=== PATIENT | female | born 1960 | race African-American/Black ===

== ENCOUNTER 2019-01-19 10:02 | Inpatient (IN) | payer OTHER ==
[2019-01-19] VITALS (11 sets, daily range): BP systolic 96–125; BP diastolic 55–63
[~2019-01-19] VITALS: Ht 160 cm; Wt 56.7 kg
--- NOTE | 2019-01-19 09:24 | NUR ---
ED Nurse Note: patient was brought in by RA from home, complaining of SOB, respiratory disstress, chest pain, and tightness. patient is spitting out blood clots while she coughs, AAO x 4, skin is dry, intact. by arriving in ER patient's O2 sat was 65%, RN placed simple mask for 10L. patient was placed in gown and connected to the monitor, will continue to monitor.
--- NOTE | 2019-01-19 09:56 | Emergency Room Report ---
History of Present Illness General Chief Complaint: Dyspnea/Respdistress Source: Patient, EMS Present Illness HPI This is a 58-year-old female with a history of pulmonary embolism, on Coumadin, who complains of several days of worsening shortness of breath that is exacerbated by exertion. Alleviated by rest. She also complains some chest pain when she coughs. She also complains of blood tinge in her sputum when she coughs. She denies any fever. She denies any melena. She denies any abdominal pain. Allergies: Coded Allergies: No Known Allergies (Unverified , 01/19/19) Patient History Past Medical History: see triage record, HTN Past Surgical History: none Pertinent Family History: HTN Nursing Documentation-PMH Hx Hypertension: Yes Hx Asthma: Yes Hx COPD: Yes - emphysema Review of Systems All Other Systems: negative except mentioned in HPI Physical Exam Vital Signs Date Time Temp Pulse Resp B/P (MAP) Pulse Ox O2 Delivery O2 Flow Rate FiO2 01/19/19 09:03 108 18 100/45 96 Nasal Cannula 4.0 01/19/19 09:16 98.0 General Appearance: well appearing, no apparent distress ENT: hearing grossly normal, normal voice Neck: full range of motion, supple Respiratory: lungs clear, no respiratory distress, crackles, speaking full sentences Gastrointestinal: normal inspection Musculoskeletal: normal inspection Neurologic: normal inspection, alert, oriented x3 Procedures Critical Care Time Critical Care Time Due to patient's severe illness: The patient was monitored and multiple bedside evaluations. I spent approximately 45 minutes of critical care time on this patient. This excluded any procedures or with any other patient. This is exclusive in the care of this patient in order stabilizer. Medical Decision Making ER Course Patient has had multiple bedside evaluation. The patient was initially on a nonrebreather and wa slowly titrated to nasocannula. The patient has been afebrile. Sepsis workup was initiated. Blood culture lactic acid was initiated as well. I did review the patient's chest x-ray and CT scan as well. The patient has been started on IV Zosyn as well. I will also very concerned about gastrointestinal bleeding. Therefore, after reviewing the patient's blood work, rectal exam was done with a female narcotics detective. I see no evidence of melena. The patient has had no abdomen pain or hematemesis. The patient's blood pressure did drop and was improved using IV hydration and blood transfusion. At this time the patient care. The patient will to be transferred for higher level of care. Laboratory Tests Test 01/19/19 09:51 01/19/19 10:20 01/19/19 11:22 Arterial Blood pH 7.491 (7.350-7.450) Arterial Blood Partial Pressure CO2 28.3 mmHg (35.0-45.0) L Arterial Blood Partial Pressure O2 236.0 mmHg (75.0-100.0) H Arterial Blood HCO3 21.1 mmol/L (22.0-26.0) L Arterial Blood Oxygen Saturation 99.1 % (95-100) Arterial Blood Base Excess -2.1 (-2-2) L Prakash Test Positive White Blood Count 10.7 K/UL (4.8-10.8) Red Blood Count 3.00 M/UL (4.20-5.40) L Hemoglobin 6.2 G/DL (12.0-16.0) *L Hematocrit 20.3 % (37.0-47.0) L Mean Corpuscular Volume 68 FL (80-99) L Mean Corpuscular Hemoglobin 20.5 PG (27.0-31.0) L Mean Corpuscular Hemoglobin Concent 30.3 G/DL (32.0-36.0) L Red Cell Distribution Width 19.4 % (11.6-14.8) H Platelet Count 648 K/UL (150-450) H Mean Platelet Volume 4.8 FL (6.5-10.1) L Neutrophils (%) (Auto) % (45.0-75.0) Lymphocytes (%) (Auto) % (20.0-45.0) Monocytes (%) (Auto) % (1.0-10.0) Eosinophils (%) (Auto) % (0.0-3.0) Basophils (%) (Auto) % (0.0-2.0) Differential Total Cells Counted 100 Neutrophils % (Manual) 77 % (45-75) H Lymphocytes % (Manual) 15 % (20-45) L Monocytes % (Manual) 8 % (1-10) Eosinophils % (Manual) 0 % (0-3) Basophils % (Manual) 0 % (0-2) Band Neutrophils 0 % (0-8) Platelet Estimate Increased H Platelet Morphology Normal Polychromasia 1+ Hypochromasia 3+ Anisocytosis 2+ Microcytosis 2+ Prothrombin Time 90.3 SEC (9.30-11.50) H Prothrombin Time INR 9.7 (0.9-1.1) *H Sodium Level 136 MMOL/L (136-145) Potassium Level 3.7 MMOL/L (3.5-5.1) Chloride Level 102 MMOL/L (98-107) Carbon Dioxide Level 27 MMOL/L (21-32) Anion Gap 7 mmol/L (5-15) Blood Urea Nitrogen 13 mg/dL (7-18) Creatinine 0.7 MG/DL (0.55-1.30) Estimate Glomerular Filtration Rate > 60 mL/min (>60) Glucose Level 100 MG/DL (74-106) Lactic Acid Level 1.50 mmol/L (0.4-2.0) Calcium Level 9.2 MG/DL (8.5-10.1) Magnesium Level 1.9 MG/DL (1.8-2.4) Total Bilirubin 0.2 MG/DL (0.2-1.0) Aspartate Amino Transferase (AST) 20 U/L (15-37) Alanine Aminotransferase (ALT) 34 U/L (12-78) Alkaline Phosphatase 100 U/L (46-116) Total Creatine Kinase 45 U/L (26-308) Creatine Kinase MB 0.9 NG/ML (0.0-3.6) Creatine Kinase MB Relative Index 2.0 Troponin I 0.000 ng/mL (0.000-0.056) Total Protein 7.3 G/DL (6.4-8.2) Albumin 2.7 G/DL (3.4-5.0) L Globulin 4.6 g/dL Albumin/Globulin Ratio 0.6 (1.0-2.7) L Urine Color Yellow Urine Appearance Clear Urine pH 6 (4.5-8.0) Urine Specific [place] 1.015 (1.005-1.035) Urine Protein Negative (NEGATIVE) Urine Glucose (UA) Negative (NEGATIVE) Urine Ketones Negative (NEGATIVE) Urine Blood 4+ (NEGATIVE) H Urine Nitrite Negative (NEGATIVE) Urine Bilirubin Negative (NEGATIVE) Urine Urobilinogen Normal MG/DL (0.0-1.0) Urine Leukocyte Esterase 3+ (NEGATIVE) H Urine RBC 2-4 /HPF (0 - 2) H Urine WBC 20-30 /HPF (0 - 2) H Urine Squamous Epithelial Cells Few /LPF (NONE/OCC) Urine Bacteria Few /HPF (NONE) EKG Diagnostic Results EKG Time: 09:56 Rate: normal Rhythm: NSR ST Segments: no acute changes ASA given to the pt in ED: No Last Vital Signs Date Time Temp Pulse Resp B/P (MAP) Pulse Ox O2 Delivery O2 Flow Rate FiO2 01/19/19 09:16 98.0 100 28 102/60 100 Simple Mask 10.0 Disposition: [facility]FER [facility] Condition: Serious ANDREW LEONARD Jan 19, 2019 09:56
[~2019-01-19 10:02] MED LIST: ACETAMINOPHEN-1 EACH ORAL; ETHAMBUTOL HCL400 MG PO; NORVASC10 MG ORAL; VENTOLIN HFA18 GM INH
--- NOTE | 2019-01-19 10:04 | NUR ---
ED Nurse Note: RT at bedside for imaging.
[2019-01-19] MEDS ORDERED: Norco 5mg/325mg tab ORAL ONE (10:15)
[2019-01-19 10:42] LABS: HEMATOCRIT 20.3 % (37.0-47.0); MEAN CORPUSCULAR VOLUME 68 FL (80-99); PLATELET COUNT 648 K/UL (150-450); RED CELL DISTRIBUTION WIDTH 19.4 % (11.6-14.8); WHITE BLOOD COUNT 10.7 K/UL (4.8-10.8)
[2019-01-19 10:48] LABS: HEMOGLOBIN 6.2 G/DL (12.0-16.0)
[2019-01-19 10:52] LABS: ANION GAP 7 mmol/L (5-15); BLOOD UREA NITROGEN 13 mg/dL (7-18); CALCIUM 9.2 MG/DL (8.5-10.1); CARBON DIOXIDE 27 MMOL/L (21-32); CHLORIDE 102 MMOL/L (98-107); CREATININE 0.7 MG/DL (0.55-1.30); POTASSIUM 3.7 MMOL/L (3.5-5.1); SODIUM 136 MMOL/L (136-145)
[2019-01-19 10:56] LABS: INR 9.7 (0.9-1.1)
[2019-01-19 11:06] LABS: ALANINE AMINOTRANSFERASE 34 U/L (12-78); ALBUMIN 2.7 G/DL (3.4-5.0); ALBUMIN/GLOBULIN RATIO 0.6 (1.0-2.7); ALKALINE PHOSPHATASE 100 U/L (46-116); ASPARTATE AMINO TRANSFERASE 20 U/L (15-37); BILIRUBIN,TOTAL 0.2 MG/DL (0.2-1.0); CKMB 0.9 NG/ML (0.0-3.6); CREATINE KINASE 45 U/L (26-308)
[2019-01-19] MEDS ORDERED: Piperacillin/Tazobactam 3.375 GM in NS 110 ML IVPB ONE (11:15)
--- NOTE | 2019-01-19 11:26 | NUR ---
ED Nurse Note: Pt urinated, using bedpan without any difficulty. Urine collected and sent to lab.
[2019-01-19] MEDS ORDERED: Isovue-300 100ml vial INJ PRN (11:30)
[2019-01-19 11:41] LABS: APPEARANCE,URINE CLEAR; BILIRUBIN, URINE NEGATIVE (NEGATIVE); GLUCOSE, URINE (UA) NEGATIVE (NEGATIVE); KETONES,URINE NEGATIVE (NEGATIVE); LEUKOCYTE ESTERASE ,URINE 3+ (NEGATIVE); NITRITE,URINE NEGATIVE (NEGATIVE); PH,URINE 6 (4.5-8.0); PROTEIN,URINE NEGATIVE (NEGATIVE); UROBILINOGEN,URINE NORMAL MG/DL (0.0-1.0)
[2019-01-19 11:54] LABS: COLOR,URINE YELLOW
--- NOTE | 2019-01-19 12:25 | NUR ---
ED Nurse Note: blood transfusion started at 1225 at the right AC 20 ga IV. Pre transfusion VS are oral Temp 97.9, HR 94, RR 20, BP 96/55. patient educated about transfusion reactions. RN at bed side to monitor patient during this period of time.
--- NOTE | 2019-01-19 12:40 | NUR ---
ED Nurse Note: 15 min pass afterv start, VSS: oral Temp 98.5, HR 89, RR 30, BP 98/55. no S/S of transfusion reaction at this time. AAO x 4. will continue to monitor.
[2019-01-19] MEDS ORDERED: Pantoprazole 80 MG in NS 250 ML IV ONE (13:00)
[2019-01-19] MEDS ORDERED: Pantoprazole Inj IVP ONE (13:00)
[2019-01-19] MEDS ORDERED: Pantoprazole Inj ONE (13:42)
--- NOTE | 2019-01-19 14:55 | NUR ---
ED Nurse Note: 15 min pass afterv start, VSS: oral Temp 98.1, HR 101, RR 30, BP 9100/56. no S/S of transfusion reaction at this time. AAO x 4. will continue to monitor.
--- NOTE | 2019-01-19 14:55 | NUR ---
ED Nurse Note: second unit of blood transfusion started at 1440 at the right AC 20 ga IV. Pre transfusion VS are oral Temp98.0, HR 94, RR 20, BP 97/44. patient educated about transfusion reactions. RN at bed side to monitor patient during this period of time.
[2019-01-19] MEDS ORDERED: Morphine Sulfate 2mg/ml Inj(IV/IM USE ONLY) IVP ONE ×3 (15:00→20:00)
--- NOTE | 2019-01-19 16:30 | NUR ---
ED Nurse Note: 2 bags of RBC infusion finished. no transfusion reaction reported by pt or noticed by RNs. BP 98/58, HR 99, RR 30, SAT 100% on 2 L NC at this time.
[2019-01-19] MEDS ORDERED: Ipratropium 0.02% Inh Soln 2.5ml UD HHN ONE (18:00)
[2019-01-19] MEDS ORDERED: Albuterol ud Inhalation HHN ONE ×2 (18:00→22:00)
--- NOTE | 2019-01-19 18:19 | NUR ---
ED Nurse Note: HANDED THE DISC COPY OF ALL RADIOLOGY RESULT TO BIPIN
[2019-01-19] MEDS ORDERED: WARFARIN SODIUM5 MG ORAL (18:50)
[2019-01-19] MEDS ORDERED: Albuterol 90mcg Inhaler 8gm INH PRN (20:30)
--- NOTE | 2019-01-19 22:15 | History and Physical Report ---
DATE OF ADMISSION: 01/19/2019 REASON FOR ADMISSION: 1. Elevated INR. 2. Hemoptysis. 3. Shortness of breath. HISTORY OF PRESENT ILLNESS: The patient is a 58-year-old white female with a known history of pulmonary embolism, who had been on anticoagulant, Coumadin, who presented to the emergency room for further evaluation and care of worsening shortness of breath. She noted that her shortness of breath was worsened by exertion and was alleviated by resting. No current active chest pain. The patient notes that her shortness of breath with some night sweats and fevers had started last week, and that today she started noticing every time she coughed, there was blood-tinged sputum along with an occasional nosebleed. Drug screen was positive for PCP and cocaine. At that time, INR was checked. Her INR level was 9.7 with hemoglobin of 6.2. ALLERGIES: No known drug allergies. PAST MEDICAL HISTORY: 1. Substance abuse. 2. Pulmonary embolism. 3. Hypertension. PAST SURGICAL HISTORY: None. FAMILY HISTORY: Positive for hypertension. REVIEW OF SYSTEMS: NEUROLOGIC: The patient denies headache, change in vision, syncope, or presyncopal episodes. CARDIOVASCULAR: No current chest pain, palpitations, or angina. PULMONARY: Shortness of breath with productive blood-tinged sputum. GASTROINTESTINAL/GENITOURINARY: No change in urinary or bowel habits. No nausea, vomiting, or diarrhea. ENDOCRINOLOGY: The patient was having some night sweats and fevers. MUSCULOSKELETAL: The patient is feeling weak, tired, and fatigued. PHYSICAL EXAMINATION: VITAL SIGNS: Blood pressure 108/59, temperature 98.1, pulse 90, respiratory rate 18, saturation 100% oxygen saturation on 2 L nasal cannula. GENERAL: The patient is awake, in mild respiratory distress. HEENT: Extraocular muscles intact. No lymphadenopathy. Oropharyngeal mucosa is clear and dry. CARDIOVASCULAR: S1 and S2. No rubs or gallops. No S3, no S4. PULMONARY: Mild upper airway wheezing with fair air movement in both lung mazariegos. ABDOMEN: Nondistended and nontender. EXTREMITIES: No edema. LABORATORY DATA: Labs dated January 19, 2019, white cell count 10.7, hemoglobin 6.2, and platelet count 648,000. Toxicology screen, positive for PCP and cocaine. Sodium 136, potassium 3.7, creatinine 0.7. Troponin zero. Albumin 2.7. ASSESSMENT AND PLAN: 1. Coumadin toxicity with elevated INR of 9.7. I spoke to Dr. Flor and requested 2 units of FFP to assist with the reversal of elevated INR. The patient also received 2 units of packed red blood cells. Coumadin will be held. 2. Polysubstance abuse with positive PCP and cocaine. The patient will require counseling during admission. 3. Shortness of breath. CT of the chest noted. The patient was referred to [facility] and was declined by the thoracic surgeon. 4. Shortness of breath and bronchospasm. We will continue nebulizer treatments. 5. Anemia with hemoglobin of 6.2 secondary to coagulopathy. The patient to be given FFP and blood transfusion. Gastroenterology, Dr. Yoder, has been consulted. 6. Abnormal CT. 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 Jim Pinto MD DR: JE JOB#: [id number] CC:
--- NOTE | 2019-01-19 22:42 | NUR ---
ED Nurse Note: Reporte given to Adriano LEMUS in ICU, all pt report and status and vital signs as well as conditions has been reported. pt stable for transfer.
--- NOTE | 2019-01-19 22:48 | NUR ---
ED Nurse Note: PT refused CRE/ VRE swab.
--- NOTE | 2019-01-19 23:00 | NUR ---
NURSE NOTES: Patient admitted to ICU from ER. Patient is alert and oriented. ON Nasal Cannula at 2L. SpO2 85% with good wave form. Right lung sound is absent and left lung sound wheezing. Patient noted have 2 AC R and L both 20g. Patient HR 111ST. Cultures pending. NS at 75ml/hr. 2nd FFP hung.
[2019-01-19] MEDS: Morphine Sulfate 2mg/ml Inj(IV/IM USE ONLY) IVP PRN (23:35)
[2019-01-20] VITALS (24 sets, daily range): BP systolic 105–175; BP diastolic 44–92
--- NOTE | 2019-01-20 | NUR ---
NURSE NOTES: Patient noted to have a bout of SOB, Patient MDI treatment given but with no relive. Patient SpO2 decreased to the 60s and 70s. Called Dr. Pinto and notified. Added albuterol to nebulizer.
--- NOTE | 2019-01-20 00:51 | NUR ---
RESPIRATORY NOTE: PT. EXPERIENCING SOB. ALBUTEROL MDI ADMINISTERED BUT LITTLE TO NO IMPROVEMENT WAS NOTED. PT. SATURATION CONTINUES TO BE LOW. SUGGESTED PT. TO BE PLACED ON VENTURI MASK BUT PT. REFUSES VENTURI MASK. PT PLACED ON NASAL CANNULA AT 3LPM 02. WILL CONTINUE TO MONITOR.
--- NOTE | 2019-01-20 02:00 | NUR ---
RESPIRATORY NOTE: PT PLACE ON BIPAP DUE TO ACUTE SOB EPISODE. SETTINGS 15/6, RATE 16, 100% FIO2. PT. CURRENTLY ON FACIAL MASK. SPONGE TAPE IN PLACE TO PREVENT FACIAL WOUNDS. PT. UNDERSTANDS REASON FOR BEING PLACED ON BIPAP. ALARM SET, ON AND AUDIBLE. PT REMAINS TACHYPNEIC WITH A RR OF 28. WILL CONTINUE TO MONITOR.
--- NOTE | 2019-01-20 02:00 | NUR ---
NURSE NOTES: Patient had another episode of SOB. Patient switch to venturi mask. Called Dr. Dorsey and notified of patients status. Orders for BIPAP 15/6 at 100%. Patient Spo2 increased to 100%. BP remains normotensive. FFP almost done, no reaction so far, remains afebrile.
[2019-01-20] MEDS: Albuterol ud Inhalation HHN SCH ×6 (02:36→23:05)
[2019-01-20] MEDS: Morphine Sulfate 2mg/ml Inj(IV/IM USE ONLY) IVP PRN ×5 (03:10→20:17)
--- NOTE | 2019-01-20 04:00 | NUR ---
NURSE NOTES: Patient is more calm and relaxed at this time. She does continue to state chest and head pain rating of 5/10. Patient already given Morphine 0.5mg PRN twice. Patients work of breathing has been better controlled since the BIPAP and the PRN breathing treatments. Current HR is 102 ST, 126/72, 98.2F, SpO2 100%. Patient is still slightly tachypneic but less than before and better tolerated per patients own statements.
--- NOTE | 2019-01-20 05:14 | NUR ---
RESPIRATORY NOTE: PT. STABLE ON BIPAP WITH CURRENT SETTINGS. PT. REMAINS TACHYPNEIC BUT MORE RELAXED AND CONDITION HAS IMPROVED SINCE BEING PLACED ON BIPAP AND POST BREATHING TREATMENT. SPONGE TAPE SECURELY IN PLACE. NO SKIN BREAKDOWN NOTED.
--- NOTE | 2019-01-20 06:00 | NUR ---
NURSE NOTES: Patient changed and cleaned. Patient continues to be on BIPAP, Fio2 now at 80%. Patient continues to have Pinkish-red sputum. Patient has yaunker suction at bedside. NAD at this time.
[2019-01-20 06:17] LABS: HEMATOCRIT 24.9 % (37.0-47.0); HEMOGLOBIN 7.7 G/DL (12.0-16.0); MEAN CORPUSCULAR VOLUME 74 FL (80-99); PLATELET COUNT 464 K/UL (150-450); RED BLOOD COUNT 3.37 M/UL (4.20-5.40); RED CELL DISTRIBUTION WIDTH 19.3 % (11.6-14.8); WHITE BLOOD COUNT 14.1 K/UL (4.8-10.8)
[2019-01-20 06:50] LABS: ANION GAP 8 mmol/L (5-15); BLOOD UREA NITROGEN 5 mg/dL (7-18); CALCIUM 8.7 MG/DL (8.5-10.1); CARBON DIOXIDE 26 MMOL/L (21-32); CHLORIDE 103 MMOL/L (98-107); CREATININE 0.6 MG/DL (0.55-1.30); POTASSIUM 3.9 MMOL/L (3.5-5.1); SODIUM 137 MMOL/L (136-145)
--- NOTE | 2019-01-20 07:30 | NUR ---
RESPIRATORY NOTE: Received pt on Bipap 15/6- 80% FiO2, pt is tolerating well. Pt is awake, alert, but SOB, shallow, tachypneic RR 29-35bpm. Left rhonchi diminished and right diminished breath sounds heard upon auscultation. Orally suctioned small amount of thick/thin red, brown and red specks secretions per pt. Family member at bedside. Took off mask to check toleration and skin breakdown. No redness or skin breakdown noted. Foam tapes reapplied on cheeks, chin and nose bridge to prevent skin breakdown. Pt complained "can't breath" when off Bipap and on 5L NC. Breathing TX given without any adverse reactions. Alarms are on and audible, Bipap is plugged into the red outlet. Ambu bag is at bedside. Will continue to monitor pt.
--- NOTE | 2019-01-20 07:40 | NUR ---
NURSE NOTES: Report received from Edilson LEMUS. Pt alert and oriented x4, able to make needs known. Pt connected to court monitor, ST. Pt on bipap 10/05. Purewick intact and in place. RAC 20 G intact with maintenance IVF running. at bedside. Safety measures in place with bed locked and in lowest position, side rails x3 up and bed alarm on. Will continue to monitor.
--- NOTE | 2019-01-20 08:01 | Nephrology Progress Note ---
Assessment/Plan Assessment/Plan A/P 1) Coumadin toxicity- last INR 9.7 - AM INR pending - s/p FFP 2) Anemia- Hgb 7.7 post blood tx. - GI to evaluate 3) Resp FL- on BiPAP, pulm to manage 4) Polysubstance Abuse- PCP and cocaine - will need substance abuse counselling 5) UTI- Rocephin 6) ?? 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 ID to address and evaluate need for ethambutal 7) DVT prophylaxsis- elevated INR, just monitor Subjective Date patient seen: Jan 20, 2019 Time patient seen: 07:54 ROS Limited/Unobtainable: No Respiratory: Reports: shortness of breath Allergies: Coded Allergies: No Known Allergies (Unverified , 01/19/19) All Systems: reviewed and negative except above Subjective Patient with BiPAP on. Feeling better Objective Last 24 Hour Vital Signs Date Time Temp Pulse Resp B/P (MAP) Pulse Ox O2 Delivery O2 Flow Rate FiO2 01/20/19 07:19 100 33 100 Bi-pap 80 01/20/19 07:00 102 30 132/92 (105) 100 01/20/19 06:00 95 26 116/69 (85) 100 01/20/19 05:14 118 33 100 Facial 100 01/20/19 05:00 80 01/20/19 05:00 117 28 143/84 (103) 100 01/20/19 04:00 107 01/20/19 04:00 100 01/20/19 04:00 Bi-pap Bi-pap 01/20/19 04:00 97.9 101 30 126/72 (90) 100 01/20/19 03:00 115 36 106/55 (72) 83 01/20/19 02:45 105 28 100 Bi-pap 100 01/20/19 02:36 111 39 100 Facial 100 01/20/19 02:36 111 39 100 Bi-pap 100 01/20/19 02:00 108 34 100 Facial 100 01/20/19 02:00 110 36 125/72 (89) 83 01/20/19 01:52 100 01/20/19 01:00 107 36 105/44 (64) 83 01/20/19 00:52 103 29 88 Nasal Cannula 3.0 32 01/20/19 00:49 108 35 88 Nasal Cannula 3.0 32 01/20/19 00:00 103 01/20/19 00:00 2.0 01/20/19 00:00 97 31 120/53 (75) 88 01/20/19 00:00 Bi-pap 01/19/19 23:28 110 01/19/19 23:21 Nasal Cannula 2.0 01/19/19 23:18 98.6 103 29 125/61 (82) 90 01/19/19 23:03 98.1 87 19 110/61 100 Nasal Cannula 2.0 40 87 01/19/19 22:40 98.1 87 19 110/61 100 Nasal Cannula 2.0 87 01/19/19 22:10 40 01/19/19 22:05 96 20 100 Nasal Cannula 5.0 40 01/19/19 21:14 98.1 90 19 108/63 100 Nasal Cannula 2.0 90 01/19/19 19:15 98.1 90 18 108/59 100 Nasal Cannula 2.0 01/19/19 18:29 100 32 100 Nasal Cannula 4.0 40 01/19/19 17:57 95 27 100 Nasal Cannula 5.0 40 01/19/19 17:57 40 01/19/19 17:57 95 27 Nasal Cannula 5.0 40 01/19/19 17:29 98 21 107/62 98 Nasal Cannula 2.0 01/19/19 16:30 98.1 99 30 98/58 100 Nasal Cannula 2.0 01/19/19 15:44 98.1 87 26 104/60 100 Nasal Cannula 2.0 01/19/19 15:30 98.1 01/19/19 12:40 98.5 89 30 98/55 100 Room Air 2.0 01/19/19 12:20 97.9 94 25 96/55 99 Nasal Cannula 2.0 01/19/19 11:07 99.0 94 20 106/62 100 Simple Mask 10.0 01/19/19 09:16 98.0 100 28 102/60 100 Simple Mask 10.0 01/19/19 09:16 94 26 Simple Mask 10.0 01/19/19 09:03 108 18 100/45 96 Nasal Cannula 4.0 Intake and Output 01/19/19 01/20/19 19:00 07:00 Intake Total 1110 ml 925 ml Output Total 500 ml Balance 1110 ml 425 ml Intake Oral 400 ml IV Total 1110 ml 525 ml Output Urine Total 500 ml # Voids 1 1 Laboratory Tests 01/19/19 09:51: Arterial Blood pH 7.491H, Arterial Blood Partial Pressure CO2 28.3L, Arterial Blood Partial Pressure O2 236.0H, Arterial Blood HCO3 21.1L, Arterial Blood Oxygen Saturation 99.1, Arterial Blood Base Excess -2.1L, Prakash Test Positive 01/19/19 10:20: White Blood Count 10.7, Red Blood Count 3.00L, Hemoglobin 6.2*L, Hematocrit 20.3L, Mean Corpuscular Volume 68L, Mean Corpuscular Hemoglobin 20.5L, Mean Corpuscular Hemoglobin Concent 30.3L, Red Cell Distribution Width 19.4H, Platelet Count 648H, Mean Platelet Volume 4.8L, Neutrophils (%) (Auto) , Lymphocytes (%) (Auto) , Monocytes (%) (Auto) , Eosinophils (%) (Auto) , Basophils (%) (Auto) , Differential Total Cells Counted 100, Neutrophils % ( Manual) 77H, Lymphocytes % (Manual) 15L, Monocytes % (Manual) 8, Eosinophils % ( Manual) 0, Basophils % (Manual) 0, Band Neutrophils 0, Platelet Estimate IncreasedH, Platelet Morphology Normal, Polychromasia 1+, Hypochromasia 3+, Anisocytosis 2+, Microcytosis 2+, Prothrombin Time 90.3H, Prothromb Time International Ratio 9.7*H, Sodium Level 136, Potassium Level 3.7, Chloride Level 102, Carbon Dioxide Level 27, Anion Gap 7, Blood Urea Nitrogen 13, Creatinine 0.7, Estimat Glomerular Filtration Rate > 60, Glucose Level 100, Lactic Acid Level 1.50, Calcium Level 9.2, Magnesium Level 1.9, Total Bilirubin 0.2, Aspartate Amino Transf (AST/SGOT) 20, Alanine Aminotransferase (ALT/SGPT) 34, Alkaline Phosphatase 100, Total Creatine Kinase 45, Creatine Kinase MB 0.9, Creatine Kinase MB Relative Index 2.0, Troponin I 0.000, Total Protein 7.3, Albumin 2.7L, Globulin 4.6, Albumin/Globulin Ratio 0.6L 01/19/19 11:22: Urine Color Yellow, Urine Appearance Clear, Urine pH 6, Urine Specific [place] 1.015, Urine Protein Negative, Urine Glucose (UA) Negative, Urine Ketones Negative, Urine Blood 4+H, Urine Nitrite Negative, Urine Bilirubin Negative, Urine Urobilinogen Normal, Urine Leukocyte Esterase 3+H, Urine RBC 2-4H, Urine WBC 20-30H, Urine Squamous Epithelial Cells Few, Urine Bacteria Few, Urine Opiates Screen Negative, Urine Barbiturates Screen Negative, Phencyclidine (PCP ) Screen PositiveH, Urine Amphetamines Screen Negative, Urine Benzodiazepines Screen Negative, Urine Cocaine Screen PositiveH, Urine Marijuana (THC) Screen Negative 01/20/19 04:50: White Blood Count 14.1H, Red Blood Count 3.37L, Hemoglobin 7.7L, Hematocrit 24.9L, Mean Corpuscular Volume 74#L, Mean Corpuscular Hemoglobin 22.9L, Mean Corpuscular Hemoglobin Concent 31.1L, Red Cell Distribution Width 19.3H, Platelet Count 464H, Mean Platelet Volume 4.3L, Neutrophils (%) (Auto) , Lymphocytes (%) (Auto) , Monocytes (%) (Auto) , Eosinophils (%) (Auto) , Basophils (%) (Auto) , Neutrophils % (Manual) [Pending], Lymphocytes % (Manual) [Pending], Platelet Estimate [Pending], Platelet Morphology [Pending], Sodium Level 137, Potassium Level 3.9, Chloride Level 103, Carbon Dioxide Level 26, Anion Gap 8, Blood Urea Nitrogen 5L, Creatinine 0.6, Estimat Glomerular Filtration Rate > 60, Glucose Level 109H, Calcium Level 8.7 Height (Feet): 5 Height (Inches): 3.00 Weight (Pounds): 125 General Appearance: no apparent distress, alert EENT: normal ENT inspection Neck: normal alignment, supple Cardiovascular: normal rate, regular rhythm Respiratory/Chest: lungs clear, normal breath sounds Abdomen: non tender, soft Edema: no edema noted Arm (L), no edema noted Arm (R), no edema noted Leg (L), no edema noted Leg (R), no edema noted Pedal (L), no edema noted Pedal (R), no edema noted Generalized Jim Pinto MD Jan 20, 2019 08:01
[2019-01-20] MEDS ORDERED: cefTRIAXone 1gm/D5W 55ml IVPB SCH ×2 (09:30)
--- NOTE | 2019-01-20 09:56 | NUR ---
NURSE NOTES: Dr García here to see pt. STAT PT/INR ordered. Will continue to monitor.
--- NOTE | 2019-01-20 10:08 | NUR ---
NURSE NOTES: Dr Dorsey here to see pt. Dr tolentino pt can be downgraded to tele with bipap. Will continue to monitor.
--- NOTE | 2019-01-20 11:32 | Consultation ---
History of Present Illness General Date patient seen: Jan 20, 2019 Chief Complaint: Dyspnea/Respdistress Present Illness HPI 58 y/o F with hx of HTN, asthma/COPD, PE on Coumadin, substance abuse presents to ED on 01/19 with several days of worsening PARMAR, cough and chest pain when she coughs. She reports some blood tinged sputum. Patient reported some night sweats and fevers that started last week. Denied fever, melena, abd pain upon admission. UDS + PCP and cocaine. INR elevated upon admission to 9.7 and Hgb of 6.2 Allergies: Coded Allergies: No Known Allergies (Unverified , 01/19/19) Medication History Scheduled Albuterol Sulfate (Ventolin Hfa), 2 PUFFS INH EVERY 6 HOURS, (Reported) Amlodipine Besylate (Norvasc), 10 MG ORAL DAILY, (Reported) Warfarin Sod* (Warfarin Sod*), 5 MG ORAL DAILY, (Reported) Scheduled PRN Acetaminophen With Codeine #2 Tablet (Acetaminophen With Codeine #2 Tablet), 1 TAB ORAL Q6H PRN for For Pain, (Reported) Miscellaneous Medications Ethambutol Hcl (Ethambutol Hcl), 400 MG PO, (Reported) Patient History Healthcare decision maker Resuscitation status Full Code Advanced Directive on File No Patient History Narrative Pmhx: as above Shx: reviewed Fhx: non contributory Review of Systems All Other Systems: negative except mentioned in HPI Physical Exam Physical Exam Narrative GENERAL: The patient is awake, in mild respiratory distress. HEENT: Extraocular muscles intact. No lymphadenopathy. Oropharyngeal mucosa is clear and dry. CARDIOVASCULAR: S1 and S2. No rubs or gallops. No S3, no S4. PULMONARY: Mild upper airway wheezing with fair air movement in both lung mazariegos. ABDOMEN: Nondistended and nontender. EXTREMITIES: No edema. Last 24 Hour Vital Signs Date Time Temp Pulse Resp B/P (MAP) Pulse Ox O2 Delivery O2 Flow Rate FiO2 01/20/19 11:05 101 35 100 Bi-pap 70 01/20/19 10:00 107 36 123/83 (96) 100 01/20/19 09:00 106 35 147/74 (98) 98 01/20/19 08:45 104 33 100 Facial 70 01/20/19 08:00 98 01/20/19 08:00 97.6 95 28 128/66 (86) 100 2/25/19 08:00 Bi-pap Bi-pap Bi-pap 01/20/19 07:30 96 29 100 Facial 70 01/20/19 07:30 96 29 100 Bi-pap 70 01/20/19 07:19 100 33 100 Bi-pap 80 01/20/19 07:00 102 30 132/92 (105) 100 01/20/19 06:00 95 26 116/69 (85) 100 01/20/19 05:14 118 33 100 Facial 100 01/20/19 05:00 80 01/20/19 05:00 117 28 143/84 (103) 100 01/20/19 04:00 107 01/20/19 04:00 100 01/20/19 04:00 Bi-pap Bi-pap 01/20/19 04:00 97.9 101 30 126/72 (90) 100 01/20/19 03:00 115 36 106/55 (72) 83 01/20/19 02:45 105 28 100 Bi-pap 100 01/20/19 02:36 111 39 100 Facial 100 01/20/19 02:36 111 39 100 Bi-pap 100 01/20/19 02:00 108 34 100 Facial 100 01/20/19 02:00 110 36 125/72 (89) 83 01/20/19 01:52 100 01/20/19 01:00 107 36 105/44 (64) 83 01/20/19 00:52 103 29 88 Nasal Cannula 3.0 32 01/20/19 00:49 108 35 88 Nasal Cannula 3.0 32 01/20/19 00:00 103 01/20/19 00:00 2.0 01/20/19 00:00 97 31 120/53 (75) 88 01/20/19 00:00 Bi-pap 01/19/19 23:28 110 01/19/19 23:21 Nasal Cannula 2.0 01/19/19 23:18 98.6 103 29 125/61 (82) 90 01/19/19 23:03 98.1 87 19 110/61 100 Nasal Cannula 2.0 40 87 01/19/19 22:40 98.1 87 19 110/61 100 Nasal Cannula 2.0 87 01/19/19 22:10 40 01/19/19 22:05 96 20 100 Nasal Cannula 5.0 40 01/19/19 21:14 98.1 90 19 108/63 100 Nasal Cannula 2.0 90 01/19/19 19:15 98.1 90 18 108/59 100 Nasal Cannula 2.0 01/19/19 18:29 100 32 100 Nasal Cannula 4.0 40 01/19/19 17:57 95 27 100 Nasal Cannula 5.0 40 01/19/19 17:57 40 01/19/19 17:57 95 27 Nasal Cannula 5.0 40 01/19/19 17:29 98 21 107/62 98 Nasal Cannula 2.0 01/19/19 16:30 98.1 99 30 98/58 100 Nasal Cannula 2.0 01/19/19 15:44 98.1 87 26 104/60 100 Nasal Cannula 2.0 01/19/19 15:30 98.1 01/19/19 12:40 98.5 89 30 98/55 100 Room Air 2.0 01/19/19 12:20 97.9 94 25 96/55 99 Nasal Cannula 2.0 Intake and Output 01/19/19 01/20/19 19:00 07:00 Intake Total 1110 ml 925 ml Output Total 500 ml Balance 1110 ml 425 ml Intake Oral 400 ml IV Total 1110 ml 525 ml Output Urine Total 500 ml # Voids 1 1 Laboratory Tests Test 01/19/19 11:22 01/20/19 04:50 01/20/19 08:19 01/20/19 08:40 Urine Color Yellow Urine Appearance Clear Urine pH 6 (4.5-8.0) Urine Specific [place] 1.015 (1.005-1.035) Urine Protein Negative (NEGATIVE) Urine Glucose (UA) Negative (NEGATIVE) Urine Ketones Negative (NEGATIVE) Urine Blood 4+ (NEGATIVE) H Urine Nitrite Negative (NEGATIVE) Urine Bilirubin Negative (NEGATIVE) Urine Urobilinogen Normal MG/DL (0.0-1.0) Urine Leukocyte Esterase 3+ (NEGATIVE) H Urine RBC 2-4 /HPF (0 - 2) H Urine WBC 20-30 /HPF (0 - 2) H Urine Squamous Epithelial Cells Few /LPF (NONE/OCC) Urine Bacteria Few /HPF (NONE) Urine Opiates Screen Negative (NEGATIVE) Urine Barbiturates Screen Negative (NEGATIVE) Phencyclidine (PCP) Screen Positive (NEGATIVE) H Urine Amphetamines Screen Negative (NEGATIVE) Urine Benzodiazepines Screen Negative (NEGATIVE) Urine Cocaine Screen Positive (NEGATIVE) H Urine Marijuana (THC) Screen Negative (NEGATIVE) White Blood Count 14.1 K/UL (4.8-10.8) H Red Blood Count 3.37 M/UL (4.20-5.40) L Hemoglobin 7.7 G/DL (12.0-16.0) L Hematocrit 24.9 % (37.0-47.0) L Mean Corpuscular Volume 74 FL (80-99) #L Mean Corpuscular Hemoglobin 22.9 PG (27.0-31.0) L Mean Corpuscular Hemoglobin Concent 31.1 G/DL (32.0-36.0) L Red Cell Distribution Width 19.3 % (11.6-14.8) H Platelet Count 464 K/UL (150-450) H Mean Platelet Volume 4.3 FL (6.5-10.1) L Neutrophils (%) (Auto) % (45.0-75.0) Lymphocytes (%) (Auto) % (20.0-45.0) Monocytes (%) (Auto) % (1.0-10.0) Eosinophils (%) (Auto) % (0.0-3.0) Basophils (%) (Auto) % (0.0-2.0) Differential Total Cells Counted 100 Neutrophils % (Manual) 85 % (45-75) H Lymphocytes % (Manual) 12 % (20-45) L Monocytes % (Manual) 3 % (1-10) Eosinophils % (Manual) 0 % (0-3) Basophils % (Manual) 0 % (0-2) Band Neutrophils 0 % (0-8) Platelet Estimate Adequate Platelet Morphology Normal Polychromasia 1+ Hypochromasia 2+ Anisocytosis 1+ Microcytosis 2+ Schistocytes Rare Sodium Level 137 MMOL/L (136-145) Potassium Level 3.9 MMOL/L (3.5-5.1) Chloride Level 103 MMOL/L (98-107) Carbon Dioxide Level 26 MMOL/L (21-32) Anion Gap 8 mmol/L (5-15) Blood Urea Nitrogen 5 mg/dL (7-18) L Creatinine 0.6 MG/DL (0.55-1.30) Estimat Glomerular Filtration Rate > 60 mL/min (>60) Glucose Level 109 MG/DL (74-106) H Calcium Level 8.7 MG/DL (8.5-10.1) Prothrombin Time 30.0 SEC (9.30-11.50) H Prothromb Time International Ratio 3.0 (0.9-1.1) H Arterial Blood pH 7.418 (7.350-7.450) Arterial Blood Partial Pressure CO2 39.5 mmHg (35.0-45.0) Arterial Blood Partial Pressure O2 83.5 mmHg (75.0-100.0) Arterial Blood HCO3 24.9 mmol/L (22.0-26.0) Arterial Blood Oxygen Saturation 95.5 % (95-100) Arterial Blood Base Excess 0.4 (-2-2) Prakash Test Positive Microbiology Date/Time Source Procedure Growth Status 01/19/19 11:22 Urine,Clean Catch Urine Culture - Preliminary Resulted Height (Feet): 5 Height (Inches): 3.00 Weight (Pounds): 125 Medications Current Medications Medications (Trade) Dose Ordered Sig/Roxanne Route PRN Reason Start Time Stop Time Status Last Admin Dose Admin Acetaminophen (Tylenol) 650 mg Q4H PRN ORAL Mild Pain (Pain Scale 1-3) 01/19/19 20:30 02/18/19 20:29 Albuterol Sulfate (Proventil MDI) 2 puff Q4H PRN INH Shortness of Breath 01/19/19 20:30 02/18/19 20:29 01/20/19 00:49 Albuterol Sulfate (Proventil) 2.5 mg Q4HRT HHN 01/20/19 03:00 01/25/19 02:59 01/20/19 11:05 Ceftriaxone Sodium 1 gm/ Dextrose 55 ml @ 110 mls/hr Q24H IVPB 01/20/19 09:30 01/27/19 09:29 01/20/19 09:20 Dextrose (Dextrose 50%) 25 ml Q30M PRN IV Hypoglycemia 01/19/19 20:30 02/18/19 20:29 Dextrose (Dextrose 50%) 50 ml Q30M PRN IV Hypoglycemia 01/19/19 20:30 02/18/19 20:29 Diphenhydramine HCl (Benadryl) 25 mg Q6H PRN ORAL Itching/Pruritis 01/19/19 20:30 02/18/19 20:29 01/19/19 23:35 Iopamidol (Isovue-300 100ml) 100 ml NOW PRN INJ Radiology Procedure 01/19/19 11:30 01/21/19 11:16 Morphine Sulfate (Morphine Sulfate) 0.5 mg Q4H PRN IVP Moderate Pain (Pain Scale 4-6) 01/19/19 20:30 01/26/19 20:29 01/20/19 07:44 Ondansetron HCl (Zofran) 4 mg Q6H PRN IVP Nausea & Vomiting 01/19/19 20:30 02/18/19 20:29 Ondansetron HCl (Zofran) 4 mg Q6H PRN IVP Nausea & Vomiting 01/19/19 20:30 02/18/19 20:29 Pantoprazole (Protonix) 40 mg DAILY ORAL 01/19/19 21:00 02/18/19 20:59 01/20/19 09:20 Sodium Chloride 1,000 ml @ 75 mls/hr [id number] IV 01/19/19 20:30 02/18/19 20:29 01/20/19 09:20 Assessment/Plan Assessment/Plan Abx: Zosyn x1 01/19 Ceftriaxone 01/20- Assessment: Hemoptysis Cavitary PNA- r/o TB MRSA, vs aspiration pneumonia -CT chest: Irregular pleural thickening throught R hemithorax. Small amount of fluid and otherwise large amount of gas filling the R chest cavity. Severe centrilobular emphysematous changes throughout the left lung. Patchy consolidation with multiple areas of cavitation. Additional nodular densities and reticulonodular densities throught the left lung. Findings are compatible with an infectious/inflammatory process. Supratherapeutic INR Afebrile Leukocytosis -u/a wbc 20-30, nit neg, leuk +3; ucx p HTN asthma/COPD PE on Coumadin substance abuse -UDS+ cocaine, PCP Plan: -Continue empiric Ceftriaxone #1 and add Flagyl and IV Vancomycin for anaerobic and MRSA coverage, respectively -Airborne precautions -AFB sp cx x3, MTB pCR x1 -f/u cx -Monitor CBC/CMP, temperatures -f/u CT chest report -sp cx (bacterial and fungal) -ICU care -Aspiration precautions -Cocci ab, CrAg, Histoplasmas ab and ag, legionella ag urine, Asp ag, fungitell , TB spot Thank you for this consultation. Will continue to follow along with you. Discussed with Adrianna Abbott M.D. Jan 20, 2019 11:32
--- NOTE | 2019-01-20 11:34 | NUR ---
NURSE NOTES: Pt complaining of SOB while on bipap. RT called to assess. Will continue to monitor.
--- NOTE | 2019-01-20 12:00 | Consultation ---
DATE OF CONSULTATION: 01/20/2019 PULMONARY CONSULTATION CONSULTING PHYSICIAN: Yuri Dorsey M.D. HISTORY OF PRESENT ILLNESS: This is a 58-year-old female with a history of pulmonary embolism and chronic anticoagulation. She came to the hospital with shortness of breath. She was noted to have coagulopathy with high INR. It is also noted that drug screen is positive for PCP and cocaine. The patient underwent imaging studies in the ER and there was no obvious pneumothorax noted. The patient is now admitted to the ICU. PAST HISTORY: Pulmonary embolism, hypertension, and substance abuse. ALLERGIES: None. HOME MEDICATIONS: Reviewed and reconciled in the chart. PAST SURGICAL HISTORY: None reported. REVIEW OF SYSTEMS: The patient denies any headaches, hematemesis, melena, or hematochezia. PHYSICAL EXAMINATION: GENERAL: Reveals a 58-year-old female. HEENT: Unremarkable. LUNGS: Clear breath sounds bilaterally. HEART: Normal heart sounds. ABDOMEN: Soft. NEUROLOGIC: Nonfocal. LABORATORY DATA: Lab testing discussed above notable for hemoglobin now 7.7, previously was 6.2, platelet count is 464,000. CBC otherwise shows white count of 14,000. Chemistries are unremarkable. ABG, pH 7.41, pCO2 39, and pO2 83. Coags, INR now is 3. Urinalysis shows wbc. Toxicology positive for phencyclidine and cocaine. IMPRESSION: 1. Substance abuse. 2. Hypoxemia. 3. Shortness of breath. 4. Coumadin toxicity. 5. Anemia. DISCUSSION: Admitted to the ICU/[facility]. We will follow carefully. Order oxygen, pulmonary hygiene, supportive care. The patient will be continued on albuterol, Atrovent, IV Rocephin, IV fluids, pain control, and antiemetics. DVT and GI prophylaxis and IV fluids. We will follow carefully. Yuri Dorsey M.D. DR: CATARINA JOB#: [id number] CC:
--- NOTE | 2019-01-20 12:30 | General Progress Note ---
Assessment/Plan Problem List: (1) poly sub abuse (2) Respiratory distress ICD Codes: R06.03 - Acute respiratory distress SNOMED: 750089496 (3) Dyspnea ICD Codes: R06.00 - Dyspnea, unspecified SNOMED: 558431571 (4) Anemia ICD Codes: D64.9 - Anemia, unspecified SNOMED: 907378708 Assessment/Plan Anemia work up ordered not stable for GI procedures at this time fu pulm will fu Subjective ROS Limited/Unobtainable: Yes Allergies: Coded Allergies: No Known Allergies (Unverified , 01/19/19) Objective Last 24 Hour Vital Signs Date Time Temp Pulse Resp B/P (MAP) Pulse Ox O2 Delivery O2 Flow Rate FiO2 01/20/19 11:05 101 35 100 Bi-pap 70 01/20/19 11:00 101 35 132/73 (92) 99 01/20/19 10:00 107 36 123/83 (96) 100 01/20/19 09:00 106 35 147/74 (98) 98 01/20/19 08:45 104 33 100 Facial 70 01/20/19 08:00 98 01/20/19 08:00 97.6 95 28 128/66 (86) 100 01/20/19 08:00 Bi-pap Bi-pap Bi-pap 01/20/19 07:30 96 29 100 Facial 70 01/20/19 07:30 96 29 100 Bi-pap 70 01/20/19 07:19 100 33 100 Bi-pap 80 01/20/19 07:00 102 30 132/92 (105) 100 01/20/19 06:00 95 26 116/69 (85) 100 01/20/19 05:14 118 33 100 Facial 100 01/20/19 05:00 80 01/20/19 05:00 117 28 143/84 (103) 100 01/20/19 04:00 107 01/20/19 04:00 100 01/20/19 04:00 Bi-pap Bi-pap 01/20/19 04:00 97.9 101 30 126/72 (90) 100 01/20/19 03:00 115 36 106/55 (72) 83 01/20/19 02:45 105 28 100 Bi-pap 100 01/20/19 02:36 111 39 100 Facial 100 01/20/19 02:36 111 39 100 Bi-pap 100 2/25/19 02:00 108 34 100 Facial 100 01/20/19 02:00 110 36 125/72 (89) 83 01/20/19 01:52 100 01/20/19 01:00 107 36 105/44 (64) 83 01/20/19 00:52 103 29 88 Nasal Cannula 3.0 32 01/20/19 00:49 108 35 88 Nasal Cannula 3.0 32 01/20/19 00:00 103 01/20/19 00:00 2.0 01/20/19 00:00 97 31 120/53 (75) 88 01/20/19 00:00 Bi-pap 01/19/19 23:28 110 01/19/19 23:21 Nasal Cannula 2.0 01/19/19 23:18 98.6 103 29 125/61 (82) 90 01/19/19 23:03 98.1 87 19 110/61 100 Nasal Cannula 2.0 40 87 01/19/19 22:40 98.1 87 19 110/61 100 Nasal Cannula 2.0 87 01/19/19 22:10 40 01/19/19 22:05 96 20 100 Nasal Cannula 5.0 40 01/19/19 21:14 98.1 90 19 108/63 100 Nasal Cannula 2.0 90 01/19/19 19:15 98.1 90 18 108/59 100 Nasal Cannula 2.0 01/19/19 18:29 100 32 100 Nasal Cannula 4.0 40 01/19/19 17:57 95 27 100 Nasal Cannula 5.0 40 01/19/19 17:57 40 01/19/19 17:57 95 27 Nasal Cannula 5.0 40 01/19/19 17:29 98 21 107/62 98 Nasal Cannula 2.0 01/19/19 16:30 98.1 99 30 98/58 100 Nasal Cannula 2.0 01/19/19 15:44 98.1 87 26 104/60 100 Nasal Cannula 2.0 01/19/19 15:30 98.1 01/19/19 12:40 98.5 89 30 98/55 100 Room Air 2.0 Intake and Output 01/19/19 01/20/19 19:00 07:00 Intake Total 1110 ml 925 ml Output Total 500 ml Balance 1110 ml 425 ml Intake Oral 400 ml IV Total 1110 ml 525 ml Output Urine Total 500 ml # Voids 1 1 Laboratory Tests 01/20/19 04:50: White Blood Count 14.1H, Red Blood Count 3.37L, Hemoglobin 7.7L, Hematocrit 24.9L, Mean Corpuscular Volume 74#L, Mean Corpuscular Hemoglobin 22.9L, Mean Corpuscular Hemoglobin Concent 31.1L, Red Cell Distribution Width 19.3H, Platelet Count 464H, Mean Platelet Volume 4.3L, Neutrophils (%) (Auto) , Lymphocytes (%) (Auto) , Monocytes (%) (Auto) , Eosinophils (%) (Auto) , Basophils (%) (Auto) , Differential Total Cells Counted 100, Neutrophils % ( Manual) 85H, Lymphocytes % (Manual) 12L, Monocytes % (Manual) 3, Eosinophils % ( Manual) 0, Basophils % (Manual) 0, Band Neutrophils 0, Platelet Estimate Adequate, Platelet Morphology Normal, Polychromasia 1+, Hypochromasia 2+, Anisocytosis 1+, Microcytosis 2+, Schistocytes Rare, Sodium Level 137, Potassium Level 3.9, Chloride Level 103, Carbon Dioxide Level 26, Anion Gap 8, Blood Urea Nitrogen 5L, Creatinine 0.6, Estimat Glomerular Filtration Rate > 60 , Glucose Level 109H, Calcium Level 8.7 01/20/19 08:19: Prothrombin Time 30.0H, Prothromb Time International Ratio 3.0H 01/20/19 08:40: Arterial Blood pH 7.418, Arterial Blood Partial Pressure CO2 39.5, Arterial Blood Partial Pressure O2 83.5, Arterial Blood HCO3 24.9, Arterial Blood Oxygen Saturation 95.5, Arterial Blood Base Excess 0.4, Prakash Test Positive Height (Feet): 5 Height (Inches): 3.00 Weight (Pounds): 125 General Appearance: moderate distress EENT: normal ENT inspection Neck: supple Cardiovascular: tachycardia Respiratory/Chest: decreased breath sounds Abdomen: normal bowel sounds, non tender, soft Extremities: non-tender Alex Stack MD Jan 20, 2019 12:30
--- NOTE | 2019-01-20 13:09 | NUR ---
CASE MANAGEMENT:REVIEW 58YR OLD FEMALE BIBA FROM HOME CC: SOB SI: RESPIRATORY DISTRESS 98.0 108 18 98/55 96% ON 4L/NC H/H-6.2/20.3 INR+9.7 PCO2-28.3 IS: INCREASED TO 10L VIA MASK 1L NS BOLUS NORCO PO IV ZOSYN CT CHEST BLOOD CX 2 UNITS PRBC'S 1 UNIT FFP : TO ICU INTERQUAL CRITERIA MET
--- NOTE | 2019-01-20 13:30 | NUR ---
RESPIRATORY NOTE: Pt is SOB, labored breathing RR> 40 bpm, pt is really anxious and agitated. Coaching pt practiced deep breathing exercise with nice deep breath in the nose and out by the mouth to calm pt down. Pt be able to calm down a little with the exercises but still really anxious. Inform RN Jerri to give pt some medicine for anxious. Family member is at bedside. Will continue to monitor pt closely.
[2019-01-20] MEDS: LORazepam Inj 2mg/ml 1ml IV PRN ×3 (13:47→20:31)
--- NOTE | 2019-01-20 13:51 | NUR ---
NURSE NOTES: Pt anxious and SOB. Ativan ordered for anxiety. Will continue to monitor.
--- NOTE | 2019-01-20 14:21 | NUR ---
NURSE NOTES: Discussed 118-[address] García. Dr García to order troponin level. Will continue to monitor.
--- NOTE | 2019-01-20 16:52 | Cardiology Report ---
APPROVED REPORT EKG Measurement Heart [id number] VT [id number] Normal sinus rhythm Normal ECG
[2019-01-20] MEDS: metroNIDAZOLE 500mg tab ORAL SCH ×2 (17:23→22:00)
--- NOTE | 2019-01-20 17:53 | NUR ---
RESPIRATORY NOTE: Breathing TX given due to SOB, labored breathing RR> 40 BPM, HR 123bpm, saturates 88% on 100% on Bipap. Pt is anxious, distress and agitated. Family at bedside. Inform RN Jerri and asked RN to give her Ativan for anxiety. Coaching deep slow breathing exercise to calm pt down. Awaiting for 's order. Pt still feel the same after TX.
--- NOTE | 2019-01-20 18:13 | NUR ---
NURSE NOTES: Dr Doty here to see pt. ordered airborne precautions to rule out TB based on chest CT and blood tinged sputum. recommended intubation for bloody sputum. Discussed with Dr Dorsey and he said no intubation and instead use a nasal CPAP mask. Pt will transfer to negative pressure room in tele. Will continue to monitor.
--- NOTE | 2019-01-20 18:26 | NUR ---
NURSE NOTES: Spoke with RT regarding nasal cpap mask, RT said they dont have that kind of mask. Pt not coughing any more. Will continue to monitor.
--- NOTE | 2019-01-20 19:15 | NUR ---
RESPIRATORY NOTE: PT. RECEIVED STABLE ON BIPAP WITH CURRENT ORDERS. 15 / 6 RATE OF 16, FIO2 100%. FIO2 TITRATED TO 90% AND PT IS TOLERATING WELL; SPO2 98%-100%. PT. IS CURRENTLY SLEEPING. ALL VS WNL WITH THE EXCEPTING OF RR. PT CONTINUES TO BE TACHYPNEIC WITH A RR OF 27. NO WHEEZING IS PRESENT. RHONCHI DIMINISHED SOUNDS ON LEFT LUNG WHERE HEARD. SPONGE TAPE SECURELY IN PLACE. NO SKIN BREAKDOWN NOTED AT THIS TIME. WILL CONTINUE TO MONITOR.
--- NOTE | 2019-01-20 19:35 | NUR ---
HAND-OFF: Report given to Marisol LEMUS.
--- NOTE | 2019-01-20 19:36 | NUR ---
NURSE NOTES: Endorsement received from MARIAH Guthrie. Patient asleep. On BiPAP 10/05 100%. With right AC g20 and left AC g 20. Ongoing NS 75ml/hr. Head of bed elevated. Call light within reach. On airborne precautions. Bed locked and in low position. Bed alarm on.
[2019-01-20] MEDS ORDERED: Vancomycin 500mg/D5W 110ml IVPB SCH ×2 (20:00)
--- NOTE | 2019-01-20 20:00 | NUR ---
NURSE NOTES: Patient passed urine, pericare done.
--- NOTE | 2019-01-20 20:30 | NUR ---
NURSE NOTES: Patient extremely restless and agitated. Assisted to reposition for comfort, offered reassurance. Interventions ineffective. PRN Ativan given
--- NOTE | 2019-01-20 23:00 | NUR ---
NURSE NOTES: sputum sample collected and sent to the lab for acid fast smear
[2019-01-21] VITALS (20 sets, daily range): BP systolic 92–151; BP diastolic 59–84
--- NOTE | 2019-01-21 00:17 | NUR ---
NURSE NOTES: Received report from MARIAH Damon. Patient was transported to SDU room 237 with 2 RT, 3 RN and . Patient was oxygen 15L/min oxygen mask. . As soon as she got to the room, she started having SOB and sp02 is fluctuating from 70-79%. Patient is on Bipap 15/6 100%, 2 RT at bed side. V/S at 0020 is BP 149/70, T 97.7, HR 131, sp02 76%. Unable to stabilize patient oxygen level with Bipap. STAT ABG was performed by RT and shows hypoxia. Dr Dorsey made aware with order to intubate patient. ER Gamal Cazares Dr arrived at 0115 and patient was intubated at 0115. Patient was then transferred back to ICU at 0130. Report given back to MARIAH Damon. Patient's IV site remains to Right Ac 20g, Running fluid of NS at 75cc/hr.
--- NOTE | 2019-01-21 00:17 | NUR ---
TRANSFER TO FLOOR: Patient transferred to [facility], per hospital bed. Report given to MARIAH Alcazar. Belongings and medications given to the RN. at bedside.
[2019-01-21] MEDS ORDERED: Albuterol 90mcg Inhaler 8gm INH PRN ×2 (00:30→01:46)
[2019-01-21] MEDS ORDERED: Morphine Sulfate 2mg/ml Inj(IV/IM USE ONLY) IVP PRN ×2 (00:30→04:47)
--- NOTE | 2019-01-21 01:20 | NUR ---
RESPIRATORY NOTE: PT. WAS TRANSFERRED FROM ICU TO [facility]. ON NRB MASK AT 100% FIO2. SHE WAS QUICKLY PLACED ON BIPAP/ SOON PT WAS PLACED IN ROOM SHE BEGAN HAVING AN ACUTE EPISODE OF SOB THAT WAS UNABLE TO BE STABILIZED ALTHOUGH SHE WAS ON BIPAP AT HER CURRENT SETTINGS. PT HAD INCREASED HR AND RR. PT. ALSO SHOWED DESATURATION THAT DIDN'T IMPROVE AFTER BEING ON BIPAP FOR SEVERAL MINUTES. ABG WAS DRAWN STAT AND IT DISPLAYED HYPOXIA. PT. WAS SUCCESSFULLY INTUBATED BY DR. CASE WITH AN ETT SIZE 6.0. PT. WAS TRANSFERRED BACK TO ICU. AND WAS PLACED ON MECHANICAL VENTILATION WITH THE FOLLOWING SETTINGS: AC, 16, 500, 100%, +5. ALARMS WERE ADJUSTED AND ARE ON AND AUDIBLE. PT. HAS BILATERAL SOFT WRIST RESTRAINS AND IS CURRENTLY UNDER SEDATION. ABG TO FOLLOW IN ONE HOUR. WILL CONTINUE TO MONITOR.
--- NOTE | 2019-01-21 01:29 | Emergency Room Report ---
History of Present Illness General Chief Complaint: Dyspnea/Respdistress Source: Patient Present Illness Allergies: Coded Allergies: No Known Allergies (Unverified , 01/19/19) Patient History Now: No Nursing Documentation-[facility] Past Medical History: No History, Except For Hx Hypertension: Yes Hx Asthma: Yes Hx COPD: Yes Hx Cancer: No Hx Gastrointestinal Problems: No Hx Neurological Problems: No Physical Exam Vital Signs Date Time Temp Pulse Resp B/P (MAP) Pulse Ox O2 Delivery O2 Flow Rate FiO2 01/19/19 09:03 108 18 100/45 96 Nasal Cannula 4.0 01/19/19 09:16 98.0 01/19/19 17:57 40 Procedures Intubation Intubation : Consent: Emergent Time of Intubation: 01:29 Intubation Method: orotracheal Tube Size (cm): 6.0 Medications: Etomidate, Succinylcholine Breath Sounds after Intubation: equal Intubation Complications: no complications Post Intubation Xray: Yes Attempts: One Patient Tolerated: Well Medical Decision Making Diagnostic Impression: Primary Impression: Dyspnea Additional Impression: Respiratory distress Last Vital Signs Date Time Temp Pulse Resp B/P (MAP) Pulse Ox O2 Delivery O2 Flow Rate FiO2 01/21/19 00:00 97.7 120 34 115/79 (91) 93 01/21/19 00:00 Bi-pap Bi-pap Bi-pap 01/20/19 23:12 100 01/20/19 00:52 3.0 Disposition: SHORT-TERM HOSP Condition: Serious Referrals: NON PHYSICIAN (PCP) Gamal Toledo MD Jan 21, 2019 01:29
--- NOTE | 2019-01-21 01:30 | NUR ---
NURSE NOTES: Patient back to ICU. Orally intubated with ET 6.0, 24 on the lower lipline. Vent settings AC 16, Vt 500, PEEP 5, 100% FiO2. Patient drowsy. at bedside. Updated of the patient's current status. OGT inserted, placement checked per auscultation verified by another RN. Awaiting for chest xray and KUB to confirm ET and OGT placement. Applied external female catheter. G 18 heplock inserted at right wrist.
[2019-01-21] MEDS ORDERED: LORazepam Inj 2mg/ml 1ml IV PRN ×2 (01:45→04:51)
[2019-01-21] MEDS: Albuterol ud Inhalation HHN SCH ×6 (02:40→23:00)
--- NOTE | 2019-01-21 02:52 | NUR ---
NURSE NOTES: lead quality technician at bedside for Xray. Followed up respiratory therapist regarding ABG post intubation.
[2019-01-21] MEDS ORDERED: Albuterol ud Inhalation HHN SCH (03:00)
--- NOTE | 2019-01-21 03:32 | NUR ---
NURSE NOTES: Called Dr. Dorsey and relayed ABG results 1 hour post intubation and current ventilator settings. No new order given at this time
--- NOTE | 2019-01-21 04:45 | NUR ---
NURSE NOTES: Chest xray shows ET in adequate position. KUB result OGT in proper place. Sputum sample collected and sent to the lab for smear sample. Patient bucking the vent. PRN ativan given
[2019-01-21] MEDS: metroNIDAZOLE 500mg tab ORAL SCH ×3 (05:12→22:16)
--- NOTE | 2019-01-21 05:17 | NUR ---
RESPIRATORY NOTE: PT. STABLE ON CMV WITH CURRENT SETTINGS. SXN PRN WITH NO ADVERSE REACTION. WILL CONTINUE WITH CURRENT SETTINGS PER DR. SHARP ORDER POST ABG RESULTS. VENT CIRCUIT SECURE AND OUT OF THE WAY. PT CONTINUES TO BE TACHYPNEIC ON VENTILATOR BUT ALL OTHER VS ARE WNL.
[2019-01-21] MEDS ORDERED: metroNIDAZOLE 500mg tab ORAL SCH (06:00)
--- NOTE | 2019-01-21 07:00 | NUR ---
Received Patient on Vent settings of ACVC RR 16, VT 500, Fio2 100%, PEEP +5. Patient intubated with a 6.0 ETT at 22 cm at the lip, secured with anchorfast. Bilateral rhonchi heard upon auscultation. Suction thick bloody secretions as needed. Patient currently extremely restless. Alarms on and audible. Vent plugged into red outlet. Ambu Bag at beside. Will continue to monitor throughout the day.
[2019-01-21 07:10] LABS: ALANINE AMINOTRANSFERASE 26 U/L (12-78); ALBUMIN 2.2 G/DL (3.4-5.0); ALBUMIN/GLOBULIN RATIO 0.5 (1.0-2.7); ALKALINE PHOSPHATASE 92 U/L (46-116); ANION GAP 8 mmol/L (5-15); ASPARTATE AMINO TRANSFERASE 19 U/L (15-37); BILIRUBIN,TOTAL 0.3 MG/DL (0.2-1.0); BLOOD UREA NITROGEN 9 mg/dL (7-18); CALCIUM 8.8 MG/DL (8.5-10.1); CARBON DIOXIDE 26 MMOL/L (21-32); CHLORIDE 103 MMOL/L (98-107); CREATININE 0.6 MG/DL (0.55-1.30); POTASSIUM 3.8 MMOL/L (3.5-5.1); SODIUM 137 MMOL/L (136-145)
[2019-01-21 07:19] LABS: HEMATOCRIT 24.7 % (37.0-47.0); HEMOGLOBIN 7.8 G/DL (12.0-16.0); MEAN CORPUSCULAR VOLUME 74 FL (80-99); PLATELET COUNT 458 K/UL (150-450); RED BLOOD COUNT 3.35 M/UL (4.20-5.40)
[2019-01-21 07:32] LABS: % IRON SATURATION 3 % (15-50); IRON 7 ug/dL (50-175); TOTAL IRON BINDING CAPACITY 279 ug/dL (250-450)
--- NOTE | 2019-01-21 07:32 | NUR ---
HAND-OFF: Report given to MARIAH Velasquez.
[2019-01-21] MEDS ORDERED: Vancomycin 500 MG in D5W 110 ML IVPB SCH (08:00)
[2019-01-21] MEDS: Vancomycin 500 MG in D5W 110 ML IVPB SCH ×2 (08:00→20:11)
--- NOTE | 2019-01-21 08:00 | NUR ---
NURSE NOTES: Received pt from MARIAH Damon. Orally intubated with ET 6.0, 24 on the lower lipline. Vent settings AC 16, Vt 500, PEEP 5, 100% FiO2. Patient drowsy. at bedside. Updated of the patient's current status. OGT on place. External female catheter applied. G 18 heplock inserted at right wrist and left forearm luis 22 IV dry and intact. Safety measures in place. will continue to monitor.
[2019-01-21] MEDS: cefTRIAXone 1 GM in D5W 55 ML IVPB SCH (08:56)
[2019-01-21] MEDS ORDERED: cefTRIAXone 1 GM in D5W 55 ML IVPB SCH (09:30)
--- NOTE | 2019-01-21 10:00 | NUR ---
NURSE NOTES: Pt resting in bed, same vent settings. family at bedside. will continue to monitor.
--- NOTE | 2019-01-21 10:02 | Pulmonology Progress Note ---
Assessment/Plan Assessment/Plan 1. Substance abuse. 2. Hypoxemia. 3. Shortness of breath. 4. Coumadin toxicity. 5. Anemia. 6. Respiratory Failure DISCUSSION: Admitted to the ICU. Continue pulmonary hygiene, supportive care. The patient will be continued on albuterol, Atrovent, IV Rocephin, IV fluids, pain control, and antiemetics. DVT and GI prophylaxis and IV fluids. I will follow carefully. Will maintain AC mode; FiO2 100% Increased morphine and Ativan dose Yuri Dorsey M.D. Subjective Interval Events: Intubated overnight for refraactory hypoxemia Constitutional: Reports: no symptoms HEENT: Repors: no symptoms Respiratory: Reports: no symptoms Cardiovascular: Reports: no symptoms Gastrointestinal/Abdominal: Reports: no symptoms Genitourinary: Reports: no symptoms Neurologic: Reports: no symptoms Allergies: Coded Allergies: No Known Allergies (Unverified , 01/19/19) Objective Last 24 Hour Vital Signs Date Time Temp Pulse Resp B/P (MAP) Pulse Ox O2 Delivery O2 Flow Rate FiO2 01/21/19 08:48 125 45 100 01/21/19 06:47 Mechanical Ventilator 100 01/21/19 06:47 Mechanical Ventilator 01/21/19 06:46 133 44 100 01/21/19 05:17 126 26 100 01/21/19 05:00 124 18 116/64 (81) 100 01/21/19 04:50 98 27 Mechanical Ventilator 100 01/21/19 04:00 Mechanical Ventilator Mechanical Ventilator Mechanical Ventilator 01/21/19 04:00 100 01/21/19 04:00 97.4 125 17 106/67 (80) 100 01/21/19 04:00 120 01/21/19 03:00 129 17 103/84 (90) 100 01/21/19 02:40 131 16 98 Mechanical Ventilator 100 01/21/19 02:30 135 27 100 01/21/19 02:30 135 27 100 Mechanical Ventilator 100 01/21/19 02:00 136 29 96/65 (75) 93 01/21/19 01:30 132 27 151/64 (93) 88 01/21/19 01:30 100 01/21/19 01:30 130 27 100 01/21/19 00:00 97.7 120 34 115/79 (91) 93 01/21/19 00:00 Bi-pap Bi-pap Bi-pap 01/20/19 23:12 125 47 92 Bi-pap 100 01/20/19 23:00 118 34 114/64 (81) 90 01/20/19 23:00 118 39 92 Facial 100 01/20/19 23:00 118 39 100 Bi-pap 100 01/20/19 22:00 113 34 131/74 (93) 94 01/20/19 21:00 119 34 113/73 (86) 94 01/20/19 20:50 97.5 01/20/19 20:32 119 33 95 Facial 100 01/20/19 20:00 Bi-pap Bi-pap Bi-pap 01/20/19 20:00 80 01/20/19 20:00 123 01/20/19 20:00 121 31 160/91 (114) 96 01/20/19 19:57 111 27 100 Bi-pap 90 01/20/19 19:15 Bi-pap 90 01/20/19 19:15 111 27 100 Facial 90 01/20/19 19:00 121 31 117/64 (81) 96 01/20/19 18:00 117 35 131/88 (102) 95 01/20/19 17:52 124 40 91 Bi-pap 100 01/20/19 17:42 127 40 88 Bi-pap 100 01/20/19 17:30 123 42 88 Facial 100 01/20/19 17:00 119 35 114/59 (77) 97 01/20/19 16:00 97.5 126 39 146/84 (104) 91 01/20/19 16:00 Bi-pap Bi-pap Bi-pap 01/20/19 16:00 114 01/20/19 16:00 80 01/20/19 15:25 Bi-pap 01/20/19 15:25 Bi-pap 01/20/19 15:25 113 30 100 Facial 70 01/20/19 15:00 114 30 129/64 (85) 01/20/19 14:00 116 35 138/78 (98) 91 01/20/19 13:15 123 39 100 Facial 70 01/20/19 13:00 115 35 175/79 (111) 100 01/20/19 12:00 Bi-pap Bi-pap Bi-pap 01/20/19 12:00 80 01/20/19 12:00 114 01/20/19 12:00 97.8 106 37 139/72 (94) 98 01/20/19 11:15 98 33 100 Facial 70 01/20/19 11:15 98 33 100 Bi-pap 70 01/20/19 11:05 101 35 100 Bi-pap 70 01/20/19 11:00 101 35 132/73 (92) 99 Intake and Output 01/20/19 01/21/19 19:00 07:00 Intake Total 775 ml 635 ml Balance 775 ml 635 ml Intake Oral 100 ml IV Total 675 ml 635 ml # Voids 5 2 General Appearance: no acute distress HEENT: normocephalic Respiratory/Chest: chest wall non-tender, lungs clear Cardiovascular: normal peripheral pulses, normal rate Abdomen: normal bowel sounds Microbiology Date/Time Source Procedure Growth Status 01/19/19 10:30 Blood Blood Culture - Preliminary NO GROWTH AFTER 24 HOURS Resulted 01/19/19 10:20 Blood Blood Culture - Preliminary NO GROWTH AFTER 24 HOURS Resulted 01/19/19 14:00 Nasal Nares MRSA Culture - Final NO METHICILLIN RESISTANT STAPH AUREUS... Complete 01/19/19 11:22 Urine,Clean Catch Urine Culture - Preliminary Mixed Gram Positive Organism Resulted 01/19/19 14:00 Rectum VRE Culture - Final Enterococcus Faecium - Vre Complete 01/19/19 14:00 Rectum - Final NO CARBAPENEM-RESISTANT ENTEROBACTERI... Complete Laboratory Tests 01/21/19 00:43: Arterial Blood pH 7.323L, Arterial Blood Partial Pressure CO2 52.3H, Arterial Blood Partial Pressure O2 40.7*L, Arterial Blood HCO3 26.5H, Arterial Blood Oxygen Saturation 71.6*L, Arterial Blood Base Excess 0, Prakash Test Positive 01/21/19 03:06: Arterial Blood pH 7.380, Arterial Blood Partial Pressure CO2 42.6, Arterial Blood Partial Pressure O2 80.1, Arterial Blood HCO3 24.6, Arterial Blood Oxygen Saturation 95.0, Arterial Blood Base Excess -0.5, Prakash Test Positive 01/21/19 06:00: White Blood Count 20.0H, Red Blood Count 3.35L, Hemoglobin 7.8L, Hematocrit 24.7L, Mean Corpuscular Volume 74L, Mean Corpuscular Hemoglobin 23.2L, Mean Corpuscular Hemoglobin Concent 31.5L, Red Cell Distribution Width 19.0H, Platelet Count 458H, Mean Platelet Volume 4.7L, Neutrophils (%) (Auto) , Lymphocytes (%) (Auto) , Monocytes (%) (Auto) , Eosinophils (%) (Auto) , Basophils (%) (Auto) , Neutrophils % (Manual) [Pending], Lymphocytes % (Manual) [Pending], Platelet Estimate [Pending], Platelet Morphology [Pending], Sodium Level 137, Potassium Level 3.8, Chloride Level 103, Carbon Dioxide Level 26, Anion Gap 8, Blood Urea Nitrogen 9, Creatinine 0.6, Estimat Glomerular Filtration Rate > 60, Glucose Level 137H, Calcium Level 8.8, Iron Level 7L, Total Iron Binding Capacity 279, Percent Iron Saturation 3L, Unsaturated Iron Binding 272, Total Bilirubin 0.3, Aspartate Amino Transf (AST/SGOT) 19, Alanine Aminotransferase (ALT/SGPT) 26, Alkaline Phosphatase 92, Troponin I 0.000, Total Protein 6.5, Albumin 2.2L, Globulin 4.3, Albumin/Globulin Ratio 0.5L, Carcinoembryonic Antigen [Pending], Vitamin B12 Level 1254H, Folate 16.7, Coccidioides Antibody (Comp Fix) [Pending], Cryptococcus Antigen [Pending], Hepatitis A IgM Antibody [Pending], Hepatitis B Surface Antigen [Pending], Hepatitis B Core IgM Antibody [Pending], Hepatitis C Antibody [Pending], Histoplasma Mycelial Antibody [Pending], Histoplasma Antibody w Mycelial Ag [ Pending], Histoplasma Antibody with Yeast Ag [Pending], HIV (1&2) Antibody Rapid Negative, TB Test (T-Spot) [Pending], TB Test Nil Control (T-Spot) [ Pending], TB Test Panel A (T-Spot) [Pending], TB Test Panel B (T-Spot) [Pending] , TB Test Positive Control (T-Spot) [Pending] Current Medications Medications (Trade) Dose Ordered Sig/Roxanne Route PRN Reason Start Time Stop Time Status Last Admin Dose Admin Acetaminophen (Tylenol) 650 mg Q4H PRN ORAL Mild Pain (Pain Scale 1-3) 01/21/19 01:45 02/18/19 01:44 Albuterol Sulfate (Proventil MDI) 2 puff Q4H PRN INH Shortness of Breath 01/21/19 01:46 02/18/19 01:45 Albuterol Sulfate (Proventil) 2.5 mg Q4HRT HHN 01/21/19 03:00 01/25/19 02:59 01/21/19 02:40 Ceftriaxone Sodium 1 gm/ Dextrose 55 ml @ 110 mls/hr Q24H IVPB 01/21/19 09:30 01/27/19 09:29 01/21/19 08:56 Dextrose (Dextrose 50%) 25 ml Q30M PRN IV Hypoglycemia 01/21/19 02:00 02/18/19 20:29 Dextrose (Dextrose 50%) 50 ml Q30M PRN IV Hypoglycemia 01/21/19 02:00 02/18/19 20:29 Diphenhydramine HCl (Benadryl) 25 mg Q6H PRN ORAL Itching/Pruritis 01/21/19 01:48 02/18/19 01:47 Lorazepam (Ativan 2mg/ml 1ml) 0.5 mg Q4H PRN IV For Anxiety 01/21/19 04:51 01/27/19 04:50 01/21/19 05:11 Metronidazole (Flagyl) 500 mg Q8HR ORAL 01/21/19 06:00 01/27/19 17:22 01/21/19 05:12 Morphine Sulfate (Morphine Sulfate) 0.5 mg Q4H PRN IVP Moderate Pain (Pain Scale 4-6) 01/21/19 04:47 01/26/19 04:46 Ondansetron HCl (Zofran) 4 mg Q6H PRN IVP Nausea & Vomiting 01/21/19 01:49 02/18/19 01:48 Pantoprazole (Protonix) 40 mg DAILY ORAL 01/21/19 09:00 02/18/19 20:59 01/21/19 08:56 Sodium Chloride 1,000 ml @ 75 mls/hr [id number] IV 01/21/19 02:00 02/18/19 01:59 01/21/19 02:00 Vancomycin HCl (Vanco rx to dose) 1 ea DAILY PRN MISC Per rx protocol 01/21/19 09:00 02/19/19 17:14 Vancomycin HCl 500 mg/Dextrose 110 ml @ 110 mls/hr Q12H IVPB 01/21/19 08:00 01/25/19 19:59 01/21/19 08:00 Yuri Dorsey MD Jan 21, 2019 10:02
--- NOTE | 2019-01-21 10:38 | Nephrology Progress Note ---
Assessment/Plan Assessment/Plan A/P 1) Coumadin toxicity- last INR 9.7 - AM INR pending today. Last INR 3 - s/p FFP and blood transfusion 2) Anemia- Hgb 7.8 post blood tx. - appreciate GI assistance 3) Resp FL- intubated on vent 4) Polysubstance Abuse- PCP and cocaine 5) UTI- Rocephin 6) ?? 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 ID to manage Abx 7) DVT prophylaxsis- elevated INR, just monitor 8) H/O PE- coumadin on hold Subjective Date patient seen: Jan 21, 2019 Time patient seen: 10:34 ROS Limited/Unobtainable: Yes Allergies: Coded Allergies: No Known Allergies (Unverified , 01/19/19) Subjective Patient intubated on mechanical ventilation Objective Last 24 Hour Vital Signs Date Time Temp Pulse Resp B/P (MAP) Pulse Ox O2 Delivery O2 Flow Rate FiO2 01/21/19 10:32 Mechanical Ventilator 100 01/21/19 10:32 127 35 100 01/21/19 10:32 Mechanical Ventilator 100 01/21/19 08:48 125 45 100 01/21/19 06:47 Mechanical Ventilator 100 01/21/19 06:47 Mechanical Ventilator 100 01/21/19 06:46 133 44 100 01/21/19 05:17 126 26 100 01/21/19 05:00 124 18 116/64 (81) 100 01/21/19 04:50 98 27 Mechanical Ventilator 100 01/21/19 04:00 Mechanical Ventilator Mechanical Ventilator Mechanical Ventilator 01/21/19 04:00 100 01/21/19 04:00 97.4 125 17 106/67 (80) 100 01/21/19 04:00 120 01/21/19 03:00 129 17 103/84 (90) 100 01/21/19 02:40 131 16 98 Mechanical Ventilator 100 01/21/19 02:30 135 27 100 01/21/19 02:30 135 27 100 Mechanical Ventilator 100 01/21/19 02:00 136 29 96/65 (75) 93 01/21/19 01:30 132 27 151/64 (93) 88 01/21/19 01:30 100 01/21/19 01:30 130 27 100 01/21/19 00:00 97.7 120 34 115/79 (91) 93 01/21/19 00:00 Bi-pap Bi-pap Bi-pap 01/20/19 23:12 125 47 92 Bi-pap 100 01/20/19 23:00 118 34 114/64 (81) 90 01/20/19 23:00 118 39 92 Facial 100 01/20/19 23:00 118 39 100 Bi-pap 100 01/20/19 22:00 113 34 131/74 (93) 94 01/20/19 21:00 119 34 113/73 (86) 94 01/20/19 20:50 97.5 01/20/19 20:32 119 33 95 Facial 100 01/20/19 20:00 Bi-pap Bi-pap Bi-pap 01/20/19 20:00 80 01/20/19 20:00 123 01/20/19 20:00 121 31 160/91 (114) 96 01/20/19 19:57 111 27 100 Bi-pap 90 01/20/19 19:15 Bi-pap 90 01/20/19 19:15 111 27 100 Facial 90 01/20/19 19:00 121 31 117/64 (81) 96 01/20/19 18:00 117 35 131/88 (102) 95 01/20/19 17:52 124 40 91 Bi-pap 100 01/20/19 17:42 127 40 88 Bi-pap 100 01/20/19 17:30 123 42 88 Facial 100 01/20/19 17:00 119 35 114/59 (77) 97 01/20/19 16:00 97.5 126 39 146/84 (104) 91 01/20/19 16:00 Bi-pap Bi-pap Bi-pap 01/20/19 16:00 114 01/20/19 16:00 80 01/20/19 15:25 Bi-pap 01/20/19 15:25 Bi-pap 01/20/19 15:25 113 30 100 Facial 70 01/20/19 15:00 114 30 129/64 (85) 01/20/19 14:00 116 35 138/78 (98) 91 01/20/19 13:15 123 39 100 Facial 70 01/20/19 13:00 115 35 175/79 (111) 100 01/20/19 12:00 Bi-pap Bi-pap Bi-pap 01/20/19 12:00 80 01/20/19 12:00 114 01/20/19 12:00 97.8 106 37 139/72 (94) 98 01/20/19 11:15 98 33 100 Facial 70 01/20/19 11:15 98 33 100 Bi-pap 70 01/20/19 11:05 101 35 100 Bi-pap 70 01/20/19 11:00 101 35 132/73 (92) 99 Intake and Output 01/20/19 01/21/19 19:00 07:00 Intake Total 775 ml 635 ml Balance 775 ml 635 ml Intake Oral 100 ml IV Total 675 ml 635 ml # Voids 5 2 Laboratory Tests 01/21/19 00:43: Arterial Blood pH 7.323L, Arterial Blood Partial Pressure CO2 52.3H, Arterial Blood Partial Pressure O2 40.7*L, Arterial Blood HCO3 26.5H, Arterial Blood Oxygen Saturation 71.6*L, Arterial Blood Base Excess 0, Prakash Test Positive 01/21/19 03:06: Arterial Blood pH 7.380, Arterial Blood Partial Pressure CO2 42.6, Arterial Blood Partial Pressure O2 80.1, Arterial Blood HCO3 24.6, Arterial Blood Oxygen Saturation 95.0, Arterial Blood Base Excess -0.5, Prakash Test Positive 01/21/19 06:00: White Blood Count 20.0H, Red Blood Count 3.35L, Hemoglobin 7.8L, Hematocrit 24.7L, Mean Corpuscular Volume 74L, Mean Corpuscular Hemoglobin 23.2L, Mean Corpuscular Hemoglobin Concent 31.5L, Red Cell Distribution Width 19.0H, Platelet Count 458H, Mean Platelet Volume 4.7L, Neutrophils (%) (Auto) , Lymphocytes (%) (Auto) , Monocytes (%) (Auto) , Eosinophils (%) (Auto) , Basophils (%) (Auto) , Neutrophils % (Manual) [Pending], Lymphocytes % (Manual) [Pending], Platelet Estimate [Pending], Platelet Morphology [Pending], Sodium Level 137, Potassium Level 3.8, Chloride Level 103, Carbon Dioxide Level 26, Anion Gap 8, Blood Urea Nitrogen 9, Creatinine 0.6, Estimat Glomerular Filtration Rate > 60, Glucose Level 137H, Calcium Level 8.8, Iron Level 7L, Total Iron Binding Capacity 279, Percent Iron Saturation 3L, Unsaturated Iron Binding 272, Total Bilirubin 0.3, Aspartate Amino Transf (AST/SGOT) 19, Alanine Aminotransferase (ALT/SGPT) 26, Alkaline Phosphatase 92, Troponin I 0.000, Total Protein 6.5, Albumin 2.2L, Globulin 4.3, Albumin/Globulin Ratio 0.5L, Carcinoembryonic Antigen [Pending], Vitamin B12 Level 1254H, Folate 16.7, Coccidioides Antibody (Comp Fix) [Pending], Cryptococcus Antigen [Pending], Hepatitis A IgM Antibody [Pending], Hepatitis B Surface Antigen [Pending], Hepatitis B Core IgM Antibody [Pending], Hepatitis C Antibody [Pending], Histoplasma Mycelial Antibody [Pending], Histoplasma Antibody w Mycelial Ag [ Pending], Histoplasma Antibody with Yeast Ag [Pending], HIV (1&2) Antibody Rapid Negative, TB Test (T-Spot) [Pending], TB Test Nil Control (T-Spot) [ Pending], TB Test Panel A (T-Spot) [Pending], TB Test Panel B (T-Spot) [Pending] , TB Test Positive Control (T-Spot) [Pending] Height (Feet): 5 Height (Inches): 3.00 Weight (Pounds): 125 General Appearance: no apparent distress EENT: normal ENT inspection Neck: normal alignment, supple Cardiovascular: normal rate, regular rhythm Respiratory/Chest: respiratory distress, rhonchi - bilaterally Abdomen: non tender, soft Edema: no edema noted Arm (L), no edema noted Arm (R), no edema noted Leg (L), no edema noted Leg (R), no edema noted Pedal (L), no edema noted Pedal (R), no edema noted Generalized Jim Pinto MD Jan 21, 2019 10:38
--- NOTE | 2019-01-21 10:39 | NUR ---
RD ASSESSMENT & RECOMMENDATIONS SEE CARE ACTIVITY FOR COMPLETE ASSESSMENT DAILY ESTIMATED NEEDS: Needs based on Critical care, 51kg 25-30 kcals/kg [id number] total kcals 1.2-2 g protein/kg 61-102 g total protein 25-30 mL/kg 275-1530 total fluid mLs NUTRITION DIAGNOSIS: Swallowing difficulty r/t respiratory status as evidenced by s/p intubation, pt w/ OGT, pending feeds. CURRENT TF: Vital 1.2 @60ml/hr, not running at this time ENTERAL NUTRITION RECOMMENDATIONS: REC TF CHANGE->> Osmolite 1.2 @ 50ml/hr x24 hrs to provide 1200ml, 1440 kcal, 67g prot, 984ml free H2O - W/ GI access and clinical stability, rec to start Osmolite 1.2 @20ml/hr x6 hrs - Advance as tolerated to goal 10ml/hr q4-6 hrs - HOB over 30 degrees, Flush per MD ADDITIONAL RECOMMENDATIONS: 1) Recalibrate bed scale as able EMR wt: 125# vs Bedscale wt: 112# 2) OGT feed recs as above 3) Monitor BG, lytes and tolerance to TF, need for alternative 4) Feed w/ hemodynamic stability
--- NOTE | 2019-01-21 10:45 | Diagnostic Imaging Report ---
Indication: Post gastric tube placement Technique: Supine view of the upper abdomen Comparison: None Findings: Nasogastric tube in place, tip projecting at the level of the gastric antrum, proximal port just beyond the gastroesophageal junction. The visualized bowel gas is unremarkable. Extensive interstitial and airspace disease and honeycombing of the left lung base noted. Apparent right lung pneumonectomy cavity noted Impression: Satisfactory orogastric intubation This agrees with the preliminary interpretation provided overnight by [facility] teleradiology service.
--- NOTE | 2019-01-21 11:06 | Infectious Diseases Prog Note ---
Assessment/Plan Assessment/Plan Abx: Zosyn x1 01/19 Ceftriaxone 01/20- Assessment: Hemoptysis Cavitary PNA- r/o TB MRSA, vs aspiration pneumonia -CT chest: Irregular pleural thickening throught R hemithorax. Small amount of fluid and otherwise large amount of gas filling the R chest cavity. Severe centrilobular emphysematous changes throughout the left lung. Patchy consolidation with multiple areas of cavitation. Additional nodular densities and reticulonodular densities throught the left lung. Findings are compatible with an infectious/inflammatory process. -NEg: HIV screen Supratherapeutic INR Acute respiratory failure s/p intubation 01/21 Afebrile Leukocytosis, increased -u/a wbc 20-30, nit neg, leuk +3; ucx 40-50K mixed gram positive growth HTN asthma/COPD PE on Coumadin substance abuse -UDS+ cocaine, PCP Plan: -Continue empiric Ceftriaxone, Flagyl and IV Vancomycin #2 for anaerobic and MRSA coverage, respectively -01/19 SP ZOsyn x1 -Airborne precautions -f/u AFB sp cx x3, MTB pCR x1 -f/u cx -Monitor CBC/CMP, temperatures -f/u CT chest report -f/u sp cx (bacterial and fungal) -ICU/ETT care -Aspiration precautions -f/u Cocci ab, CrAg, Histoplasmas ab and ag, legionella ag urine, Asp ag, fungitell, TB spot Thank you for this consultation. Will continue to follow along with you. Discussed with RN. Subjective Allergies: Coded Allergies: No Known Allergies (Unverified , 01/19/19) Subjective afebrile intubated last night wbc increased Objective Vital Signs Last 24 Hour Vital Signs Date Time Temp Pulse Resp B/P (MAP) Pulse Ox O2 Delivery O2 Flow Rate FiO2 01/21/19 10:32 Mechanical Ventilator 100 01/21/19 10:32 127 35 100 01/21/19 10:32 Mechanical Ventilator 100 01/21/19 10:00 124 18 113/65 (81) 100 01/21/19 09:00 121 18 110/64 (79) 100 01/21/19 08:48 125 45 100 01/21/19 08:00 97.4 125 17 106/67 (80) 100 01/21/19 08:00 121 01/21/19 08:00 Mechanical Ventilator Mechanical Ventilator Mechanical Ventilator 01/21/19 08:00 100 01/21/19 06:47 Mechanical Ventilator 100 01/21/19 06:47 Mechanical Ventilator 100 01/21/19 06:46 133 44 100 01/21/19 05:17 126 26 100 01/21/19 05:00 124 18 116/64 (81) 100 01/21/19 04:50 98 27 Mechanical Ventilator 100 01/21/19 04:00 Mechanical Ventilator Mechanical Ventilator Mechanical Ventilator 01/21/19 04:00 100 01/21/19 04:00 97.4 125 17 106/67 (80) 100 01/21/19 04:00 120 01/21/19 03:00 129 17 103/84 (90) 100 01/21/19 02:40 131 16 98 Mechanical Ventilator 100 01/21/19 02:30 135 27 100 01/21/19 02:30 135 27 100 Mechanical Ventilator 100 01/21/19 02:00 136 29 96/65 (75) 93 01/21/19 01:30 132 27 151/64 (93) 88 01/21/19 01:30 100 01/21/19 01:30 130 27 100 01/21/19 00:00 97.7 120 34 115/79 (91) 93 01/21/19 00:00 Bi-pap Bi-pap Bi-pap 01/20/19 23:12 125 47 92 Bi-pap 100 01/20/19 23:00 118 34 114/64 (81) 90 01/20/19 23:00 118 39 92 Facial 100 01/20/19 23:00 118 39 100 Bi-pap 100 01/20/19 22:00 113 34 131/74 (93) 94 01/20/19 21:00 119 34 113/73 (86) 94 01/20/19 20:50 97.5 01/20/19 20:32 119 33 95 Facial 100 01/20/19 20:00 Bi-pap Bi-pap Bi-pap 01/20/19 20:00 80 01/20/19 20:00 123 01/20/19 20:00 121 31 160/91 (114) 96 01/20/19 19:57 111 27 100 Bi-pap 90 01/20/19 19:15 Bi-pap 90 01/20/19 19:15 111 27 100 Facial 90 01/20/19 19:00 121 31 117/64 (81) 96 01/20/19 18:00 117 35 131/88 (102) 95 01/20/19 17:52 124 40 91 Bi-pap 100 01/20/19 17:42 127 40 88 Bi-pap 100 01/20/19 17:30 123 42 88 Facial 100 01/20/19 17:00 119 35 114/59 (77) 97 01/20/19 16:00 97.5 126 39 146/84 (104) 91 01/20/19 16:00 Bi-pap Bi-pap Bi-pap 01/20/19 16:00 114 01/20/19 16:00 80 01/20/19 15:25 Bi-pap 01/20/19 15:25 Bi-pap 01/20/19 15:25 113 30 100 Facial 70 01/20/19 15:00 114 30 129/64 (85) 01/20/19 14:00 116 35 138/78 (98) 91 01/20/19 13:15 123 39 100 Facial 70 01/20/19 13:00 115 35 175/79 (111) 100 01/20/19 12:00 Bi-pap Bi-pap Bi-pap 01/20/19 12:00 80 01/20/19 12:00 114 01/20/19 12:00 97.8 106 37 139/72 (94) 98 01/20/19 11:15 98 33 100 Facial 70 01/20/19 11:15 98 33 100 Bi-pap 70 01/20/19 11:05 101 35 100 Bi-pap 70 Height (Feet): 5 Height (Inches): 3.00 Weight (Pounds): 125 Objective GENERAL: The patient is awake, in mild respiratory distress. HEENT: Extraocular muscles intact. No lymphadenopathy. intubated ETT CARDIOVASCULAR: S1 and S2. No rubs or gallops. No S3, no S4. PULMONARY: Mild upper airway wheezing with fair air movement in both lung mazariegos. ABDOMEN: Nondistended and nontender. EXTREMITIES: No edema. Microbiology Date/Time Source Procedure Growth Status 01/19/19 10:30 Blood Blood Culture - Preliminary NO GROWTH AFTER 24 HOURS Resulted 01/19/19 10:20 Blood Blood Culture - Preliminary NO GROWTH AFTER 24 HOURS Resulted 01/19/19 14:00 Nasal Nares MRSA Culture - Final NO METHICILLIN RESISTANT STAPH AUREUS... Complete 01/19/19 11:22 Urine,Clean Catch Urine Culture - Preliminary Mixed Gram Positive Organism Resulted 01/19/19 14:00 Rectum VRE Culture - Final Enterococcus Faecium - Vre Complete 01/19/19 14:00 Rectum - Final NO CARBAPENEM-RESISTANT ENTEROBACTERI... Complete Laboratory Tests Test 01/21/19 00:43 01/21/19 03:06 01/21/19 06:00 Arterial Blood pH 7.323 (7.350-7.450) 7.380 (7.350-7.450) Arterial Blood Partial Pressure CO2 52.3 mmHg (35.0-45.0) H 42.6 mmHg (35.0-45.0) Arterial Blood Partial Pressure O2 40.7 mmHg (75.0-100.0) 80.1 mmHg (75.0-100.0) Arterial Blood HCO3 26.5 mmol/L (22.0-26.0) H 24.6 mmol/L (22.0-26.0) Arterial Blood Oxygen Saturation 71.6 % (95-100) *L 95.0 % (95-100) Arterial Blood Base Excess 0 (-2-2) -0.5 (-2-2) Prakash Test Positive Positive White Blood Count 20.0 K/UL (4.8-10.8) H Red Blood Count 3.35 M/UL (4.20-5.40) L Hemoglobin 7.8 G/DL (12.0-16.0) L Hematocrit 24.7 % (37.0-47.0) L Mean Corpuscular Volume 74 FL (80-99) L Mean Corpuscular Hemoglobin 23.2 PG (27.0-31.0) L Mean Corpuscular Hemoglobin Concent 31.5 G/DL (32.0-36.0) L Red Cell Distribution Width 19.0 % (11.6-14.8) H Platelet Count 458 K/UL (150-450) H Mean Platelet Volume 4.7 FL (6.5-10.1) L Neutrophils (%) (Auto) % (45.0-75.0) Lymphocytes (%) (Auto) % (20.0-45.0) Monocytes (%) (Auto) % (1.0-10.0) Eosinophils (%) (Auto) % (0.0-3.0) Basophils (%) (Auto) % (0.0-2.0) Neutrophils % (Manual) Pending Lymphocytes % (Manual) Pending Platelet Estimate Pending Platelet Morphology Pending Sodium Level 137 MMOL/L (136-145) Potassium Level 3.8 MMOL/L (3.5-5.1) Chloride Level 103 MMOL/L (98-107) Carbon Dioxide Level 26 MMOL/L (21-32) Anion Gap 8 mmol/L (5-15) Blood Urea Nitrogen 9 mg/dL (7-18) Creatinine 0.6 MG/DL (0.55-1.30) Estimat Glomerular Filtration Rate > 60 mL/min (>60) Glucose Level 137 MG/DL (74-106) H Calcium Level 8.8 MG/DL (8.5-10.1) Iron Level 7 ug/dL (50-175) L Total Iron Binding Capacity 279 ug/dL (250-450) Percent Iron Saturation 3 % (15-50) L Unsaturated Iron Binding 272 ug/dL (112-346) Total Bilirubin 0.3 MG/DL (0.2-1.0) Aspartate Amino Transf (AST/SGOT) 19 U/L (15-37) Alanine Aminotransferase (ALT/SGPT) 26 U/L (12-78) Alkaline Phosphatase 92 U/L (46-116) Troponin I 0.000 ng/mL (0.000-0.056) Total Protein 6.5 G/DL (6.4-8.2) Albumin 2.2 G/DL (3.4-5.0) L Globulin 4.3 g/dL Albumin/Globulin Ratio 0.5 (1.0-2.7) L Carcinoembryonic Antigen Pending Vitamin B12 Level 1254 PG/ML (193-986) H Folate 16.7 NG/ML (8.6-58.9) Coccidioides Antibody (Comp Fix) Pending Cryptococcus Antigen Pending Hepatitis A IgM Antibody Pending Hepatitis B Surface Antigen Pending Hepatitis B Core IgM Antibody Pending Hepatitis C Antibody Pending Histoplasma Mycelial Antibody Pending Histoplasma Antibody w Mycelial Ag Pending Histoplasma Antibody with Yeast Ag Pending HIV (1&2) Antibody Rapid Negative (NEGATIVE) TB Test (T-Spot) Pending TB Test Nil Control (T-Spot) Pending TB Test Panel A (T-Spot) Pending TB Test Panel B (T-Spot) Pending TB Test Positive Control (T-Spot) Pending Current Medications Medications (Trade) Dose Ordered Sig/Roxanne Route PRN Reason Start Time Stop Time Status Last Admin Dose Admin Acetaminophen (Tylenol) 650 mg Q4H PRN ORAL Mild Pain (Pain Scale 1-3) 01/21/19 01:45 02/18/19 01:44 Albuterol Sulfate (Proventil MDI) 2 puff Q4H PRN INH Shortness of Breath 01/21/19 01:46 02/18/19 01:45 Albuterol Sulfate (Proventil) 2.5 mg Q4HRT HHN 01/21/19 03:00 01/25/19 02:59 01/21/19 02:40 Ceftriaxone Sodium 1 gm/ Dextrose 55 ml @ 110 mls/hr Q24H IVPB 01/21/19 09:30 01/27/19 09:29 01/21/19 08:56 Dextrose (Dextrose 50%) 25 ml Q30M PRN IV Hypoglycemia 01/21/19 02:00 02/18/19 20:29 Dextrose (Dextrose 50%) 50 ml Q30M PRN IV Hypoglycemia 01/21/19 02:00 02/18/19 20:29 Diphenhydramine HCl (Benadryl) 25 mg Q6H PRN ORAL Itching/Pruritis 01/21/19 01:48 02/18/19 01:47 Lorazepam (Ativan 2mg/ml 1ml) 1 mg Q4H PRN IV For Anxiety 01/21/19 12:51 01/27/19 04:50 UNV Metronidazole (Flagyl) 500 mg Q8HR ORAL 01/21/19 06:00 01/27/19 17:22 01/21/19 05:12 Morphine Sulfate (Morphine Sulfate) 2 mg Q4H PRN IVP Moderate Pain (Pain Scale 4-6) 01/21/19 12:47 01/26/19 04:46 UNV Ondansetron HCl (Zofran) 4 mg Q6H PRN IVP Nausea & Vomiting 01/21/19 01:49 02/18/19 01:48 Pantoprazole (Protonix) 40 mg DAILY ORAL 01/21/19 09:00 02/18/19 20:59 01/21/19 08:56 Sodium Chloride 1,000 ml @ 75 mls/hr [id number] IV 01/21/19 02:00 02/18/19 01:59 01/21/19 02:00 Vancomycin HCl (Vanco rx to dose) 1 ea DAILY PRN MISC Per rx protocol 01/21/19 09:00 02/19/19 17:14 Vancomycin HCl 500 mg/Dextrose 110 ml @ 110 mls/hr Q12H IVPB 01/21/19 08:00 01/25/19 19:59 01/21/19 08:00 Adrianna Doty M.D. Jan 21, 2019 11:06
--- NOTE | 2019-01-21 12:00 | NUR ---
NURSE NOTES: Pt resting in bed, not agitated. BP 90/66. HR 121. will continue to monitor.
[2019-01-21 12:01] LABS: INR 3.6 (0.9-1.1)
--- NOTE | 2019-01-21 14:00 | NUR ---
NURSE NOTES: changed, repositioned patient, oral care provided.
--- NOTE | 2019-01-21 14:04 | NUR ---
CASE MANAGEMENT:REVIEW 01/21/19 SI: RESPIRATORY FAILURE. COUMADIN TOXICITY 97.4 125 417 106/67 100% ON VENTILATOR SUPPORT WBC+20.0 H/H-7.8 24.7 IS:IV ROCEPHIN Q24 IV VANCOMYCIN Q12 FLAGYL Q8HRS ALBUTEROL INH Q4HRS IVF@75/HR : ICU STATUS
--- NOTE | 2019-01-21 16:00 | NUR ---
NURSE NOTES: Cleaned and repositioned patient. Ativan given PRN due to anxiety.
--- NOTE | 2019-01-21 16:09 | General Progress Note ---
Assessment/Plan Assessment/Plan Assessment - Microcytic anemia - Iron deficiency - Resp failure - Hemoptysis - anticoagulated Recommendations - Begin TF - IV Iron - R/o TB - No plans fo GI w/u at this time Subjective Allergies: Coded Allergies: No Known Allergies (Unverified , 01/19/19) Subjective Intubated on isolation for r/o TB d/w RN re TF orders Objective Last 24 Hour Vital Signs Date Time Temp Pulse Resp B/P (MAP) Pulse Ox O2 Delivery O2 Flow Rate FiO2 01/21/19 15:00 Mechanical Ventilator 100 01/21/19 15:00 Mechanical Ventilator 100 01/21/19 15:00 135 42 100 01/21/19 14:00 119 18 98/65 (76) 100 01/21/19 13:00 121 18 104/70 (81) 100 01/21/19 12:46 125 34 100 01/21/19 12:00 97.4 125 17 106/67 (80) 100 01/21/19 12:00 119 01/21/19 12:00 Mechanical Ventilator Mechanical Ventilator Mechanical Ventilator 01/21/19 12:00 100 01/21/19 10:32 Mechanical Ventilator 100 01/21/19 10:32 127 35 100 01/21/19 10:32 Mechanical Ventilator 100 01/21/19 10:00 124 18 113/65 (81) 100 01/21/19 09:00 121 18 110/64 (79) 100 01/21/19 08:48 125 45 100 01/21/19 08:00 97.4 125 17 106/67 (80) 100 01/21/19 08:00 121 01/21/19 08:00 Mechanical Ventilator Mechanical Ventilator Mechanical Ventilator 01/21/19 08:00 100 01/21/19 06:47 Mechanical Ventilator 100 01/21/19 06:47 Mechanical Ventilator 100 01/21/19 06:46 133 44 100 01/21/19 05:17 126 26 100 01/21/19 05:00 124 18 116/64 (81) 100 01/21/19 04:50 98 27 Mechanical Ventilator 100 01/21/19 04:00 Mechanical Ventilator Mechanical Ventilator Mechanical Ventilator 01/21/19 04:00 100 01/21/19 04:00 97.4 125 17 106/67 (80) 100 01/21/19 04:00 120 01/21/19 03:00 129 17 103/84 (90) 100 01/21/19 02:40 131 16 98 Mechanical Ventilator 100 01/21/19 02:30 135 27 100 01/21/19 02:30 135 27 100 Mechanical Ventilator 100 01/21/19 02:00 136 29 96/65 (75) 93 01/21/19 01:30 132 27 151/64 (93) 88 01/21/19 01:30 100 01/21/19 01:30 130 27 100 01/21/19 00:00 97.7 120 34 115/79 (91) 93 01/21/19 00:00 Bi-pap Bi-pap Bi-pap 01/20/19 23:12 125 47 92 Bi-pap 100 01/20/19 23:00 118 34 114/64 (81) 90 01/20/19 23:00 118 39 92 Facial 100 01/20/19 23:00 118 39 100 Bi-pap 100 01/20/19 22:00 113 34 131/74 (93) 94 01/20/19 21:00 119 34 113/73 (86) 94 01/20/19 20:50 97.5 01/20/19 20:32 119 33 95 Facial 100 01/20/19 20:00 Bi-pap Bi-pap Bi-pap 01/20/19 20:00 80 01/20/19 20:00 123 01/20/19 20:00 121 31 160/91 (114) 96 01/20/19 19:57 111 27 100 Bi-pap 90 01/20/19 19:15 Bi-pap 90 01/20/19 19:15 111 27 100 Facial 90 01/20/19 19:00 121 31 117/64 (81) 96 01/20/19 18:00 117 35 131/88 (102) 95 01/20/19 17:52 124 40 91 Bi-pap 100 01/20/19 17:42 127 40 88 Bi-pap 100 01/20/19 17:30 123 42 88 Facial 100 01/20/19 17:00 119 35 114/59 (77) 97 Intake and Output 01/20/19 01/21/19 19:00 07:00 Intake Total 775 ml 635 ml Balance 775 ml 635 ml Intake Oral 100 ml IV Total 675 ml 635 ml # Voids 5 2 Laboratory Tests 01/21/19 00:43: Arterial Blood pH 7.323L, Arterial Blood Partial Pressure CO2 52.3H, Arterial Blood Partial Pressure O2 40.7*L, Arterial Blood HCO3 26.5H, Arterial Blood Oxygen Saturation 71.6*L, Arterial Blood Base Excess 0, Prakash Test Positive 01/21/19 03:06: Arterial Blood pH 7.380, Arterial Blood Partial Pressure CO2 42.6, Arterial Blood Partial Pressure O2 80.1, Arterial Blood HCO3 24.6, Arterial Blood Oxygen Saturation 95.0, Arterial Blood Base Excess -0.5, Prakash Test Positive 01/21/19 06:00: White Blood Count 20.0H, Red Blood Count 3.35L, Hemoglobin 7.8L, Hematocrit 24.7L, Mean Corpuscular Volume 74L, Mean Corpuscular Hemoglobin 23.2L, Mean Corpuscular Hemoglobin Concent 31.5L, Red Cell Distribution Width 19.0H, Platelet Count 458H, Mean Platelet Volume 4.7L, Neutrophils (%) (Auto) , Lymphocytes (%) (Auto) , Monocytes (%) (Auto) , Eosinophils (%) (Auto) , Basophils (%) (Auto) , Differential Total Cells Counted 100, Neutrophils % ( Manual) 83H, Lymphocytes % (Manual) 10L, Monocytes % (Manual) 7, Eosinophils % ( Manual) 0, Basophils % (Manual) 0, Band Neutrophils 0, Platelet Estimate Adequate, Platelet Morphology Normal, Polychromasia 2+, Hypochromasia 2+, Microcytosis 2+, Sodium Level 137, Potassium Level 3.8, Chloride Level 103, Carbon Dioxide Level 26, Anion Gap 8, Blood Urea Nitrogen 9, Creatinine 0.6, Estimat Glomerular Filtration Rate > 60, Glucose Level 137H, Calcium Level 8.8, Iron Level 7L, Total Iron Binding Capacity 279, Percent Iron Saturation 3L, Unsaturated Iron Binding 272, Total Bilirubin 0.3, Aspartate Amino Transf (AST/ SGOT) 19, Alanine Aminotransferase (ALT/SGPT) 26, Alkaline Phosphatase 92, Troponin I 0.000, Total Protein 6.5, Albumin 2.2L, Globulin 4.3, Albumin/ Globulin Ratio 0.5L, Carcinoembryonic Antigen [Pending], Vitamin B12 Level 1254H , Folate 16.7, Coccidioides Antibody (Comp Fix) [Pending], Cryptococcus Antigen [Pending], Hepatitis A IgM Antibody [Pending], Hepatitis B Surface Antigen [ Pending], Hepatitis B Core IgM Antibody [Pending], Hepatitis C Antibody [Pending ], Histoplasma Mycelial Antibody [Pending], Histoplasma Antibody w Mycelial Ag [ Pending], Histoplasma Antibody with Yeast Ag [Pending], HIV (1&2) Antibody Rapid Negative, TB Test (T-Spot) [Pending], TB Test Nil Control (T-Spot) [ Pending], TB Test Panel A (T-Spot) [Pending], TB Test Panel B (T-Spot) [Pending] , TB Test Positive Control (T-Spot) [Pending] 01/21/19 11:00: Prothrombin Time 35.0H, Prothromb Time International Ratio 3.6H 01/21/19 12:05: Aspergillus galactomannan Antigen [Pending], Beta-(1,3)-D-Glucan [Pending] Height (Feet): 5 Height (Inches): 3.00 Weight (Pounds): 125 Objective WDWN AA woman NCAT (+) intubated CTA RR abd soft ND NT no edema Tereso Yoder MD Jan 21, 2019 16:08
[2019-01-21] MEDS: LORazepam Inj 2mg/ml 1ml IV PRN ×2 (18:19→21:27)
--- NOTE | 2019-01-21 19:02 | NUR ---
HAND-OFF: Report given to MARIAH Mims. pt resting in bed, HR still around 115
--- NOTE | 2019-01-21 19:15 | NUR ---
NURSE NOTES: Received report from MARIAH Choudhury. Pt's resting in bed, with eyes closed, accompanied by her daughters, Orally intubated with ETT 6.0, 24 on the lower lipline. Vent settings AC 16, Vt 500, PEEP 5, 100% FiO2. Patient drowsy. OGT in place, running Vital AF at 30ml/hr currently, goal 60 ml/hr. External female catheter applied. Right AC 20G and Left FA 22G, running NS 75nl/hr. Noted bilateral soft wrist restraints, no adverse affects. HOB kept elevated. Bed in low and locked position. Safety measures in place. will continue to monitor.
[2019-01-21] MEDS: Iron Sucrose 100 MG in NS 55 ML IV SCH (21:26)
[2019-01-21] MEDS: Morphine Sulfate 2mg/ml Inj(IV/IM USE ONLY) IVP PRN (21:29)
--- NOTE | 2019-01-21 21:30 | NUR ---
NURSE NOTES: Pt's awake, urinated and anxious, breath over the vent, PRN Ativan given. Will continue to monitor.
--- NOTE | 2019-01-21 22:00 | NUR ---
NURSE NOTES: Pt stays calm, resting in bed, in no acute distress. VS stable. Will continue to monitor.
[2019-01-22] VITALS (22 sets, daily range): BP systolic 88–133; BP diastolic 53–84
--- NOTE | 2019-01-22 | NUR ---
NURSE NOTES: Pt's resting in bed with eye closed, asleep, in no acute distress. VS stable. Will continue to monitor.
--- NOTE | 2019-01-22 01:15 | Progress Note ---
DATE: 01/21/2019 CARDIOLOGY PROGRESS NOTE SUBJECTIVE: The patient remains in the intensive care unit. She remains orally intubated. Mechanically ventilated. Monitored rhythm, sinus, sinus tachycardia. OBJECTIVE: VITAL SIGNS: Blood pressure 116/64, pulse 124, and 18 to 44 is the respiratory rate. LUNGS: Coarse breath sounds. Rhonchi. HEART: Regular rhythm. Rapid rate. ABDOMEN: Soft. EXTREMITIES: No edema. LABORATORY DATA: Chemistry panel within normal limits. Iron saturation only 3%. Troponin negative. White count is 20 and hemoglobin 7.8. Tox screen is positive for cocaine and phencyclidine . ABG, pH 7.32, pCO2 52, and pO2 40. Repeated, pH 7.38, pCO2 42, and pO2 80. IMPRESSION: 1. Substance abuse. 2. History of pulmonary embolus. 3. Warfarin coagulopathy. 4. Chronic obstructive pulmonary disease. 5. Hypertension. 6. Secondary sinus tachycardia. 7. Increased risk for endocarditis. PLAN: 1. Ventilator support. 2. Antimicrobials. 3. Iron replacement. 4. Stool occult blood test. 5. Avoid beta-agonist. 6. Remains high risk. Demetris Chavez M.D. DR: LAVERN JOB#: [id number] CC:
--- NOTE | 2019-01-22 02:00 | NUR ---
NURSE NOTES: Pt's resting bed in no acute distress. VS stable. Will continue to monitor.
[2019-01-22] MEDS: Albuterol ud Inhalation HHN SCH ×6 (03:00→23:00)
--- NOTE | 2019-01-22 04:00 | NUR ---
NURSE NOTES: Pt's resting in bed, in no acute distress. VS stable. Will continue to monitor.
--- NOTE | 2019-01-22 06:00 | NUR ---
NURSE NOTES: Pt's resting in bed, anxious, and restless, PRN Ativan and Morphine given as ordered. VS table. Will continue to monitor.
[2019-01-22] MEDS: metroNIDAZOLE 500mg tab ORAL SCH (06:04)
[2019-01-22] MEDS: Morphine Sulfate 2mg/ml Inj(IV/IM USE ONLY) IVP PRN ×2 (06:06→10:43)
[2019-01-22] MEDS: LORazepam Inj 2mg/ml 1ml IV PRN ×2 (06:21→10:42)
--- NOTE | 2019-01-22 07:30 | NUR ---
HAND-OFF: Report given to MARIAH Nagel.
[2019-01-22 07:50] LABS: HEMATOCRIT 23.9 % (37.0-47.0); HEMOGLOBIN 7.3 G/DL (12.0-16.0); MEAN CORPUSCULAR VOLUME 75 FL (80-99); PLATELET COUNT 450 K/UL (150-450); RED BLOOD COUNT 3.21 M/UL (4.20-5.40); RED CELL DISTRIBUTION WIDTH 19.5 % (11.6-14.8)
[2019-01-22 07:53] LABS: WHITE BLOOD COUNT 24.7 K/UL (4.8-10.8)
[2019-01-22 08:09] LABS: INR 3.1 (0.9-1.1)
--- NOTE | 2019-01-22 08:09 | NUR ---
NURSE NOTES: Report received from MARIAH Mims. Pt awake and restless,orally intubated ETT 6.0, 24 on left lipline. Vent settings AC 16, Vt 500, PEEP 5, 100% FiO2. Low grade fever and noted with accessory breathing. Cooling measure applied.HOB elevated at 35 degree to prevent aspiration.GT feeding Vital AF at 60cc, no residual and placement intact.Puerwick catheter in place and /20 LFA/22 running NS at 75cc with no apparent infiltration. Mouth care done.Bilateral soft wrist restraints release for repositioning and no skin impairment noted.Kept clean dry and comfortable. Will continue to monitor. Addendum: 01/22/19 at 1840 by Shona Barahona RN On airborne precaution.Good hand washing done before and after entering the room.Kept clean and dry.Call light within easy reach.Will continue to monitor
[2019-01-22 08:12] LABS: ANION GAP 7 mmol/L (5-15); BLOOD UREA NITROGEN 11 mg/dL (7-18); CALCIUM 9.1 MG/DL (8.5-10.1); CARBON DIOXIDE 27 MMOL/L (21-32); CHLORIDE 105 MMOL/L (98-107); CREATININE 0.6 MG/DL (0.55-1.30); POTASSIUM 4.1 MMOL/L (3.5-5.1); SODIUM 139 MMOL/L (136-145)
[2019-01-22] MEDS: cefTRIAXone 1 GM in D5W 55 ML IVPB SCH (08:56)
--- NOTE | 2019-01-22 09:30 | NUR ---
RADIOLOGY DEPT CHEST X-RAY DONE.-P.DYE
--- NOTE | 2019-01-22 09:39 | Pulmonology Progress Note ---
Assessment/Plan Assessment/Plan 1. Substance abuse. 2. Hypoxemia. 3. Shortness of breath. 4. Coumadin toxicity. 5. Anemia. 6. Respiratory Failure DISCUSSION: Admitted to the ICU. Continue pulmonary hygiene, supportive care. The patient will be continued on albuterol, Atrovent, IV Rocephin, IV fluids, pain control, and antiemetics. DVT and GI prophylaxis and IV fluids. I will follow carefully. Will maintain AC mode; FiO2 100% Increased morphine and Ativan dose; seems to be adequate Has worsening leucocytosis; ID to address Yuri Dorsey M.D. Subjective Interval Events: Remains on vent; PaO2 72 on 100% FiO2 Constitutional: Reports: no symptoms HEENT: Repors: no symptoms Respiratory: Reports: no symptoms Cardiovascular: Reports: no symptoms Gastrointestinal/Abdominal: Reports: no symptoms Genitourinary: Reports: no symptoms Neurologic: Reports: no symptoms Allergies: Coded Allergies: No Known Allergies (Unverified , 01/19/19) Objective Last 24 Hour Vital Signs Date Time Temp Pulse Resp B/P (MAP) Pulse Ox O2 Delivery O2 Flow Rate FiO2 01/22/19 08:51 121 Mechanical Ventilator 01/22/19 08:51 Mechanical Ventilator 01/22/19 08:00 99.0 118 17 128/73 (91) 97 01/22/19 07:00 120 22 100/60 (73) 100 01/22/19 06:40 120 28 100 01/22/19 05:30 125 29 100 01/22/19 04:00 98.2 122 27 94/76 (82) 100 01/22/19 04:00 123 01/22/19 04:00 Mechanical Ventilator Mechanical Ventilator Mechanical Ventilator 01/22/19 04:00 100 01/22/19 03:30 129 28 100 01/22/19 03:30 Mechanical Ventilator 01/22/19 03:30 129 Mechanical Ventilator 01/22/19 03:00 122 22 110/61 (77) 100 01/22/19 02:00 121 27 106/79 (88) 100 01/22/19 01:00 122 27 90/64 (73) 100 01/22/19 00:54 124 27 100 01/22/19 00:00 98.0 122 23 101/62 (75) 100 01/22/19 00:00 100 01/22/19 00:00 122 01/22/19 00:00 Mechanical Ventilator Mechanical Ventilator Mechanical Ventilator 01/21/19 23:30 129 29 100 01/21/19 23:29 Mechanical Ventilator 01/21/19 23:29 129 Mechanical Ventilator 01/21/19 23:00 122 25 92/66 (75) 100 01/21/19 22:04 128 28 100 01/21/19 22:00 136 27 92/59 (70) 98 01/21/19 21:30 132 42 100 01/21/19 21:00 126 34 95/71 (79) 100 01/21/19 20:00 124 01/21/19 20:00 97.8 127 30 97/64 (75) 100 01/21/19 20:00 100 01/21/19 20:00 Mechanical Ventilator Mechanical Ventilator Mechanical Ventilator 01/21/19 20:00 127 Mechanical Ventilator 01/21/19 20:00 Mechanical Ventilator 01/21/19 19:30 127 40 100 01/21/19 19:00 125 29 98/72 (81) 100 01/21/19 18:00 118 18 139/81 (100) 100 01/21/19 17:26 126 41 100 01/21/19 17:00 120 18 122/69 (86) 100 01/21/19 16:00 98.0 125 18 110/67 (81) 100 01/21/19 16:00 Mechanical Ventilator Mechanical Ventilator Mechanical Ventilator 01/21/19 16:00 118 01/21/19 16:00 100 01/21/19 15:00 Mechanical Ventilator 100 01/21/19 15:00 Mechanical Ventilator 100 01/21/19 15:00 135 42 100 01/21/19 14:00 119 18 98/65 (76) 100 01/21/19 13:00 121 18 104/70 (81) 100 01/21/19 12:46 125 34 100 01/21/19 12:00 97.4 125 17 106/67 (80) 100 01/21/19 12:00 119 01/21/19 12:00 Mechanical Ventilator Mechanical Ventilator Mechanical Ventilator 01/21/19 12:00 100 01/21/19 10:32 Mechanical Ventilator 100 01/21/19 10:32 127 35 100 01/21/19 10:32 Mechanical Ventilator 100 01/21/19 10:00 124 18 113/65 (81) 100 Intake and Output 01/21/19 01/22/19 19:00 07:00 Intake Total 1110 ml 1495 ml Output Total 700 ml 350 ml Balance 410 ml 1145 ml Free Water 120 ml IV Total 915 ml 845 ml Tube Feeding 195 ml 530 ml Output Urine Total 700 ml 350 ml General Appearance: no acute distress HEENT: normocephalic Respiratory/Chest: chest wall non-tender, lungs clear Cardiovascular: normal peripheral pulses, normal rate Abdomen: normal bowel sounds, soft, non tender Extremities: no cyanosis Microbiology Date/Time Source Procedure Growth Status 01/19/19 10:30 Blood Blood Culture - Preliminary NO GROWTH AFTER 48 HOURS Resulted 01/19/19 10:20 Blood Blood Culture - Preliminary NO GROWTH AFTER 48 HOURS Resulted 01/19/19 14:00 Nasal Nares MRSA Culture - Final NO METHICILLIN RESISTANT STAPH AUREUS... Complete 01/19/19 11:22 Urine,Clean Catch Urine Culture - Final Mixed Gram Positive Organism Complete 01/19/19 14:00 Rectum VRE Culture - Final Enterococcus Faecium - Vre Complete 01/19/19 14:00 Rectum - Final NO CARBAPENEM-RESISTANT ENTEROBACTERI... Complete Laboratory Tests 01/21/19 11:00: Prothrombin Time 35.0H, Prothromb Time International Ratio 3.6H 01/21/19 12:05: Aspergillus galactomannan Antigen [Pending], Beta-(1,3)-D-Glucan [Pending] 01/22/19 04:00: Arterial Blood pH 7.320L, Arterial Blood Partial Pressure CO2 50.0H, Arterial Blood Partial Pressure O2 74.8L, Arterial Blood HCO3 25.7, Arterial Blood Oxygen Saturation 92.7L, Arterial Blood Base Excess -0.4, Prakash Test Positive 01/22/19 07:15: Prothrombin Time 30.9H, Prothromb Time International Ratio 3.1H, White Blood Count 24.7*H, Red Blood Count 3.21L, Hemoglobin 7.3L, Hematocrit 23.9L, Mean Corpuscular Volume 75L, Mean Corpuscular Hemoglobin 22.8L, Mean Corpuscular Hemoglobin Concent 30.6L, Red Cell Distribution Width 19.5H, Platelet Count 450 , Mean Platelet Volume 4.5L, Neutrophils (%) (Auto) , Lymphocytes (%) (Auto) , Monocytes (%) (Auto) , Eosinophils (%) (Auto) , Basophils (%) (Auto) , Neutrophils % (Manual) [Pending], Lymphocytes % (Manual) [Pending], Platelet Estimate [Pending], Platelet Morphology [Pending], Sodium Level 139, Potassium Level 4.1, Chloride Level 105, Carbon Dioxide Level 27, Anion Gap 7, Blood Urea Nitrogen 11, Creatinine 0.6, Estimat Glomerular Filtration Rate > 60, Glucose Level 197H, Calcium Level 9.1, Vancomycin Level Trough 2.2L Current Medications Medications (Trade) Dose Ordered Sig/Roxanne Route PRN Reason Start Time Stop Time Status Last Admin Dose Admin Acetaminophen (Tylenol) 650 mg Q4H PRN ORAL Mild Pain (Pain Scale 1-3) 01/21/19 01:45 02/18/19 01:44 Albuterol Sulfate (Proventil MDI) 2 puff Q4H PRN INH Shortness of Breath 01/21/19 01:46 02/18/19 01:45 Albuterol Sulfate (Proventil) 2.5 mg Q4HRT HHN 01/21/19 03:00 01/25/19 02:59 01/21/19 02:40 Ceftriaxone Sodium 1 gm/ Dextrose 55 ml @ 110 mls/hr Q24H IVPB 01/21/19 09:30 01/27/19 09:29 01/22/19 08:56 Dextrose (Dextrose 50%) 25 ml Q30M PRN IV Hypoglycemia 01/21/19 02:00 02/18/19 20:29 Dextrose (Dextrose 50%) 50 ml Q30M PRN IV Hypoglycemia 01/21/19 02:00 02/18/19 20:29 Diphenhydramine HCl (Benadryl) 25 mg Q6H PRN ORAL Itching/Pruritis 01/21/19 01:48 02/18/19 01:47 Iron Sucrose 100 mg/Sodium Chloride 60 ml @ 240 mls/hr BEDTIME IV 01/21/19 21:00 01/25/19 21:14 01/21/19 21:26 Lorazepam (Ativan 2mg/ml 1ml) 1 mg Q4H PRN IV For Anxiety 01/21/19 12:51 01/27/19 04:50 01/22/19 06:21 Metronidazole (Flagyl) 500 mg Q8HR ORAL 01/21/19 06:00 01/27/19 17:22 01/22/19 06:04 Morphine Sulfate (Morphine Sulfate) 2 mg Q4H PRN IVP Moderate Pain (Pain Scale 4-6) 01/21/19 12:47 01/26/19 04:46 01/22/19 06:06 Ondansetron HCl (Zofran) 4 mg Q6H PRN IVP Nausea & Vomiting 01/21/19 01:49 02/18/19 01:48 Pantoprazole (Protonix) 40 mg DAILY ORAL 01/21/19 09:00 02/18/19 20:59 01/22/19 08:55 Sodium Chloride 1,000 ml @ 75 mls/hr [id number] IV 01/21/19 02:00 02/18/19 01:59 01/21/19 22:16 Vancomycin HCl (Vanco rx to dose) 1 ea DAILY PRN MISC Per rx protocol 01/21/19 09:00 02/19/19 17:14 Vancomycin HCl 750 mg/Sodium Chloride 275 ml @ 183.333 mls/hr Q8HR@0200,1000,1800 IVPB 01/22/19 10:00 01/27/19 09:59 Yuri Dorsey MD Jan 22, 2019 09:39
--- NOTE | 2019-01-22 10:02 | NUR ---
NURSE NOTES: Pt seen by Dr Dorsey,will follow up with new orders.Turned and repositioned.Kept clean and dry.HOB elevated to prevent aspiration.Will continue to monitor
[2019-01-22] MEDS: Vancomycin 750mg/NS 275ml IVPB SCH ×4 (10:42→18:03)
--- NOTE | 2019-01-22 10:51 | Infectious Diseases Prog Note ---
Assessment/Plan Assessment/Plan Abx: Zosyn x1 01/19 Ceftriaxone 01/20- Assessment: Hemoptysis Cavitary PNA- r/o TB MRSA, vs aspiration pneumonia -CT chest: Irregular pleural thickening throught R hemithorax. Small amount of fluid and otherwise large amount of gas filling the R chest cavity. Severe centrilobular emphysematous changes throughout the left lung. Patchy consolidation with multiple areas of cavitation. Additional nodular densities and reticulonodular densities throught the left lung. Findings are compatible with an infectious/inflammatory process. -NEg: HIV screen, acute hep panel -fungal sp cx, bacterial sp cx p -AFB sp cx x3, MTB PCR p Supratherapeutic INR; improving Acute respiratory failure s/p intubation 01/21 Afebrile Leukocytosis, increasing -u/a wbc 20-30, nit neg, leuk +3; ucx 40-50K mixed gram positive growth HTN asthma/COPD PE on Coumadin substance abuse -UDS+ cocaine, PCP VRE colonized Plan: -Switch empiric Ceftriaxone, Flagyl #3 to Zosyn given increased WBC -Continue empiric IV Vancomycin #3 -01/19 SP ZOsyn x1 -Airborne precautions -f/u AFB sp cx x3, MTB pCR x1 -f/u cx -Monitor CBC/CMP, temperatures -f/u CT chest report -f/u sp cx (bacterial and fungal) -ICU/ETT care -Aspiration precautions -f/u Cocci ab, CrAg, Histoplasmas ab and ag, legionella ag urine, Asp ag, fungitell, TB spot Thank you for this consultation. Will continue to follow along with you. Discussed with RN. Subjective Allergies: Coded Allergies: No Known Allergies (Unverified , 01/19/19) Subjective afebrile intubated wbc increasing Objective Vital Signs Last 24 Hour Vital Signs Date Time Temp Pulse Resp B/P (MAP) Pulse Ox O2 Delivery O2 Flow Rate FiO2 01/22/19 09:00 120 22 123/78 (93) 100 01/22/19 08:51 121 Mechanical Ventilator 01/22/19 08:51 Mechanical Ventilator 01/22/19 08:00 99.0 118 17 128/73 (91) 97 01/22/19 08:00 100 01/22/19 08:00 Mechanical Ventilator Mechanical Ventilator Mechanical Ventilator 01/22/19 07:00 120 22 100/60 (73) 100 01/22/19 06:40 120 28 100 01/22/19 05:30 125 29 100 01/22/19 04:00 98.2 122 27 94/76 (82) 100 01/22/19 04:00 123 01/22/19 04:00 Mechanical Ventilator Mechanical Ventilator Mechanical Ventilator 01/22/19 04:00 100 01/22/19 03:30 129 28 100 01/22/19 03:30 Mechanical Ventilator 01/22/19 03:30 129 Mechanical Ventilator 01/22/19 03:00 122 22 110/61 (77) 100 01/22/19 02:00 121 27 106/79 (88) 100 01/22/19 01:00 122 27 90/64 (73) 100 01/22/19 00:54 124 27 100 01/22/19 00:00 98.0 122 23 101/62 (75) 100 01/22/19 00:00 100 01/22/19 00:00 122 01/22/19 00:00 Mechanical Ventilator Mechanical Ventilator Mechanical Ventilator 01/21/19 23:30 129 29 100 01/21/19 23:29 Mechanical Ventilator 01/21/19 23:29 129 Mechanical Ventilator 01/21/19 23:00 122 25 92/66 (75) 100 01/21/19 22:04 128 28 100 01/21/19 22:00 136 27 92/59 (70) 98 01/21/19 21:30 132 42 100 01/21/19 21:00 126 34 95/71 (79) 100 01/21/19 20:00 124 01/21/19 20:00 97.8 127 30 97/64 (75) 100 01/21/19 20:00 100 01/21/19 20:00 Mechanical Ventilator Mechanical Ventilator Mechanical Ventilator 01/21/19 20:00 127 Mechanical Ventilator 01/21/19 20:00 Mechanical Ventilator 01/21/19 19:30 127 40 100 01/21/19 19:00 125 29 98/72 (81) 100 01/21/19 18:00 118 18 139/81 (100) 100 01/21/19 17:26 126 41 100 01/21/19 17:00 120 18 122/69 (86) 100 01/21/19 16:00 98.0 125 18 110/67 (81) 100 01/21/19 16:00 Mechanical Ventilator Mechanical Ventilator Mechanical Ventilator 01/21/19 16:00 118 01/21/19 16:00 100 01/21/19 15:00 Mechanical Ventilator 100 01/21/19 15:00 Mechanical Ventilator 100 01/21/19 15:00 135 42 100 01/21/19 14:00 119 18 98/65 (76) 100 01/21/19 13:00 121 18 104/70 (81) 100 01/21/19 12:46 125 34 100 01/21/19 12:00 97.4 125 17 106/67 (80) 100 01/21/19 12:00 119 01/21/19 12:00 Mechanical Ventilator Mechanical Ventilator Mechanical Ventilator 01/21/19 12:00 100 Height (Feet): 5 Height (Inches): 3.00 Weight (Pounds): 125 Objective GENERAL: The patient is awake, in mild respiratory distress. HEENT: Extraocular muscles intact. No lymphadenopathy. intubated ETT CARDIOVASCULAR: S1 and S2. No rubs or gallops. No S3, no S4. PULMONARY: Mild upper airway wheezing with fair air movement in both lung mazariegos. ABDOMEN: Nondistended and nontender. EXTREMITIES: No edema. Microbiology Date/Time Source Procedure Growth Status 01/19/19 14:00 Nasal Nares MRSA Culture - Final NO METHICILLIN RESISTANT STAPH AUREUS... Complete 01/19/19 11:22 Urine,Clean Catch Urine Culture - Final Mixed Gram Positive Organism Complete 01/19/19 14:00 Rectum VRE Culture - Final Enterococcus Faecium - Vre Complete 01/19/19 14:00 Rectum - Final NO CARBAPENEM-RESISTANT ENTEROBACTERI... Complete Laboratory Tests Test 01/21/19 11:00 01/21/19 12:05 01/22/19 04:00 01/22/19 07:15 Prothrombin Time 35.0 SEC (9.30-11.50) H 30.9 SEC (9.30-11.50) H Prothromb Time International Ratio 3.6 (0.9-1.1) H 3.1 (0.9-1.1) H Aspergillus galactomannan Antigen Pending Beta-(1,3)-D-Glucan Pending Arterial Blood pH 7.320 (7.350-7.450) Arterial Blood Partial Pressure CO2 50.0 mmHg (35.0-45.0) H Arterial Blood Partial Pressure O2 74.8 mmHg (75.0-100.0) L Arterial Blood HCO3 25.7 mmol/L (22.0-26.0) Arterial Blood Oxygen Saturation 92.7 % (95-100) L Arterial Blood Base Excess -0.4 (-2-2) Prakash Test Positive White Blood Count 24.7 K/UL (4.8-10.8) *H Red Blood Count 3.21 M/UL (4.20-5.40) L Hemoglobin 7.3 G/DL (12.0-16.0) L Hematocrit 23.9 % (37.0-47.0) L Mean Corpuscular Volume 75 FL (80-99) L Mean Corpuscular Hemoglobin 22.8 PG (27.0-31.0) L Mean Corpuscular Hemoglobin Concent 30.6 G/DL (32.0-36.0) L Red Cell Distribution Width 19.5 % (11.6-14.8) H Platelet Count 450 K/UL (150-450) Mean Platelet Volume 4.5 FL (6.5-10.1) L Neutrophils (%) (Auto) % (45.0-75.0) Lymphocytes (%) (Auto) % (20.0-45.0) Monocytes (%) (Auto) % (1.0-10.0) Eosinophils (%) (Auto) % (0.0-3.0) Basophils (%) (Auto) % (0.0-2.0) Differential Total Cells Counted 100 Neutrophils % (Manual) 93 % (45-75) H Lymphocytes % (Manual) 3 % (20-45) L Monocytes % (Manual) 4 % (1-10) Eosinophils % (Manual) 0 % (0-3) Basophils % (Manual) 0 % (0-2) Band Neutrophils 0 % (0-8) Platelet Estimate Adequate Platelet Morphology Normal Polychromasia 1+ Hypochromasia 3+ Anisocytosis 2+ Microcytosis 3+ Sodium Level 139 MMOL/L (136-145) Potassium Level 4.1 MMOL/L (3.5-5.1) Chloride Level 105 MMOL/L (98-107) Carbon Dioxide Level 27 MMOL/L (21-32) Anion Gap 7 mmol/L (5-15) Blood Urea Nitrogen 11 mg/dL (7-18) Creatinine 0.6 MG/DL (0.55-1.30) Estimat Glomerular Filtration Rate > 60 mL/min (>60) Glucose Level 197 MG/DL (74-106) H Calcium Level 9.1 MG/DL (8.5-10.1) Vancomycin Level Trough 2.2 ug/mL (5.0-12.0) L Current Medications Medications (Trade) Dose Ordered Sig/Roxanne Route PRN Reason Start Time Stop Time Status Last Admin Dose Admin Acetaminophen (Tylenol) 650 mg Q4H PRN ORAL Mild Pain (Pain Scale 1-3) 01/21/19 01:45 02/18/19 01:44 Albuterol Sulfate (Proventil MDI) 2 puff Q4H PRN INH Shortness of Breath 01/21/19 01:46 02/18/19 01:45 Albuterol Sulfate (Proventil) 2.5 mg Q4HRT HHN 01/21/19 03:00 01/25/19 02:59 01/21/19 02:40 Ceftriaxone Sodium 1 gm/ Dextrose 55 ml @ 110 mls/hr Q24H IVPB 01/21/19 09:30 01/27/19 09:29 01/22/19 08:56 Dextrose (Dextrose 50%) 25 ml Q30M PRN IV Hypoglycemia 01/21/19 02:00 02/18/19 20:29 Dextrose (Dextrose 50%) 50 ml Q30M PRN IV Hypoglycemia 01/21/19 02:00 02/18/19 20:29 Diphenhydramine HCl (Benadryl) 25 mg Q6H PRN ORAL Itching/Pruritis 01/21/19 01:48 02/18/19 01:47 Iron Sucrose 100 mg/Sodium Chloride 60 ml @ 240 mls/hr BEDTIME IV 01/21/19 21:00 01/25/19 21:14 01/21/19 21:26 Lorazepam (Ativan 2mg/ml 1ml) 1 mg Q4H PRN IV For Anxiety 01/21/19 12:51 01/27/19 04:50 01/22/19 06:21 Metronidazole (Flagyl) 500 mg Q8HR ORAL 01/21/19 06:00 01/27/19 17:22 01/22/19 06:04 Morphine Sulfate (Morphine Sulfate) 2 mg Q4H PRN IVP Moderate Pain (Pain Scale 4-6) 01/21/19 12:47 01/26/19 04:46 01/22/19 06:06 Ondansetron HCl (Zofran) 4 mg Q6H PRN IVP Nausea & Vomiting 01/21/19 01:49 02/18/19 01:48 Pantoprazole (Protonix) 40 mg DAILY ORAL 01/21/19 09:00 02/18/19 20:59 01/22/19 08:55 Sodium Chloride 1,000 ml @ 75 mls/hr [id number] IV 01/21/19 02:00 02/18/19 01:59 01/21/19 22:16 Vancomycin HCl (Vanco rx to dose) 1 ea DAILY PRN MISC Per rx protocol 01/21/19 09:00 02/19/19 17:14 Vancomycin HCl 750 mg/Sodium Chloride 275 ml @ 183.333 mls/hr Q8HR@0200,1000,1800 IVPB 01/22/19 10:00 01/27/19 09:59 Adrianna Doty M.D. Jan 22, 2019 10:51
--- NOTE | 2019-01-22 11:03 | Diagnostic Imaging Report ---
Indication: Intubation Comparison: 01/19/2019 A single view chest radiograph was obtained. Findings: Endotracheal tube is about 1.5 cm above the maulik. There is extensive fibrosis of the left lung with patchy areas of hyperlucency in the upper lobes suggestive of emphysema. Large bullous hyperlucency in the right upper lobe noted. Much of the right lung is not aerated in the mid to lower lung field. This is apparently chronic. NG tube is in good position. IMPRESSION: Endotracheal tube and nasogastric tubes in good position. Extensive lung disease as discussed above
--- NOTE | 2019-01-22 11:09 | Diagnostic Imaging Report ---
Indication: Repositioning of endotracheal tube. Comparison: 02:46 A single view chest radiograph was obtained. Findings: Study done 08:24 Endotracheal tube is been pulled up and is about 3 cm above the maulik. The nasogastric tube has been pulled up many centimeters and the tip now resides above the EG junction. IMPRESSION: Endotracheal tube 3 cm above the maulik in good position. Nasogastric tube now in the midesophagus. This should either be removed or advanced much further into the stomach.
--- NOTE | 2019-01-22 11:23 | NUR ---
RESPIRATORY NOTE: Patient received mechanically ventilated on [id number] with current ordered vent settings. Patient is orally intubated with a size 6.0 ETT tube with 22cm at the lip line that is secure with an anchor fast. There are bilateral decreased breath sounds noted upon auscultation and small amount to thick clear, pink, and yellow secretions were suctioned via inline suction system without incident. Vent alarms are functional and audible. There is an ambu bag available at the bedside and the vent is connected to a red outlet. Will continue to monitor.
--- NOTE | 2019-01-22 11:24 | NUR ---
*-* INSURANCE *-* ALL CLINICALS, REVIEWS AND INTERQUAL HAVE BEEN FAXED TO: [employer] NCM: TAT... (SUBJECT TO CHANGE) P- [phone] F- [phone]..........REVIEW/CLINICAL
--- NOTE | 2019-01-22 12:06 | NUR ---
NURSE NOTES: Mouth care done, family visiting and update done.Pt turned and repositioned.Kept clean and dry
[2019-01-22] MEDS: Piperacillin/Tazobactam 3.375 GM in D5W 110 ML IVPB SCH ×2 (13:09→22:38)
--- NOTE | 2019-01-22 14:05 | NUR ---
NURSE NOTES: Pt turned and repositioned.No BM collected at this time,Hgb 7.3 and OB stool still uncollected.Dr Stack made aware, will continue to monitor
--- NOTE | 2019-01-22 14:53 | NUR ---
Social Service Note SW met with patient's sister Henrique Randall at patient's bedside to obtain history, (c). Prior to admission patient lives in an apartment with her dgt Adri Gutiérrez. Patient was seen in April in ER and transferred to [facility]. Sister states patient's most recent hospitalization was about a week ago at [facility]. Sister states patient has never been intubated, but utilizes O2 at home but doesn't know how many liters. Sister states patient's has a electric wheelchair, 3:1 commode and her dgt is her [facility] care provider. Sister states currently patient doesn't have home health services. Sister indicated working with insurance for possible hospice services. SW address code status. SW address the goal of hospice is to provide support and care through the end of process. Sister states only GOD can remove life and she would want to continue with aggressive care and full code status. Patient doesn't have an advance directive and states patient's dgt have indicated that she will be the primary contact. DELGADO unable to reach Adri [phone] at this time. Will continue to monitor.
--- NOTE | 2019-01-22 16:04 | NUR ---
NURSE NOTES: ADLs done,HOB elevated to prevent aspiration.Remains on airborne precaution.Good hand washing done before and after entering the room.Kept clean and dry.Call light within easy reach.Will continue to monitor
--- NOTE | 2019-01-22 16:23 | NUR ---
CASE MANAGEMENT:REVIEW 01/22/19 SI: RESPIRATORY FAILURE. 99.2 114 17 108/66 98% ON VENTILATOR SUPPORT WBC+24.7 H/H-7.3/23.9 IS:IV ZOSYN Q8HRS IV VANCOMYCIN Q12 IV VENOFER QHS ALBUTEROL INH Q4HRS IVF@75/HR : ICU STATUS
--- NOTE | 2019-01-22 18:02 | NUR ---
NURSE NOTES: ADLs done,HOB elevated to prevent aspiration, continue on airborne precaution.Good hand washing done before and after entering the room.Kept clean and dry.Call light within easy reach.Will continue to monitor
--- NOTE | 2019-01-22 19:27 | NUR ---
HAND-OFF: Report given to MARIAH Banegas.
--- NOTE | 2019-01-22 19:30 | NUR ---
NURSE NOTES: Recvd.on a vent.Awake,alert able to follows simple command,orally intubated.See settings.Lungs scatt.Rh.P.Ox-98-100%.Suctioned mod.amt.bloody sec.NS Lavaged.HOB>30'.Occ. Restless/agitated on bila.soft wrist restraints prev.self-injury.OGT Feeding in progress.IV therapy inf.See I/O.[email or web address].observed.
[2019-01-22] MEDS: Iron Sucrose 100 MG in NS 55 ML IV SCH (20:45)
--- NOTE | 2019-01-22 21:48 | NUR ---
NURSE NOTES: HS Care rendered.Pos. chg.Kept comfortable.Due meds admin.Family at BS.
--- NOTE | 2019-01-22 22:26 | General Progress Note ---
Assessment/Plan Assessment/Plan Assessment - Microcytic anemia - Iron deficiency - Resp failure - Hemoptysis - anticoagulated Recommendations - Continue TF - IV Iron - R/o TB - No plans fo GI w/u at this time Subjective Allergies: Coded Allergies: No Known Allergies (Unverified , 01/19/19) Subjective Intubated on isolation for r/o TB no new events Objective Last 24 Hour Vital Signs Date Time Temp Pulse Resp B/P (MAP) Pulse Ox O2 Delivery O2 Flow Rate FiO2 01/22/19 21:00 88 23 123/81 (95) 98 01/22/19 20:00 98.8 111 26 133/76 (95) 100 01/22/19 20:00 Mechanical Ventilator Mechanical Ventilator Mechanical Ventilator 01/22/19 20:00 100 01/22/19 20:00 111 01/22/19 19:57 Mechanical Ventilator 01/22/19 19:56 120 Mechanical Ventilator 01/22/19 19:30 120 21 100 01/22/19 19:00 108 18 106/74 (85) 98 01/22/19 18:00 120 20 113/84 (94) 100 01/22/19 17:00 110 20 108/78 (88) 100 01/22/19 16:42 110 20 100 01/22/19 16:00 99.2 107 17 114/76 (89) 98 01/22/19 16:00 108 01/22/19 16:00 Mechanical Ventilator Mechanical Ventilator Mechanical Ventilator 01/22/19 16:00 100 01/22/19 15:00 108 20 108/66 (80) 100 01/22/19 14:55 114 22 100 Mechanical Ventilator 01/22/19 14:45 108 22 100 Mechanical Ventilator 100 01/22/19 14:32 108 22 100 01/22/19 14:00 110 20 111/76 (88) 100 01/22/19 13:00 113 18 107/71 (83) 100 01/22/19 12:30 112 20 100 01/22/19 12:00 114 01/22/19 12:00 Mechanical Ventilator Mechanical Ventilator Mechanical Ventilator 01/22/19 12:00 109 22 88/61 (70) 100 01/22/19 12:00 100 01/22/19 11:30 112 20 100 Mechanical Ventilator 01/22/19 11:20 112 21 99 Mechanical Ventilator 100 01/22/19 11:19 112 21 100 01/22/19 11:13 98.8 01/22/19 11:00 117 22 102/69 (80) 100 01/22/19 10:00 118 22 123/67 (85) 100 01/22/19 09:50 118 27 100 01/22/19 09:00 120 22 123/78 (93) 100 01/22/19 08:51 121 Mechanical Ventilator 01/22/19 08:51 Mechanical Ventilator 01/22/19 08:00 99.0 118 17 128/73 (91) 97 01/22/19 08:00 100 01/22/19 08:00 Mechanical Ventilator Mechanical Ventilator Mechanical Ventilator 01/22/19 08:00 118 01/22/19 07:00 120 22 100/60 (73) 100 01/22/19 06:40 120 28 100 01/22/19 05:30 125 29 100 01/22/19 04:00 98.2 122 27 94/76 (82) 100 01/22/19 04:00 123 01/22/19 04:00 Mechanical Ventilator Mechanical Ventilator Mechanical Ventilator 01/22/19 04:00 100 01/22/19 03:30 129 28 100 01/22/19 03:30 Mechanical Ventilator 01/22/19 03:30 129 Mechanical Ventilator 01/22/19 03:00 122 22 110/61 (77) 100 01/22/19 02:00 121 27 106/79 (88) 100 01/22/19 01:00 122 27 90/64 (73) 100 01/22/19 00:54 124 27 100 01/22/19 00:00 98.0 122 23 101/62 (75) 100 01/22/19 00:00 100 01/22/19 00:00 122 01/22/19 00:00 Mechanical Ventilator Mechanical Ventilator Mechanical Ventilator 01/21/19 23:30 129 29 100 01/21/19 23:29 Mechanical Ventilator 01/21/19 23:29 129 Mechanical Ventilator 01/21/19 23:00 122 25 92/66 (75) 100 Intake and Output 01/21/19 01/22/19 18:59 06:59 Intake Total 1080 ml 1400 ml Output Total 500 ml 400 ml Balance 580 ml 1000 ml Free Water 120 ml IV Total 915 ml 770 ml Tube Feeding 165 ml 510 ml Output Urine Total 500 ml 400 ml Laboratory Tests 01/22/19 04:00: Arterial Blood pH 7.320L, Arterial Blood Partial Pressure CO2 50.0H, Arterial Blood Partial Pressure O2 74.8L, Arterial Blood HCO3 25.7, Arterial Blood Oxygen Saturation 92.7L, Arterial Blood Base Excess -0.4, Prakash Test Positive 01/22/19 07:15: White Blood Count 24.7*H, Red Blood Count 3.21L, Hemoglobin 7.3L, Hematocrit 23.9L, Mean Corpuscular Volume 75L, Mean Corpuscular Hemoglobin 22.8L, Mean Corpuscular Hemoglobin Concent 30.6L, Red Cell Distribution Width 19.5H, Platelet Count 450, Mean Platelet Volume 4.5L, Neutrophils (%) (Auto) , Lymphocytes (%) (Auto) , Monocytes (%) (Auto) , Eosinophils (%) (Auto) , Basophils (%) (Auto) , Differential Total Cells Counted 100, Neutrophils % ( Manual) 93H, Lymphocytes % (Manual) 3L, Monocytes % (Manual) 4, Eosinophils % ( Manual) 0, Basophils % (Manual) 0, Band Neutrophils 0, Platelet Estimate Adequate, Platelet Morphology Normal, Polychromasia 1+, Hypochromasia 3+, Anisocytosis 2+, Microcytosis 3+, Prothrombin Time 30.9H, Prothromb Time International Ratio 3.1H, Sodium Level 139, Potassium Level 4.1, Chloride Level 105, Carbon Dioxide Level 27, Anion Gap 7, Blood Urea Nitrogen 11, Creatinine 0.6, Estimat Glomerular Filtration Rate > 60, Glucose Level 197H, Calcium Level 9.1, Vancomycin Level Trough 2.2L Height (Feet): 5 Height (Inches): 3.00 Weight (Pounds): 125 Objective WDWN AA woman NCAT (+) intubated CTA RR abd soft ND NT no edema Tereso Yoder MD Jan 22, 2019 22:26
[2019-01-23] VITALS (24 sets, daily range): BP systolic 99–148; BP diastolic 23–118
--- NOTE | 2019-01-23 00:10 | NUR ---
NURSE NOTES: Restless off/on.Pos. chg Made comfortable.Suctioned mod.amt of bloody sec.NS Lavaged.P.Ox-96-98%.Jamar.OGT Feeding.Cont.plan of care.
--- NOTE | 2019-01-23 02:00 | NUR ---
NURSE NOTES: Awake off /on trashing in bed.repositioned,kept comfortable.suctioned.Cont.ca.monitoring.
[2019-01-23] MEDS: Vancomycin 750mg/NS 275ml IVPB SCH ×2 (03:00)
[2019-01-23] MEDS: Albuterol ud Inhalation HHN SCH ×6 (03:22→23:00)
--- NOTE | 2019-01-23 04:20 | NUR ---
HAND-OFF: Report given to MARIAH BAEZA.
[2019-01-23] MEDS: Piperacillin/Tazobactam 3.375 GM in D5W 110 ML IVPB SCH ×3 (05:33→22:16)
[2019-01-23 06:00] LABS: HEMATOCRIT 22.4 % (37.0-47.0); MEAN CORPUSCULAR VOLUME 76 FL (80-99); PLATELET COUNT 437 K/UL (150-450); RED BLOOD COUNT 2.96 M/UL (4.20-5.40)
[2019-01-23 06:17] LABS: HEMOGLOBIN 6.9 G/DL (12.0-16.0); WHITE BLOOD COUNT 26.1 K/UL (4.8-10.8)
[2019-01-23 06:19] LABS: ANION GAP 6 mmol/L (5-15); BLOOD UREA NITROGEN 13 mg/dL (7-18); CARBON DIOXIDE 28 MMOL/L (21-32); CHLORIDE 111 MMOL/L (98-107); CREATININE 0.5 MG/DL (0.55-1.30); POTASSIUM 4.2 MMOL/L (3.5-5.1); SODIUM 145 MMOL/L (136-145)
--- NOTE | 2019-01-23 07:00 | NUR ---
NURSE NOTES: Pt cleaned and repositioned. Continues to be restless. VSS. Shows no signs of acute distress. AFB #3 sent.
--- NOTE | 2019-01-23 07:20 | NUR ---
NURSE NOTES: Received patient from MARIAH Kenyon. Patient VS stable at this time. patient restless at this time with bilateral soft wrist restraint. Patient on ETT size 6 with 24cm at the lip-line. Patient on ventilator setting of AC 16, TV 500, FiO2 100%, and PEEP 5. Patient saturation 100% at this time. patient showing 114 heart rate on the monitor at this time. Patient showing sinus tachycardia on the monitor at this time. Patient eyes closed at this time. Patient has an OGT that is patent and running Vital AF 1.2 at 60mL/hr at this time. Patient has an order for occult blood stool collection. Will follow up. Patient has a purewick that is patent and in place at this time. Patient has a right AC 20G PIV, a left wrist 22G PIV and a right wrist 22G PIV that are all patent and asymptomatic at this time. Patient has a Hgb of 6.[address] Dorsey ordered 2 units PRBC to be given each over 4 hours. Patient needs a new type and cross at this time. Will follow up with lab. Patient has a vanco trough this morning. Will follow up. Patient is positive for TB at this time. Patient is in TB precaution room. Will ensure that all precautions are observed at this time. patient bed in low position with bed alarm on and call light in reach at this time.
--- NOTE | 2019-01-23 07:45 | NUR ---
RESPIRATORY NOTE: Received pt on current ordered vent settings. Pt ETT is patent and secured. Sx'd pt prn. Vent alarms are on and audible. Vent is plugged into red outlet. Will monitor pt progress.
--- NOTE | 2019-01-23 09:47 | Pulmonology Progress Note ---
Assessment/Plan Assessment/Plan 1. Substance abuse. 2. Hypoxemia. 3. Shortness of breath. 4. Coumadin toxicity. 5. Anemia. 6. Respiratory Failure DISCUSSION: Admitted to the ICU. Continue pulmonary hygiene, supportive care. The patient will be continued on albuterol, Atrovent, IV Rocephin, IV fluids, pain control, and antiemetics. DVT and GI prophylaxis and IV fluids. I will follow carefully. Will maintain AC mode; FiO2 100% Increased morphine and Ativan dose; seems to be adequate Has worsening leucocytosis; ID to address CXR shows possible R PTX vs atelectasis Will consult surgery Will reposition ETT Check repeat CXR Yuri Dorsey M.D. Subjective Interval Events: ETT withdrawn per RN Constitutional: Reports: no symptoms HEENT: Repors: no symptoms Respiratory: Reports: no symptoms Cardiovascular: Reports: no symptoms Gastrointestinal/Abdominal: Reports: no symptoms Genitourinary: Reports: no symptoms Neurologic: Reports: no symptoms Allergies: Coded Allergies: No Known Allergies (Unverified , 01/19/19) Objective Last 24 Hour Vital Signs Date Time Temp Pulse Resp B/P (MAP) Pulse Ox O2 Delivery O2 Flow Rate FiO2 01/23/19 08:00 Mechanical Ventilator Mechanical Ventilator Mechanical Ventilator 01/23/19 08:00 100 01/23/19 07:45 124 25 100 01/23/19 07:45 Mechanical Ventilator 01/23/19 07:45 Mechanical Ventilator 01/23/19 07:00 107 26 115/76 (89) 97 01/23/19 06:00 98.3 106 22 120/84 (96) 95 01/23/19 05:24 109 21 100 01/23/19 05:00 110 23 146/118 (127) 99 01/23/19 04:00 100 01/23/19 04:00 101 01/23/19 04:00 101 22 100/73 (82) 98 01/23/19 04:00 Mechanical Ventilator Mechanical Ventilator Mechanical Ventilator 01/23/19 03:25 117 28 100 01/23/19 03:24 108 20 96 Mechanical Ventilator 100 2/28/19 03:12 70 25 98 Mechanical Ventilator 100 01/23/19 03:00 105 13 110/43 (65) 97 01/23/19 02:00 108 19 140/23 (62) 96 01/23/19 01:30 108 21 100 01/23/19 01:00 107 24 101/79 (86) 98 01/23/19 00:00 110 01/23/19 00:00 Mechanical Ventilator Mechanical Ventilator Mechanical Ventilator 01/23/19 00:00 99.1 110 17 137/58 (84) 96 01/23/19 00:00 100 01/22/19 23:38 Mechanical Ventilator 01/22/19 23:37 121 Mechanical Ventilator 01/22/19 23:30 121 20 100 01/22/19 23:00 116 17 98/53 (68) 96 01/22/19 22:00 113 18 116/74 (88) 95 01/22/19 21:30 124 21 100 01/22/19 21:00 88 23 123/81 (95) 98 01/22/19 20:00 98.8 111 26 133/76 (95) 100 01/22/19 20:00 Mechanical Ventilator Mechanical Ventilator Mechanical Ventilator 01/22/19 20:00 100 01/22/19 20:00 111 01/22/19 19:57 Mechanical Ventilator 01/22/19 19:56 120 Mechanical Ventilator 01/22/19 19:30 120 21 100 01/22/19 19:00 108 18 106/74 (85) 98 01/22/19 18:00 120 20 113/84 (94) 100 01/22/19 17:00 110 20 108/78 (88) 100 01/22/19 16:42 110 20 100 01/22/19 16:00 99.2 107 17 114/76 (89) 98 01/22/19 16:00 108 01/22/19 16:00 Mechanical Ventilator Mechanical Ventilator Mechanical Ventilator 01/22/19 16:00 100 01/22/19 15:00 108 20 108/66 (80) 100 01/22/19 14:55 114 22 100 Mechanical Ventilator 01/22/19 14:45 108 22 100 Mechanical Ventilator 100 01/22/19 14:32 108 22 100 01/22/19 14:00 110 20 111/76 (88) 100 01/22/19 13:00 113 18 107/71 (83) 100 01/22/19 12:30 112 20 100 01/22/19 12:00 114 01/22/19 12:00 Mechanical Ventilator Mechanical Ventilator Mechanical Ventilator 01/22/19 12:00 109 22 88/61 (70) 100 01/22/19 12:00 100 01/22/19 11:30 112 20 100 Mechanical Ventilator 01/22/19 11:20 112 21 99 Mechanical Ventilator 100 01/22/19 11:19 112 21 100 01/22/19 11:13 98.8 01/22/19 11:00 117 22 102/69 (80) 100 01/22/19 10:00 118 22 123/67 (85) 100 01/22/19 09:50 118 27 100 Intake and Output 01/22/19 01/23/19 19:00 07:00 Intake Total 2104.581 ml 2225.834 ml Output Total 400 ml 600 ml Balance 1704.581 ml 1625.834 ml Free Water 60 ml 100 ml IV Total 1324.581 ml 1405.834 ml Tube Feeding 720 ml 720 ml Output Urine Total 400 ml 600 ml General Appearance: no acute distress Respiratory/Chest: chest wall non-tender, lungs clear Cardiovascular: normal peripheral pulses, normal rate Abdomen: normal bowel sounds Microbiology Date/Time Source Procedure Growth Status 01/21/19 06:00 Sputum AFB Specimen Processing Tissue - Final Resulted 01/21/19 06:00 Sputum Acid Fast Bacilli Smear - Final Resulted 01/21/19 06:00 Sputum Acid Fast Bacilli Culture Pending Resulted 01/20/19 23:00 Sputum AFB Specimen Processing Tissue - Final Resulted 01/20/19 23:00 Sputum Acid Fast Bacilli Smear - Final Resulted 01/20/19 23:00 Sputum Acid Fast Bacilli Culture Pending Resulted Laboratory Tests 01/23/19 04:20: White Blood Count 26.1*H, Red Blood Count 2.96L, Hemoglobin 6.9*L, Hematocrit 22.4L, Mean Corpuscular Volume 76L, Mean Corpuscular Hemoglobin 23.3L, Mean Corpuscular Hemoglobin Concent 30.7L, Red Cell Distribution Width 20.0H, Platelet Count 437, Mean Platelet Volume 5.0L, Neutrophils (%) (Auto) , Lymphocytes (%) (Auto) , Monocytes (%) (Auto) , Eosinophils (%) (Auto) , Basophils (%) (Auto) , Neutrophils % (Manual) [Pending], Lymphocytes % (Manual) [Pending], Platelet Estimate [Pending], Platelet Morphology [Pending], Sodium Level 145, Potassium Level 4.2, Chloride Level 111H, Carbon Dioxide Level 28, Anion Gap 6, Blood Urea Nitrogen 13, Creatinine 0.5L, Estimat Glomerular Filtration Rate > 60, Glucose Level 130H, Calcium Level 9.0 01/23/19 07:45: Arterial Blood pH 7.416, Arterial Blood Partial Pressure CO2 40.1, Arterial Blood Partial Pressure O2 67.3L, Arterial Blood HCO3 25.2, Arterial Blood Oxygen Saturation 92.8L, Arterial Blood Base Excess 0.6, Prakash Test Positive 01/23/19 09:15: Vancomycin Level Trough [Pending] Current Medications Medications (Trade) Dose Ordered Sig/Roxanne Route PRN Reason Start Time Stop Time Status Last Admin Dose Admin Acetaminophen (Tylenol) 650 mg Q4H PRN ORAL Mild Pain (Pain Scale 1-3) 01/21/19 01:45 02/18/19 01:44 Albuterol Sulfate (Proventil MDI) 2 puff Q4H PRN INH Shortness of Breath 01/21/19 01:46 02/18/19 01:45 Albuterol Sulfate (Proventil) 2.5 mg Q4HRT HHN 01/21/19 03:00 01/25/19 02:59 01/23/19 03:22 Dextrose (Dextrose 50%) 25 ml Q30M PRN IV Hypoglycemia 01/21/19 02:00 02/18/19 20:29 Dextrose (Dextrose 50%) 50 ml Q30M PRN IV Hypoglycemia 01/21/19 02:00 02/18/19 20:29 Diphenhydramine HCl (Benadryl) 25 mg Q6H PRN ORAL Itching/Pruritis 01/21/19 01:48 02/18/19 01:47 Iron Sucrose 100 mg/Sodium Chloride 60 ml @ 240 mls/hr BEDTIME IV 01/21/19 21:00 01/25/19 21:14 01/22/19 20:45 Lorazepam (Ativan 2mg/ml 1ml) 1 mg Q4H PRN IV For Anxiety 01/21/19 12:51 01/27/19 04:50 01/22/19 10:42 Morphine Sulfate (Morphine Sulfate) 2 mg Q4H PRN IVP Moderate Pain (Pain Scale 4-6) 01/21/19 12:47 01/26/19 04:46 01/22/19 10:43 Ondansetron HCl (Zofran) 4 mg Q6H PRN IVP Nausea & Vomiting 01/21/19 01:49 02/18/19 01:48 Pantoprazole (Protonix) 40 mg DAILY ORAL 01/21/19 09:00 02/18/19 20:59 01/22/19 08:55 Piperacillin Sod/ Tazobactam Sod 3.375 gm/Dextrose 110 ml @ 27.5 mls/hr EVERY 8 HOURS IVPB 01/22/19 12:00 01/27/19 11:59 01/23/19 05:33 Sodium Chloride 1,000 ml @ 75 mls/hr [id number] IV 01/21/19 02:00 02/18/19 01:59 01/23/19 08:09 Vancomycin HCl (Vanco rx to dose) 1 ea DAILY PRN MISC Per rx protocol 01/21/19 09:00 02/19/19 17:14 Vancomycin HCl 750 mg/Sodium Chloride 275 ml @ 183.333 mls/hr Q8HR@0200,1000,1800 IVPB 01/22/19 10:00 01/27/19 09:59 01/23/19 03:00 Yuri Dorsey MD Jan 23, 2019 09:47
--- NOTE | 2019-01-23 10:03 | NUR ---
NURSE NOTES: Verified with pharmacy that the vanco should be held until the trough is resulted.
[2019-01-23] MEDS: Pantoprazole Inj IVP SCH (10:37)
--- NOTE | 2019-01-23 10:51 | NUR ---
RADIOLOGY DEPT CHEST X-RAY DONE.-P.DYE
--- NOTE | 2019-01-23 10:56 | Diagnostic Imaging Report ---
Indication: Dyspnea Technique: One view of the chest Comparison: 01/22/2019 Findings: Again demonstrated is malposition of the nasogastric tube, tip projected at the level of the distal esophagus. Stable satisfactory position of endotracheal tube. Stable right lung hydropneumothorax, consistent with known history of prior pneumonectomy. Extensive left lung interstitial and airspace disease persists, unchanged. Impression: Persistent malposition of nasogastric tube. Repositioning recommended. This critical value finding was phoned to nurse Grewal in the ICU at the time of interpretation Other stable findings as described
[2019-01-23] MEDS ORDERED: Vancomycin 1gm/D5W 275ml IVPB SCH ×2 (11:00)
--- NOTE | 2019-01-23 11:17 | NUR ---
NURSE NOTES: Notified Dr Dorsey regarding chest x-ray finding and asked that Dr Nance look over chest x-ray for this patient when he comes in today. Nasogastric tube advanced 15cm at this time. tube feeding stopped. stat abdominal x-ray ordered to verify placement of tube.
--- NOTE | 2019-01-23 12:40 | NUR ---
NURSE NOTES: PRBC blood transfusion started. Temp 97.2, BP 127/81, and Hr 117.
--- NOTE | 2019-01-23 12:55 | NUR ---
NURSE NOTES: Patient blood transfusion has reached 15 min without acute transfusion reaction. Patient temp 97.4, BP 126/85, and HR 117.
--- NOTE | 2019-01-23 13:35 | NUR ---
RADIOLOGY DEPT RE-POSITION NGT PLMT WITH ABDOMEN X-RAY DONE.-P.DYE
--- NOTE | 2019-01-23 13:57 | Infectious Diseases Prog Note ---
Assessment/Plan Assessment/Plan Assessment: Hemoptysis Cavitary PNA- Probable TB vs NTM (there is an apparent prior hx of TB; details are not clear to me) r/o MRSA, vs aspiration pneumonia -CT chest: Irregular pleural thickening through R hemithorax. Small amount of fluid and otherwise large amount of gas filling the R chest cavity. Severe centrilobular emphysematous changes throughout the left lung. Patchy consolidation with multiple areas of cavitation. Additional nodular densities and reticulonodular densities throught the left lung. Findings are compatible with an infectious/inflammatory process. -NEg: HIV screen, acute hep panel, CrAg -fungal sp cx, bacterial sp cx p -AFB sp smear +3, +1; 3rd one pending, MTB PCR p Supratherapeutic INR; improving Acute respiratory failure s/p intubation 01/21 Afebrile Leukocytosis, increasing -u/a wbc 20-30, nit neg, leuk +3; ucx 40-50K mixed gram positive growth _Bcx NTD HTN asthma/COPD PE on Coumadin substance abuse -UDS+ cocaine, PCP VRE colonized Plan: -Start empiric TB tx with [facility] -monitor LFTs -Continue empiric Zosyn #2 (abx d #4) given increased WBC -Switch empiric IV Vancomycin #4 to Linezolid for MRSA coverage and for additional TB coverage -01/22 SP Ceftriaxone, Flagyl #3 -01/19 SP ZOsyn x1 -Airborne precautions -f/u AFB sp cx x3, MTB pCR x1 -f/u cx -Monitor CBC/CMP, temperatures -f/u CT chest report -f/u sp cx (bacterial and fungal) -ICU/ETT care -Aspiration precautions -f/u Cocci ab,Histoplasmas ab and ag, legionella ag urine, Asp ag, fungitell, TB spot -Cdiff if diarrhea Thank you for this consultation. Will continue to follow along with you. Discussed with RN. Subjective Allergies: Coded Allergies: No Known Allergies (Unverified , 01/19/19) Subjective afebrile intubated wbc increasing afb smear + x2 Objective Vital Signs Last 24 Hour Vital Signs Date Time Temp Pulse Resp B/P (MAP) Pulse Ox O2 Delivery O2 Flow Rate FiO2 01/23/19 11:22 Mechanical Ventilator 01/23/19 11:22 122 29 100 01/23/19 11:22 Mechanical Ventilator 01/23/19 09:01 121 26 100 01/23/19 08:00 Mechanical Ventilator Mechanical Ventilator Mechanical Ventilator 01/23/19 08:00 100 01/23/19 07:45 124 25 100 01/23/19 07:45 Mechanical Ventilator 01/23/19 07:45 Mechanical Ventilator 01/23/19 07:00 107 26 115/76 (89) 97 01/23/19 06:00 98.3 106 22 120/84 (96) 95 01/23/19 05:24 109 21 100 01/23/19 05:00 110 23 146/118 (127) 99 01/23/19 04:00 100 01/23/19 04:00 101 01/23/19 04:00 101 22 100/73 (82) 98 01/23/19 04:00 Mechanical Ventilator Mechanical Ventilator Mechanical Ventilator 01/23/19 03:25 117 28 100 01/23/19 03:24 108 20 96 Mechanical Ventilator 100 01/23/19 03:12 70 25 98 Mechanical Ventilator 100 01/23/19 03:00 105 13 110/43 (65) 97 01/23/19 02:00 108 19 140/23 (62) 96 01/23/19 01:30 108 21 100 01/23/19 01:00 107 24 101/79 (86) 98 01/23/19 00:00 110 01/23/19 00:00 Mechanical Ventilator Mechanical Ventilator Mechanical Ventilator 01/23/19 00:00 99.1 110 17 137/58 (84) 96 01/23/19 00:00 100 01/22/19 23:38 Mechanical Ventilator 01/22/19 23:37 121 Mechanical Ventilator 01/22/19 23:30 121 20 100 01/22/19 23:00 116 17 98/53 (68) 96 01/22/19 22:00 113 18 116/74 (88) 95 01/22/19 21:30 124 21 100 01/22/19 21:00 88 23 123/81 (95) 98 01/22/19 20:00 98.8 111 26 133/76 (95) 100 01/22/19 20:00 Mechanical Ventilator Mechanical Ventilator Mechanical Ventilator 01/22/19 20:00 100 01/22/19 20:00 111 01/22/19 19:57 Mechanical Ventilator 01/22/19 19:56 120 Mechanical Ventilator 01/22/19 19:30 120 21 100 01/22/19 19:00 108 18 106/74 (85) 98 01/22/19 18:00 120 20 113/84 (94) 100 01/22/19 17:00 110 20 108/78 (88) 100 01/22/19 16:42 110 20 100 01/22/19 16:00 99.2 107 17 114/76 (89) 98 01/22/19 16:00 108 01/22/19 16:00 Mechanical Ventilator Mechanical Ventilator Mechanical Ventilator 01/22/19 16:00 100 01/22/19 15:00 108 20 108/66 (80) 100 01/22/19 14:55 114 22 100 Mechanical Ventilator 01/22/19 14:45 108 22 100 Mechanical Ventilator 100 01/22/19 14:32 108 22 100 01/22/19 14:00 110 20 111/76 (88) 100 Height (Feet): 5 Height (Inches): 3.00 Weight (Pounds): 125 Objective GENERAL: The patient is awake, in mild respiratory distress. HEENT: Extraocular muscles intact. No lymphadenopathy. intubated ETT CARDIOVASCULAR: S1 and S2. No rubs or gallops. No S3, no S4. PULMONARY: Mild upper airway wheezing with fair air movement in both lung mazariegos. ABDOMEN: Nondistended and nontender. EXTREMITIES: No edema. Microbiology Date/Time Source Procedure Growth Status 01/21/19 06:00 Sputum AFB Specimen Processing Tissue - Final Resulted 01/21/19 06:00 Sputum Acid Fast Bacilli Smear - Final Resulted 01/21/19 06:00 Sputum Acid Fast Bacilli Culture Pending Resulted 01/20/19 23:00 Sputum AFB Specimen Processing Tissue - Final Resulted 01/20/19 23:00 Sputum Acid Fast Bacilli Smear - Final Resulted 01/20/19 23:00 Sputum Acid Fast Bacilli Culture Pending Resulted Laboratory Tests Test 01/23/19 04:20 01/23/19 07:45 01/23/19 09:15 White Blood Count 26.1 K/UL (4.8-10.8) *H Red Blood Count 2.96 M/UL (4.20-5.40) L Hemoglobin 6.9 G/DL (12.0-16.0) *L Hematocrit 22.4 % (37.0-47.0) L Mean Corpuscular Volume 76 FL (80-99) L Mean Corpuscular Hemoglobin 23.3 PG (27.0-31.0) L Mean Corpuscular Hemoglobin Concent 30.7 G/DL (32.0-36.0) L Red Cell Distribution Width 20.0 % (11.6-14.8) H Platelet Count 437 K/UL (150-450) Mean Platelet Volume 5.0 FL (6.5-10.1) L Neutrophils (%) (Auto) % (45.0-75.0) Lymphocytes (%) (Auto) % (20.0-45.0) Monocytes (%) (Auto) % (1.0-10.0) Eosinophils (%) (Auto) % (0.0-3.0) Basophils (%) (Auto) % (0.0-2.0) Differential Total Cells Counted 100 Neutrophils % (Manual) 93 % (45-75) H Lymphocytes % (Manual) 2 % (20-45) L Monocytes % (Manual) 5 % (1-10) Eosinophils % (Manual) 0 % (0-3) Basophils % (Manual) 0 % (0-2) Band Neutrophils 0 % (0-8) Platelet Estimate Adequate Platelet Morphology Normal Polychromasia 2+ Hypochromasia 2+ Anisocytosis 3+ Microcytosis 2+ Schistocytes 1+ Sodium Level 145 MMOL/L (136-145) Potassium Level 4.2 MMOL/L (3.5-5.1) Chloride Level 111 MMOL/L (98-107) H Carbon Dioxide Level 28 MMOL/L (21-32) Anion Gap 6 mmol/L (5-15) Blood Urea Nitrogen 13 mg/dL (7-18) Creatinine 0.5 MG/DL (0.55-1.30) L Estimat Glomerular Filtration Rate > 60 mL/min (>60) Glucose Level 130 MG/DL (74-106) H Calcium Level 9.0 MG/DL (8.5-10.1) Arterial Blood pH 7.416 (7.350-7.450) Arterial Blood Partial Pressure CO2 40.1 mmHg (35.0-45.0) Arterial Blood Partial Pressure O2 67.3 mmHg (75.0-100.0) L Arterial Blood HCO3 25.2 mmol/L (22.0-26.0) Arterial Blood Oxygen Saturation 92.8 % (95-100) L Arterial Blood Base Excess 0.6 (-2-2) Prakash Test Positive Vancomycin Level Trough 5.1 ug/mL (5.0-12.0) Current Medications Medications (Trade) Dose Ordered Sig/Roxanne Route PRN Reason Start Time Stop Time Status Last Admin Dose Admin Acetaminophen (Tylenol) 650 mg Q4H PRN ORAL Mild Pain (Pain Scale 1-3) 01/21/19 01:45 02/18/19 01:44 Albuterol Sulfate (Proventil MDI) 2 puff Q4H PRN INH Shortness of Breath 01/21/19 01:46 02/18/19 01:45 Albuterol Sulfate (Proventil) 2.5 mg Q4HRT HHN 01/21/19 03:00 01/25/19 02:59 01/23/19 03:22 Dextrose (Dextrose 50%) 25 ml Q30M PRN IV Hypoglycemia 01/21/19 02:00 02/18/19 20:29 Dextrose (Dextrose 50%) 50 ml Q30M PRN IV Hypoglycemia 01/21/19 02:00 02/18/19 20:29 Diphenhydramine HCl (Benadryl) 25 mg Q6H PRN ORAL Itching/Pruritis 01/21/19 01:48 02/18/19 01:47 Iron Sucrose 100 mg/Sodium Chloride 60 ml @ 240 mls/hr BEDTIME IV 01/21/19 21:00 01/25/19 21:14 01/22/19 20:45 Lorazepam (Ativan 2mg/ml 1ml) 1 mg Q4H PRN IV For Anxiety 01/21/19 12:51 01/27/19 04:50 01/22/19 10:42 Morphine Sulfate (Morphine Sulfate) 2 mg Q4H PRN IVP Moderate Pain (Pain Scale 4-6) 01/21/19 12:47 01/26/19 04:46 01/22/19 10:43 Ondansetron HCl (Zofran) 4 mg Q6H PRN IVP Nausea & Vomiting 01/21/19 01:49 02/18/19 01:48 Pantoprazole (Protonix) 40 mg DAILY IVP 01/23/19 10:00 02/22/19 09:59 01/23/19 10:37 Piperacillin Sod/ Tazobactam Sod 3.375 gm/Dextrose 110 ml @ 27.5 mls/hr EVERY 8 HOURS IVPB 01/22/19 12:00 01/27/19 11:59 01/23/19 05:33 Sodium Chloride 1,000 ml @ 75 mls/hr [id number] IV 01/21/19 02:00 02/18/19 01:59 01/23/19 08:09 Vancomycin HCl (Vanco rx to dose) 1 ea DAILY PRN MISC Per rx protocol 01/21/19 09:00 02/19/19 17:14 Vancomycin HCl 1 gm/Dextrose 275 ml @ 183.708 mls/hr Q8H IVPB 01/23/19 11:00 01/28/19 10:59 01/23/19 10:37 Adrianna Doty M.D. Jan 23, 2019 13:57
--- NOTE | 2019-01-23 14:00 | NUR ---
NURSE NOTES: Patient VS stable at this time. Patient is receiving PRBC at this time. Patient showing no sign of acute distress at this time.
--- NOTE | 2019-01-23 15:35 | NUR ---
NURSE NOTES: Unable to give PO medications at this time as I am still waiting for OG tube placement verification. Tube was advanced 15cm based upon the chest x-ray from this morning.
--- NOTE | 2019-01-23 15:55 | NUR ---
CASE MANAGEMENT:REVIEW 01/22/19 SI: RESPIRATORY FAILURE. R/O Tb 99.2 114 17 108/66 98% ON VENTILATOR SUPPORT WBC+24.7 H/H-7.3/23.9 IS:ZYVOX NG Q12 RIFAMPIN NG QD MYAMBUTOL NG QD INH NG QD PZA NG QD PYRIDOXINE NG QD IV PROTONIX QD IV ZOSYN Q8HR : ICU STATUS PLAN: AIRBORNE ISOLATION START TB MEDS DAY #1
--- NOTE | 2019-01-23 16:05 | Diagnostic Imaging Report ---
Indication: Nasogastric tube malposition Technique: Supine view of the upper abdomen Comparison: Chest radiograph of earlier the same day Findings: Advancement of previously malpositioned gastric tube, tip now projected at the level gastric fundus, proximal port beyond the gastroesophageal junction. There is a positive bowel gas. Pulmonary parenchymal changes described on prior chest radiograph are again demonstrated Impression: Improved and now satisfactory position of nasogastric tube
[2019-01-23] MEDS: Isoniazid 300mg tab ORAL SCH (16:57)
[2019-01-23] MEDS: Pyridoxine 50mg tab ORAL SCH (16:57)
--- NOTE | 2019-01-23 17:00 | NUR ---
NURSE NOTES: Patient VS stable at this time. All of patient's PIVs are leaking at this time. Inserting a new IV at this time to continue blood transfusion.
--- NOTE | 2019-01-23 17:43 | Consultation ---
History of Present Illness General Date patient seen: Jan 23, 2019 Chief Complaint: Dyspnea/Respdistress Reason for Consultation: ptx Present Illness HPI 58 year old female currently in ICU in critical condition presented with SOB and respiratory insufficiency. Has been cared for by medical teams and critical care team. Plain films demonstrate abnormality in right lung field with hydropneumothorax. surgery called to evaluate. patient seen, chart reviewed, patient examined. Allergies: Coded Allergies: No Known Allergies (Unverified , 01/19/19) Medication History Scheduled Albuterol Sulfate (Ventolin Hfa), 2 PUFFS INH EVERY 6 HOURS, (Reported) Amlodipine Besylate (Norvasc), 10 MG ORAL DAILY, (Reported) Warfarin Sod* (Warfarin Sod*), 5 MG ORAL DAILY, (Reported) Scheduled PRN Acetaminophen With Codeine #2 Tablet (Acetaminophen With Codeine #2 Tablet), 1 TAB ORAL Q6H PRN for For Pain, (Reported) Miscellaneous Medications Ethambutol Hcl (Ethambutol Hcl), 400 MG PO, (Reported) Patient History Limited by: medical condition History Provided By: Medical Record, PMD Healthcare decision maker Resuscitation status Full Code Advanced Directive on File No Past Medical/Surgical History Past Medical/Surgical History: (1) Coumadin toxicity (2) Shortness of breath (3) Dyspnea (4) Respiratory distress (5) Anemia (6) poly sub abuse (7) Tachyarrhythmia Review of Systems ROS Narrative cannot obtain given medical condition Physical Exam General Appearance: mild distress Lines, tubes and drains: other HEENT: mucous membranes moist Neck: other Respiratory/Chest: on vent, other Cardiovascular/Chest: tachycardia Abdomen: soft, no organomegaly, no mass Extremities: normal inspection Skin Exam: warm/dry Last 24 Hour Vital Signs Date Time Temp Pulse Resp B/P (MAP) Pulse Ox O2 Delivery O2 Flow Rate FiO2 01/23/19 16:39 118 24 100 01/23/19 15:00 97 26 126/90 (102) 96 01/23/19 14:42 Mechanical Ventilator 01/23/19 14:42 123 26 100 01/23/19 14:42 Mechanical Ventilator 01/23/19 14:00 96 26 126/85 (99) 97 01/23/19 13:00 109 25 119/82 (94) 95 01/23/19 12:40 124 25 100 01/23/19 12:00 109 01/23/19 12:00 97.3 109 18 99/68 (78) 97 01/23/19 12:00 100 01/23/19 12:00 Mechanical Ventilator Mechanical Ventilator Mechanical Ventilator 01/23/19 11:22 Mechanical Ventilator 01/23/19 11:22 122 29 100 01/23/19 11:22 Mechanical Ventilator 01/23/19 11:00 113 21 110/89 (96) 99 01/23/19 10:00 115 23 107/77 (87) 99 01/23/19 09:01 121 26 100 01/23/19 09:00 117 21 116/78 (91) 100 01/23/19 08:00 Mechanical Ventilator Mechanical Ventilator Mechanical Ventilator 01/23/19 08:00 100 01/23/19 08:00 102 01/23/19 08:00 102 27 118/77 (91) 98 01/23/19 07:45 124 25 100 01/23/19 07:45 Mechanical Ventilator 01/23/19 07:45 Mechanical Ventilator 01/23/19 07:00 107 26 115/76 (89) 97 01/23/19 06:00 98.3 106 22 120/84 (96) 95 01/23/19 05:24 109 21 100 01/23/19 05:00 110 23 146/118 (127) 99 01/23/19 04:00 100 01/23/19 04:00 101 01/23/19 04:00 101 22 100/73 (82) 98 01/23/19 04:00 Mechanical Ventilator Mechanical Ventilator Mechanical Ventilator 01/23/19 03:25 117 28 100 01/23/19 03:24 108 20 96 Mechanical Ventilator 100 01/23/19 03:12 70 25 98 Mechanical Ventilator 100 01/23/19 03:00 105 13 110/43 (65) 97 01/23/19 02:00 108 19 140/23 (62) 96 01/23/19 01:30 108 21 100 01/23/19 01:00 107 24 101/79 (86) 98 01/23/19 00:00 110 01/23/19 00:00 Mechanical Ventilator Mechanical Ventilator Mechanical Ventilator 01/23/19 00:00 99.1 110 17 137/58 (84) 96 01/23/19 00:00 100 01/22/19 23:38 Mechanical Ventilator 01/22/19 23:37 121 Mechanical Ventilator 01/22/19 23:30 121 20 100 01/22/19 23:00 116 17 98/53 (68) 96 01/22/19 22:00 113 18 116/74 (88) 95 01/22/19 21:30 124 21 100 01/22/19 21:00 88 23 123/81 (95) 98 01/22/19 20:00 98.8 111 26 133/76 (95) 100 01/22/19 20:00 Mechanical Ventilator Mechanical Ventilator Mechanical Ventilator 01/22/19 20:00 100 01/22/19 20:00 111 01/22/19 19:57 Mechanical Ventilator 01/22/19 19:56 120 Mechanical Ventilator 01/22/19 19:30 120 21 100 01/22/19 19:00 108 18 106/74 (85) 98 01/22/19 18:00 120 20 113/84 (94) 100 Intake and Output 01/22/19 01/23/19 19:00 07:00 Intake Total 2104.581 ml 2225.834 ml Output Total 400 ml 600 ml Balance 1704.581 ml 1625.834 ml Free Water 60 ml 100 ml IV Total 1324.581 ml 1405.834 ml Tube Feeding 720 ml 720 ml Output Urine Total 400 ml 600 ml Laboratory Tests Test 01/23/19 04:20 01/23/19 07:45 01/23/19 09:15 White Blood Count 26.1 K/UL (4.8-10.8) *H Red Blood Count 2.96 M/UL (4.20-5.40) L Hemoglobin 6.9 G/DL (12.0-16.0) *L Hematocrit 22.4 % (37.0-47.0) L Mean Corpuscular Volume 76 FL (80-99) L Mean Corpuscular Hemoglobin 23.3 PG (27.0-31.0) L Mean Corpuscular Hemoglobin Concent 30.7 G/DL (32.0-36.0) L Red Cell Distribution Width 20.0 % (11.6-14.8) H Platelet Count 437 K/UL (150-450) Mean Platelet Volume 5.0 FL (6.5-10.1) L Neutrophils (%) (Auto) % (45.0-75.0) Lymphocytes (%) (Auto) % (20.0-45.0) Monocytes (%) (Auto) % (1.0-10.0) Eosinophils (%) (Auto) % (0.0-3.0) Basophils (%) (Auto) % (0.0-2.0) Differential Total Cells Counted 100 Neutrophils % (Manual) 93 % (45-75) H Lymphocytes % (Manual) 2 % (20-45) L Monocytes % (Manual) 5 % (1-10) Eosinophils % (Manual) 0 % (0-3) Basophils % (Manual) 0 % (0-2) Band Neutrophils 0 % (0-8) Platelet Estimate Adequate Platelet Morphology Normal Polychromasia 2+ Hypochromasia 2+ Anisocytosis 3+ Microcytosis 2+ Schistocytes 1+ Sodium Level 145 MMOL/L (136-145) Potassium Level 4.2 MMOL/L (3.5-5.1) Chloride Level 111 MMOL/L (98-107) H Carbon Dioxide Level 28 MMOL/L (21-32) Anion Gap 6 mmol/L (5-15) Blood Urea Nitrogen 13 mg/dL (7-18) Creatinine 0.5 MG/DL (0.55-1.30) L Estimat Glomerular Filtration Rate > 60 mL/min (>60) Glucose Level 130 MG/DL (74-106) H Calcium Level 9.0 MG/DL (8.5-10.1) Arterial Blood pH 7.416 (7.350-7.450) Arterial Blood Partial Pressure CO2 40.1 mmHg (35.0-45.0) Arterial Blood Partial Pressure O2 67.3 mmHg (75.0-100.0) L Arterial Blood HCO3 25.2 mmol/L (22.0-26.0) Arterial Blood Oxygen Saturation 92.8 % (95-100) L Arterial Blood Base Excess 0.6 (-2-2) Prakash Test Positive Vancomycin Level Trough 5.1 ug/mL (5.0-12.0) Height (Feet): 5 Height (Inches): 3.00 Weight (Pounds): 125 Medications Current Medications Medications (Trade) Dose Ordered Sig/Roxanne Route PRN Reason Start Time Stop Time Status Last Admin Dose Admin Acetaminophen (Tylenol) 650 mg Q4H PRN ORAL Mild Pain (Pain Scale 1-3) 01/21/19 01:45 02/18/19 01:44 Albuterol Sulfate (Proventil MDI) 2 puff Q4H PRN INH Shortness of Breath 01/21/19 01:46 02/18/19 01:45 Albuterol Sulfate (Proventil) 2.5 mg Q4HRT HHN 01/21/19 03:00 01/25/19 02:59 01/23/19 03:22 Dextrose (Dextrose 50%) 25 ml Q30M PRN IV Hypoglycemia 01/21/19 02:00 02/18/19 20:29 Dextrose (Dextrose 50%) 50 ml Q30M PRN IV Hypoglycemia 01/21/19 02:00 02/18/19 20:29 Diphenhydramine HCl (Benadryl) 25 mg Q6H PRN ORAL Itching/Pruritis 01/21/19 01:48 02/18/19 01:47 Ethambutol HCl (Myambutol) 1,000 mg DAILY ORAL 01/23/19 15:00 02/22/19 14:59 01/23/19 16:56 Iron Sucrose 100 mg/Sodium Chloride 60 ml @ 240 mls/hr BEDTIME IV 01/21/19 21:00 01/25/19 21:14 01/22/19 20:45 Isoniazid (Inh) 300 mg DAILY ORAL 01/23/19 15:00 02/22/19 14:59 01/23/19 16:57 Linezolid (Zyvox) 600 mg EVERY 12 HOURS ORAL 01/23/19 21:00 01/28/19 20:59 Lorazepam (Ativan 2mg/ml 1ml) 1 mg Q4H PRN IV For Anxiety 01/21/19 12:51 01/27/19 04:50 01/22/19 10:42 Morphine Sulfate (Morphine Sulfate) 2 mg Q4H PRN IVP Moderate Pain (Pain Scale 4-6) 01/21/19 12:47 01/26/19 04:46 01/22/19 10:43 Ondansetron HCl (Zofran) 4 mg Q6H PRN IVP Nausea & Vomiting 01/21/19 01:49 02/18/19 01:48 Pantoprazole (Protonix) 40 mg DAILY IVP 01/23/19 10:00 02/22/19 09:59 01/23/19 10:37 Piperacillin Sod/ Tazobactam Sod 3.375 gm/Dextrose 110 ml @ 27.5 mls/hr EVERY 8 HOURS IVPB 01/22/19 12:00 01/27/19 11:59 01/23/19 14:28 Pyrazinamide (Pza) 1,500 mg DAILY ORAL 01/23/19 15:00 02/22/19 14:59 01/23/19 16:57 Pyridoxine HCl (Vitamin B6) 50 mg DAILY ORAL 01/23/19 15:00 02/22/19 14:59 01/23/19 16:57 Rifampin (Rifadin) 600 mg DAILY ORAL 01/23/19 15:00 02/22/19 14:59 01/23/19 16:57 Sodium Chloride 1,000 ml @ 75 mls/hr [id number] IV 01/21/19 02:00 02/18/19 01:59 01/23/19 08:09 Assessment/Plan Problem List: (1) Hydropneumothorax Assessment & Plan: Right lung hydropneumothorax. Seen on plain films. stable Findings related to patients hx of pneumectomy. have noted on prior films and stable. currently unlikely to be etiology but if septic can become area of concern will hold on tube placement for now will follow with recs thank you AM XR ICD Codes: J94.8 - Other specified pleural conditions SNOMED: 35490017 (2) Respiratory distress ICD Codes: R06.03 - Acute respiratory distress SNOMED: 139878320 Alvaro Nance Jan 23, 2019 17:43
[2019-01-23] MEDS: LORazepam Inj 2mg/ml 1ml IV PRN ×2 (17:53→22:16)
--- NOTE | 2019-01-23 19:45 | NUR ---
HAND-OFF: Report given to MARIAH Damon. Patient VS stable at this time with no sign of acute distress at this time. Patient second PRBC still running at this time. Endorsed to follow up.
--- NOTE | 2019-01-23 19:46 | NUR ---
NURSE NOTES: Endorsement received from MARIAH Mena. Patient orally intubated with ET 6.0, 24 lower lipline. AC 16, Vt 500, PEEP 5 100% FiO2. Noted with bloody secretions. OGT patent and intact. Placement rechecked per auscultation. No residual. Ongoing Vital AF 60ml/hr. Bilateral soft wrist restraints. Skin warm and dry, intact. With right forearm g20 and left wrist g 20. Ongoing 2nd unit of 2 units PRBC. Name and unit number rechecked against patient's medical ID band. Head of bed elevated. Bed alarm on. Bed locked and in low position.
--- NOTE | 2019-01-23 19:56 | General Progress Note ---
Assessment/Plan Assessment/Plan Assessment - Microcytic anemia - Iron deficiency - Resp failure - Hemoptysis - anticoagulated Recommendations - Continue TF - IV Iron - Rx TB - No plans fo GI w/u at this time Subjective Allergies: Coded Allergies: No Known Allergies (Unverified , 01/19/19) Subjective Intubated AFB (+) sputum reported no new events Objective Last 24 Hour Vital Signs Date Time Temp Pulse Resp B/P (MAP) Pulse Ox O2 Delivery O2 Flow Rate FiO2 01/23/19 19:00 101 21 147/96 (113) 96 01/23/19 18:00 97 25 139/68 (91) 98 01/23/19 17:00 105 26 148/90 (109) 98 01/23/19 16:39 118 24 100 01/23/19 16:00 110 01/23/19 16:00 Mechanical Ventilator Mechanical Ventilator Mechanical Ventilator 01/23/19 16:00 100 01/23/19 16:00 97.4 98 24 138/108 (118) 96 01/23/19 15:00 97 26 126/90 (102) 96 01/23/19 14:42 Mechanical Ventilator 01/23/19 14:42 123 26 100 01/23/19 14:42 Mechanical Ventilator 01/23/19 14:00 96 26 126/85 (99) 97 01/23/19 13:00 109 25 119/82 (94) 95 01/23/19 12:40 124 25 100 01/23/19 12:00 109 01/23/19 12:00 97.3 109 18 99/68 (78) 97 01/23/19 12:00 100 01/23/19 12:00 Mechanical Ventilator Mechanical Ventilator Mechanical Ventilator 01/23/19 11:22 Mechanical Ventilator 01/23/19 11:22 122 29 100 01/23/19 11:22 Mechanical Ventilator 01/23/19 11:00 113 21 110/89 (96) 99 01/23/19 10:00 115 23 107/77 (87) 99 01/23/19 09:01 121 26 100 01/23/19 09:00 117 21 116/78 (91) 100 01/23/19 08:00 Mechanical Ventilator Mechanical Ventilator Mechanical Ventilator 01/23/19 08:00 100 01/23/19 08:00 102 01/23/19 08:00 102 27 118/77 (91) 98 01/23/19 07:45 124 25 100 01/23/19 07:45 Mechanical Ventilator 01/23/19 07:45 Mechanical Ventilator 01/23/19 07:00 107 26 115/76 (89) 97 01/23/19 06:00 98.3 106 22 120/84 (96) 95 01/23/19 05:24 109 21 100 01/23/19 05:00 110 23 146/118 (127) 99 01/23/19 04:00 100 01/23/19 04:00 101 01/23/19 04:00 101 22 100/73 (82) 98 01/23/19 04:00 Mechanical Ventilator Mechanical Ventilator Mechanical Ventilator 01/23/19 03:25 117 28 100 01/23/19 03:24 108 20 96 Mechanical Ventilator 100 01/23/19 03:12 70 25 98 Mechanical Ventilator 100 01/23/19 03:00 105 13 110/43 (65) 97 01/23/19 02:00 108 19 140/23 (62) 96 01/23/19 01:30 108 21 100 01/23/19 01:00 107 24 101/79 (86) 98 01/23/19 00:00 110 01/23/19 00:00 Mechanical Ventilator Mechanical Ventilator Mechanical Ventilator 01/23/19 00:00 99.1 110 17 137/58 (84) 96 01/23/19 00:00 100 01/22/19 23:38 Mechanical Ventilator 01/22/19 23:37 121 Mechanical Ventilator 01/22/19 23:30 121 20 100 01/22/19 23:00 116 17 98/53 (68) 96 01/22/19 22:00 113 18 116/74 (88) 95 01/22/19 21:30 124 21 100 01/22/19 21:00 88 23 123/81 (95) 98 01/22/19 20:00 98.8 111 26 133/76 (95) 100 01/22/19 20:00 Mechanical Ventilator Mechanical Ventilator Mechanical Ventilator 01/22/19 20:00 100 01/22/19 20:00 111 01/22/19 19:57 Mechanical Ventilator 01/22/19 19:56 120 Mechanical Ventilator Intake and Output 01/22/19 01/23/19 19:00 07:00 Intake Total 2104.581 ml 2225.834 ml Output Total 400 ml 600 ml Balance 1704.581 ml 1625.834 ml Free Water 60 ml 100 ml IV Total 1324.581 ml 1405.834 ml Tube Feeding 720 ml 720 ml Output Urine Total 400 ml 600 ml Laboratory Tests 01/23/19 04:20: White Blood Count 26.1*H, Red Blood Count 2.96L, Hemoglobin 6.9*L, Hematocrit 22.4L, Mean Corpuscular Volume 76L, Mean Corpuscular Hemoglobin 23.3L, Mean Corpuscular Hemoglobin Concent 30.7L, Red Cell Distribution Width 20.0H, Platelet Count 437, Mean Platelet Volume 5.0L, Neutrophils (%) (Auto) , Lymphocytes (%) (Auto) , Monocytes (%) (Auto) , Eosinophils (%) (Auto) , Basophils (%) (Auto) , Differential Total Cells Counted 100, Neutrophils % ( Manual) 93H, Lymphocytes % (Manual) 2L, Monocytes % (Manual) 5, Eosinophils % ( Manual) 0, Basophils % (Manual) 0, Band Neutrophils 0, Platelet Estimate Adequate, Platelet Morphology Normal, Polychromasia 2+, Hypochromasia 2+, Anisocytosis 3+, Microcytosis 2+, Schistocytes 1+, Sodium Level 145, Potassium Level 4.2, Chloride Level 111H, Carbon Dioxide Level 28, Anion Gap 6, Blood Urea Nitrogen 13, Creatinine 0.5L, Estimat Glomerular Filtration Rate > 60, Glucose Level 130H, Calcium Level 9.0 01/23/19 07:45: Arterial Blood pH 7.416, Arterial Blood Partial Pressure CO2 40.1, Arterial Blood Partial Pressure O2 67.3L, Arterial Blood HCO3 25.2, Arterial Blood Oxygen Saturation 92.8L, Arterial Blood Base Excess 0.6, Prakash Test Positive 01/23/19 09:15: Vancomycin Level Trough 5.1 Height (Feet): 5 Height (Inches): 3.00 Weight (Pounds): 125 Objective WDWN AA woman NCAT (+) intubated CTA RR abd soft ND NT no edema Tereso Yoder MD Jan 23, 2019 19:56
--- NOTE | 2019-01-23 20:30 | NUR ---
NURSE NOTES: PRBC infused. No transfusion reaction noted. Will continue to monitor.
[2019-01-23] MEDS: Iron Sucrose 100 MG in NS 55 ML IV SCH (21:10)
--- NOTE | 2019-01-23 22:00 | NUR ---
NURSE NOTES: Patient restless and agitated. Reorientation done. PRN ativan given
[2019-01-24] VITALS (35 sets, daily range): BP systolic 0–155; BP diastolic 0–94
--- NOTE | 2019-01-24 | NUR ---
NURSE NOTES: Patient asleep at this time. Still sinus tachycardic on the monitor.
--- NOTE | 2019-01-24 02:00 | NUR ---
NURSE NOTES: Repositioned. Secretions suctioned.
[2019-01-24] MEDS: Albuterol ud Inhalation HHN SCH ×5 (03:34→19:31)
--- NOTE | 2019-01-24 04:30 | NUR ---
NURSE NOTES: Sputum collected and sent to lab for MTB PCR detection
--- NOTE | 2019-01-24 05:00 | NUR ---
NURSE NOTES: Bed bath, change of linens done
[2019-01-24] MEDS: Piperacillin/Tazobactam 3.375 GM in D5W 110 ML IVPB SCH (05:50)
[2019-01-24 06:30] LABS: HEMATOCRIT 33.2 % (37.0-47.0); HEMOGLOBIN 10.7 G/DL (12.0-16.0); MEAN CORPUSCULAR VOLUME 79 FL (80-99); PLATELET COUNT 440 K/UL (150-450); RED BLOOD COUNT 4.19 M/UL (4.20-5.40); RED CELL DISTRIBUTION WIDTH 18.5 % (11.6-14.8)
[2019-01-24 06:39] LABS: INR 1.5 (0.9-1.1)
--- NOTE | 2019-01-24 07:21 | NUR ---
HAND-OFF: Called Dr. Doty and left a message for WBC of 29.0. Awaiting for return call. Report given to MARIAH Mena.
--- NOTE | 2019-01-24 07:21 | NUR ---
NURSE NOTES: Received patient from MARIAH Damon. Patient VS unstable at this time. Patient oxygen saturation is fluctuating between 64-79% saturation at this time. Patient HR 120 at this time and BP 117/78 at this time. Patient suctioned at this time. oxygen monitor moved from ear to finger to forehead. Saturation remains the same. Will notify Dr Dorsey at this time. Patient is calm at this time. Patient showing sinus tachycardia on the monitor. Patient using accessory muscles for breathing. Patient intubated with ETT size 6 with 22cm at the lip-line at this time. chest x-ray has not yet been performed today. Patient on ventilator setting of AC 6, TV 500, FiO2 100%, and PEEP 5. Patient has an OGT that is patent and verified placement by abdomen x-ray. Patient running vital AF 1.2 at 60mL/hr at this time. Patient has bilateral soft wrist restraints to prevent her from removing her ETT at this time. Patient has a right forearm 20G and a left hang 20G PIV that are both patent and asymptomatic at this time. Patient is running NS at 75mL/hr at this time. Patient labs have improved since yesterday. Patient's Hgb is 10.7 this morning compared to 6.9 yesterday. Patient bed in low position with bed alarm on and call light in reach at this time.
[2019-01-24 07:23] LABS: ALANINE AMINOTRANSFERASE 29 U/L (12-78); ALBUMIN/GLOBULIN RATIO 0.6 (1.0-2.7); ALKALINE PHOSPHATASE 162 U/L (46-116); ANION GAP 13 mmol/L (5-15); ASPARTATE AMINO TRANSFERASE 35 U/L (15-37); BILIRUBIN,TOTAL 0.6 MG/DL (0.2-1.0); BLOOD UREA NITROGEN 13 mg/dL (7-18); CALCIUM 8.1 MG/DL (8.5-10.1); CARBON DIOXIDE 23 MMOL/L (21-32); CHLORIDE 113 MMOL/L (98-107); CREATININE 0.4 MG/DL (0.55-1.30); SODIUM 149 MMOL/L (136-145)
--- NOTE | 2019-01-24 07:48 | NUR ---
RESPIRATORY NOTE: received pt on vent, intubated with 6.0 ett placed 22cm at the lip. pt breathing irregularly with RR of 30-33. Low saturation reading of 69-74. will monitor pt closely and follow orders.
--- NOTE | 2019-01-24 08:00 | NUR ---
NURSE NOTES: Notified Dr Dorsey regarding the patients oxygen saturation of 75% at this time. Patient is already on 100% FiO2 at this time. Stat ABG and stat chest x-ray have been ordered. Will notify Dr Dorsey regarding the result.
--- NOTE | 2019-01-24 08:30 | NUR ---
NURSE NOTES: Dr Dorsey came in to see the patient. ABG result not ready yet and chest x-ray not taken yet. Called x-ray to follow up at this time.
--- NOTE | 2019-01-24 09:30 | NUR ---
NURSE NOTES: Spoke with pharmacy regarding Ethambutol. This medication is due now but the medication is not in the pyxis at this time. The pharmacy reported that they would send the medication up.
[2019-01-24] MEDS: Pyridoxine 50mg tab ORAL SCH (09:39)
[2019-01-24] MEDS: Isoniazid 300mg tab ORAL SCH (09:39)
[2019-01-24] MEDS: Pantoprazole Inj IVP SCH (09:40)
--- NOTE | 2019-01-24 10:05 | NUR ---
CASE MANAGEMENT:REVIEW 01/24/19 SI: RESPIRATORY FAILURE. R/O Tb S/P 2 UNITS PRBC'S YESTERDAY 97.6 124 30 121/78 SAT~70% ON VENTILATOR SUPPORT W/100% FIO2 WBC+29.0 H/H-10.7/33.2 IS:ZYVOX NG Q12 RIFAMPIN NG QD MYAMBUTOL NG QD INH NG QD PZA NG QD PYRIDOXINE NG QD IV PROTONIX QD IV ZOSYN Q8HR IV VENOFER QHS IVF@75/HR : ICU STATUS DCP: PATIENT IS FROM HOME PLAN: AIRBORNE ISOLATION START TB MEDS DAY #2 THIS CASE WAS REPORTED TO HEALTH DEPARTMENT
--- NOTE | 2019-01-24 10:07 | NUR ---
RD ASSESSMENT & RECOMMENDATIONS SEE CARE ACTIVITY FOR COMPLETE ASSESSMENT DAILY ESTIMATED NEEDS: Needs based on Critical care, 51kg 25-30 kcals/kg [id number] total kcals 1.2-2 g protein/kg 61-102 g total protein 25-30 mL/kg 275-1530 total fluid mLs NUTRITION DIAGNOSIS: Swallowing difficulty r/t respiratory status as evidenced by s/p intubation, now on OGT feeds. CURRENT TF: Vital 1.2 @60ml/hr ENTERAL NUTRITION RECOMMENDATIONS: Vital AF 1.2 @ 50ml/hr x24 hrs to provide 1200ml, 1440 kcal, 90g prot, 973ml free H2O - Maintain current TF Vital 1.2- rec to LOWER goal rate to 50ml/hr x24 hrs - HOB over 30 degrees, Flush per MD ADDITIONAL RECOMMENDATIONS: 1) Recalibrate bed scale as able EMR wt: 125# vs Bedscale wt: 112# 2) OGT feed recs as above 3) Monitor BG, lytes and tolerance to TF, need for alternative -> Rec added ISS for BG control -> Increase water flushes d/t elev Na (149) 4) Feed w/ hemodynamic stability
--- NOTE | 2019-01-24 10:13 | NUR ---
INSURANCE FAXED TO MANNY SCHWARTZ T: [phone] F: [phone] TRACK# [id number]
--- NOTE | 2019-01-24 10:41 | Pulmonology Progress Note ---
Assessment/Plan Assessment/Plan 1. Substance abuse. 2. Hypoxemia. severe refractory 3. Shortness of breath. 4. Coumadin toxicity. 5. Anemia. 6. Respiratory Failure DISCUSSION: Admitted to the ICU. Continue pulmonary hygiene, supportive care. The patient will be continued on albuterol, Atrovent, IV Rocephin, IV fluids, pain control, and antiemetics. DVT and GI prophylaxis and IV fluids. I will follow carefully. Will maintain AC mode; FiO2 100% Increased morphine and Ativan dose; seems to be adequate Has worsening leucocytosis; ID to address CXR shows possible R PTX vs atelectasis; discussed with surgery Findings are consistent with previous pneumonectomy repositioned ETT and NGT poor prognosis Yuri Dorsey M.D. Subjective Interval Events: doing very poorly. ABG noted. Constitutional: Reports: no symptoms HEENT: Repors: no symptoms Respiratory: Reports: no symptoms Cardiovascular: Reports: no symptoms Gastrointestinal/Abdominal: Reports: no symptoms Genitourinary: Reports: no symptoms Neurologic: Reports: no symptoms Allergies: Coded Allergies: No Known Allergies (Unverified , 01/19/19) Objective Last 24 Hour Vital Signs Date Time Temp Pulse Resp B/P (MAP) Pulse Ox O2 Delivery O2 Flow Rate FiO2 01/24/19 09:40 70 01/24/19 09:40 124 30 100 01/24/19 07:45 118 30 100 01/24/19 07:44 Mechanical Ventilator 100 01/24/19 07:44 Mechanical Ventilator 100 01/24/19 06:00 116 19 121/78 (92) 81 01/24/19 05:26 115 29 100 01/24/19 05:00 112 25 121/77 (92) 85 01/24/19 04:00 100 01/24/19 04:00 Mechanical Ventilator Mechanical Ventilator Mechanical Ventilator 01/24/19 04:00 97.6 92 23 155/94 (114) 95 01/24/19 04:00 117 01/24/19 03:47 87 30 90 Mechanical Ventilator 100 01/24/19 03:32 72 31 99 Mechanical Ventilator 100 01/24/19 03:29 117 29 100 01/24/19 03:00 111 28 154/92 (112) 92 01/24/19 02:00 114 30 137/87 (104) 96 01/24/19 01:30 114 29 100 01/24/19 01:00 118 14 149/83 (105) 95 01/24/19 00:00 97.5 118 14 123/79 (94) 95 01/24/19 00:00 102 01/24/19 00:00 Mechanical Ventilator Mechanical Ventilator Mechanical Ventilator 01/24/19 00:00 100 01/23/19 23:03 Mechanical Ventilator 01/23/19 23:00 117 31 97 Mechanical Ventilator 01/23/19 23:00 112 22 131/77 (95) 90 01/23/19 22:54 112 29 100 01/23/19 22:00 113 27 139/84 (102) 97 01/23/19 21:28 118 28 100 01/23/19 21:00 87 29 108/82 (91) 90 01/23/19 20:00 97.6 96 26 107/79 (88) 98 01/23/19 20:00 Mechanical Ventilator Mechanical Ventilator Mechanical Ventilator 01/23/19 20:00 100 01/23/19 20:00 110 01/23/19 19:57 Mechanical Ventilator 01/23/19 19:55 113 26 99 Mechanical Ventilator 01/23/19 19:50 113 26 100 01/23/19 19:00 101 21 147/96 (113) 96 01/23/19 18:00 97 25 139/68 (91) 98 01/23/19 17:00 105 26 148/90 (109) 98 01/23/19 16:39 118 24 100 01/23/19 16:00 110 01/23/19 16:00 Mechanical Ventilator Mechanical Ventilator Mechanical Ventilator 01/23/19 16:00 100 01/23/19 16:00 97.4 98 24 138/108 (118) 96 01/23/19 15:00 97 26 126/90 (102) 96 01/23/19 14:42 Mechanical Ventilator 01/23/19 14:42 123 26 100 01/23/19 14:42 Mechanical Ventilator 01/23/19 14:00 96 26 126/85 (99) 97 01/23/19 13:00 109 25 119/82 (94) 95 01/23/19 12:40 124 25 100 2/28/19 12:00 109 01/23/19 12:00 97.3 109 18 99/68 (78) 97 01/23/19 12:00 100 01/23/19 12:00 Mechanical Ventilator Mechanical Ventilator Mechanical Ventilator 01/23/19 11:22 Mechanical Ventilator 01/23/19 11:22 122 29 100 01/23/19 11:22 Mechanical Ventilator 01/23/19 11:00 113 21 110/89 (96) 99 Intake and Output 01/23/19 01/24/19 19:00 07:00 Intake Total 1305.0 ml 1640.0 ml Output Total 150 ml Balance 1155.0 ml 1640.0 ml IV Total 945.0 ml 920.0 ml Tube Feeding 360 ml 660 ml Other 60 ml Output Urine Total 150 ml # Voids 5 2 General Appearance: no acute distress HEENT: normocephalic Respiratory/Chest: decreased breath sounds Cardiovascular: normal peripheral pulses Abdomen: normal bowel sounds, soft, non tender Microbiology Date/Time Source Procedure Growth Status 01/22/19 06:30 Sputum AFB Specimen Processing Tissue - Final Resulted 01/22/19 06:30 Sputum Acid Fast Bacilli Smear - Final Resulted 01/22/19 06:30 Sputum Acid Fast Bacilli Culture Pending Resulted 01/22/19 00:30 Sputum AFB Specimen Processing Tissue - Final Resulted 01/22/19 00:30 Sputum Acid Fast Bacilli Smear - Final Resulted 01/22/19 00:30 Sputum Acid Fast Bacilli Culture Pending Resulted Laboratory Tests 01/24/19 04:20: White Blood Count 29.0*H, Red Blood Count 4.19L, Hemoglobin 10.7#L, Hematocrit 33.2#L, Mean Corpuscular Volume 79L, Mean Corpuscular Hemoglobin 25.7L, Mean Corpuscular Hemoglobin Concent 32.3, Red Cell Distribution Width 18.5H, Platelet Count 440, Mean Platelet Volume 5.0L, Neutrophils (%) (Auto) , Lymphocytes (%) (Auto) , Monocytes (%) (Auto) , Eosinophils (%) (Auto) , Basophils (%) (Auto) , Neutrophils % (Manual) [Pending], Lymphocytes % (Manual) [Pending], Platelet Estimate [Pending], Platelet Morphology [Pending], Prothrombin Time 15.3H, Prothromb Time International Ratio 1.5H, Sodium Level 149H, Potassium Level 4.0, Chloride Level 113H, Carbon Dioxide Level 23, Anion Gap 13, Blood Urea Nitrogen 13, Creatinine 0.4L, Estimat Glomerular Filtration Rate > 60, Glucose Level 143H, Calcium Level 8.1L, Total Bilirubin 0.6, Aspartate Amino Transf (AST/SGOT) 35, Alanine Aminotransferase (ALT/SGPT) 29, Alkaline Phosphatase 162H, Total Protein 5.3L, Albumin 2.0L, Globulin 3.3, Albumin/Globulin Ratio 0.6L 01/24/19 06:00: M. tuberculosis Complex DNA (PCR) [Pending] 01/24/19 08:30: Arterial Blood pH 7.223*L, Arterial Blood Partial Pressure CO2 71.3*H, Arterial Blood Partial Pressure O2 46.4*L, Arterial Blood HCO3 28.7H, Arterial Blood Oxygen Saturation 75.0*L, Arterial Blood Base Excess -0.3, Prakash Test Positive Current Medications Medications (Trade) Dose Ordered Sig/Roxanne Route PRN Reason Start Time Stop Time Status Last Admin Dose Admin Acetaminophen (Tylenol) 650 mg Q4H PRN ORAL Mild Pain (Pain Scale 1-3) 01/21/19 01:45 02/18/19 01:44 Albuterol Sulfate (Proventil MDI) 2 puff Q4H PRN INH Shortness of Breath 01/21/19 01:46 02/18/19 01:45 Albuterol Sulfate (Proventil) 2.5 mg Q4HRT HHN 01/21/19 03:00 01/25/19 02:59 01/24/19 03:34 Dextrose (Dextrose 50%) 25 ml Q30M PRN IV Hypoglycemia 01/21/19 02:00 02/18/19 20:29 Dextrose (Dextrose 50%) 50 ml Q30M PRN IV Hypoglycemia 01/21/19 02:00 02/18/19 20:29 Diphenhydramine HCl (Benadryl) 25 mg Q6H PRN ORAL Itching/Pruritis 01/21/19 01:48 02/18/19 01:47 Ethambutol HCl (Myambutol) 1,000 mg DAILY ORAL 01/23/19 15:00 02/22/19 14:59 01/23/19 16:56 Iron Sucrose 100 mg/Sodium Chloride 60 ml @ 240 mls/hr BEDTIME IV 01/21/19 21:00 01/25/19 21:14 01/23/19 21:10 Isoniazid (Inh) 300 mg DAILY ORAL 01/23/19 15:00 02/22/19 14:59 01/24/19 09:39 Linezolid (Zyvox) 600 mg EVERY 12 HOURS ORAL 01/23/19 21:00 01/28/19 20:59 01/24/19 09:39 Lorazepam (Ativan 2mg/ml 1ml) 1 mg Q4H PRN IV For Anxiety 01/21/19 12:51 01/27/19 04:50 01/23/19 22:16 Morphine Sulfate (Morphine Sulfate) 2 mg Q4H PRN IVP Moderate Pain (Pain Scale 4-6) 01/21/19 12:47 01/26/19 04:46 01/22/19 10:43 Ondansetron HCl (Zofran) 4 mg Q6H PRN IVP Nausea & Vomiting 01/21/19 01:49 02/18/19 01:48 Pantoprazole (Protonix) 40 mg DAILY IVP 01/23/19 10:00 02/22/19 09:59 01/24/19 09:40 Piperacillin Sod/ Tazobactam Sod 3.375 gm/Dextrose 110 ml @ 27.5 mls/hr EVERY 8 HOURS IVPB 01/22/19 12:00 01/27/19 11:59 01/24/19 05:50 Pyrazinamide (Pza) 1,500 mg DAILY ORAL 01/23/19 15:00 02/22/19 14:59 01/24/19 09:39 Pyridoxine HCl (Vitamin B6) 50 mg DAILY ORAL 01/23/19 15:00 02/22/19 14:59 01/24/19 09:39 Rifampin (Rifadin) 600 mg DAILY ORAL 01/23/19 15:00 02/22/19 14:59 01/24/19 09:39 Sodium Chloride 1,000 ml @ 75 mls/hr [id number] IV 01/21/19 02:00 02/18/19 01:59 01/23/19 21:09 Yuri Dorsey MD Jan 24, 2019 10:41
--- NOTE | 2019-01-24 11:12 | NUR ---
NURSE NOTES: Spoke with Dr Nance regarding this patient. Patient's oxygen saturation has dropped to the 60's at this time. Order given for the PEEP to be increased to 10.
--- NOTE | 2019-01-24 11:14 | NUR ---
RESPIRATORY NOTE: Peep increased to [address] Lee Ann VICENTE
--- NOTE | 2019-01-24 11:16 | NUR ---
NURSE NOTES: x-ray has been taken. Still awaiting result.
--- NOTE | 2019-01-24 11:31 | Surgery Progress Note ---
Surgery Progress Note Subjective Symptoms: worse Additional Comments worsening. desaturating. worsening vent requirement. CXR noted. worsening leukocytosis Objective Last 24 Hour Vital Signs Date Time Temp Pulse Resp B/P (MAP) Pulse Ox O2 Delivery O2 Flow Rate FiO2 01/24/19 11:08 Mechanical Ventilator 100 01/24/19 11:08 Mechanical Ventilator 100 01/24/19 11:01 121 30 100 01/24/19 09:40 70 01/24/19 09:40 124 30 100 01/24/19 07:45 118 30 100 01/24/19 07:44 Mechanical Ventilator 100 01/24/19 07:44 Mechanical Ventilator 100 01/24/19 06:00 116 19 121/78 (92) 81 01/24/19 05:26 115 29 100 01/24/19 05:00 112 25 121/77 (92) 85 01/24/19 04:00 100 01/24/19 04:00 Mechanical Ventilator Mechanical Ventilator Mechanical Ventilator 01/24/19 04:00 97.6 92 23 155/94 (114) 95 01/24/19 04:00 117 01/24/19 03:47 87 30 90 Mechanical Ventilator 100 01/24/19 03:32 72 31 99 Mechanical Ventilator 100 01/24/19 03:29 117 29 100 01/24/19 03:00 111 28 154/92 (112) 92 01/24/19 02:00 114 30 137/87 (104) 96 01/24/19 01:30 114 29 100 01/24/19 01:00 118 14 149/83 (105) 95 01/24/19 00:00 97.5 118 14 123/79 (94) 95 01/24/19 00:00 102 01/24/19 00:00 Mechanical Ventilator Mechanical Ventilator Mechanical Ventilator 01/24/19 00:00 100 01/23/19 23:03 Mechanical Ventilator 01/23/19 23:00 117 31 97 Mechanical Ventilator 01/23/19 23:00 112 22 131/77 (95) 90 01/23/19 22:54 112 29 100 01/23/19 22:00 113 27 139/84 (102) 97 01/23/19 21:28 118 28 100 01/23/19 21:00 87 29 108/82 (91) 90 01/23/19 20:00 97.6 96 26 107/79 (88) 98 01/23/19 20:00 Mechanical Ventilator Mechanical Ventilator Mechanical Ventilator 01/23/19 20:00 100 01/23/19 20:00 110 01/23/19 19:57 Mechanical Ventilator 01/23/19 19:55 113 26 99 Mechanical Ventilator 01/23/19 19:50 113 26 100 01/23/19 19:00 101 21 147/96 (113) 96 01/23/19 18:00 97 25 139/68 (91) 98 01/23/19 17:00 105 26 148/90 (109) 98 01/23/19 16:39 118 24 100 01/23/19 16:00 110 01/23/19 16:00 Mechanical Ventilator Mechanical Ventilator Mechanical Ventilator 01/23/19 16:00 100 01/23/19 16:00 97.4 98 24 138/108 (118) 96 01/23/19 15:00 97 26 126/90 (102) 96 01/23/19 14:42 Mechanical Ventilator 01/23/19 14:42 123 26 100 01/23/19 14:42 Mechanical Ventilator 01/23/19 14:00 96 26 126/85 (99) 97 01/23/19 13:00 109 25 119/82 (94) 95 01/23/19 12:40 124 25 100 01/23/19 12:00 109 01/23/19 12:00 97.3 109 18 99/68 (78) 97 01/23/19 12:00 100 01/23/19 12:00 Mechanical Ventilator Mechanical Ventilator Mechanical Ventilator I&O Intake and Output 01/23/19 01/24/19 19:00 07:00 Intake Total 1305.0 ml 1640.0 ml Output Total 150 ml Balance 1155.0 ml 1640.0 ml IV Total 945.0 ml 920.0 ml Tube Feeding 360 ml 660 ml Other 60 ml Output Urine Total 150 ml # Voids 5 2 Drains: other Cardiovascular: other - tachy Respiratory: decreased breath sounds, other Abdomen: soft, non-distended, decreased bowel sounds Extremities: other Laboratory Tests Test 01/24/19 04:20 01/24/19 06:00 01/24/19 08:30 01/24/19 10:10 White Blood Count 29.0 K/UL (4.8-10.8) *H Red Blood Count 4.19 M/UL (4.20-5.40) L Hemoglobin 10.7 G/DL (12.0-16.0) #L Hematocrit 33.2 % (37.0-47.0) #L Mean Corpuscular Volume 79 FL (80-99) L Mean Corpuscular Hemoglobin 25.7 PG (27.0-31.0) L Mean Corpuscular Hemoglobin Concent 32.3 G/DL (32.0-36.0) Red Cell Distribution Width 18.5 % (11.6-14.8) H Platelet Count 440 K/UL (150-450) Mean Platelet Volume 5.0 FL (6.5-10.1) L Neutrophils (%) (Auto) % (45.0-75.0) Lymphocytes (%) (Auto) % (20.0-45.0) Monocytes (%) (Auto) % (1.0-10.0) Eosinophils (%) (Auto) % (0.0-3.0) Basophils (%) (Auto) % (0.0-2.0) Differential Total Cells Counted 100 Neutrophils % (Manual) 90 % (45-75) H Lymphocytes % (Manual) 5 % (20-45) L Monocytes % (Manual) 5 % (1-10) Eosinophils % (Manual) 0 % (0-3) Basophils % (Manual) 0 % (0-2) Band Neutrophils 0 % (0-8) Platelet Estimate Adequate Platelet Morphology Normal Polychromasia 1+ Hypochromasia 1+ Anisocytosis 1+ Prothrombin Time 15.3 SEC (9.30-11.50) H Prothromb Time International Ratio 1.5 (0.9-1.1) H Sodium Level 149 MMOL/L (136-145) H Potassium Level 4.0 MMOL/L (3.5-5.1) Chloride Level 113 MMOL/L (98-107) H Carbon Dioxide Level 23 MMOL/L (21-32) Anion Gap 13 mmol/L (5-15) Blood Urea Nitrogen 13 mg/dL (7-18) Creatinine 0.4 MG/DL (0.55-1.30) L Estimat Glomerular Filtration Rate > 60 mL/min (>60) Glucose Level 143 MG/DL (74-106) H Calcium Level 8.1 MG/DL (8.5-10.1) L Total Bilirubin 0.6 MG/DL (0.2-1.0) Aspartate Amino Transf (AST/SGOT) 35 U/L (15-37) Alanine Aminotransferase (ALT/SGPT) 29 U/L (12-78) Alkaline Phosphatase 162 U/L (46-116) H Total Protein 5.3 G/DL (6.4-8.2) L Albumin 2.0 G/DL (3.4-5.0) L Globulin 3.3 g/dL Albumin/Globulin Ratio 0.6 (1.0-2.7) L M. tuberculosis Complex DNA (PCR) Pending Arterial Blood pH 7.223 (7.350-7.450) Arterial Blood Partial Pressure CO2 71.3 mmHg (35.0-45.0) *H Arterial Blood Partial Pressure O2 46.4 mmHg (75.0-100.0) Arterial Blood HCO3 28.7 mmol/L (22.0-26.0) H Arterial Blood Oxygen Saturation 75.0 % (95-100) *L Arterial Blood Base Excess -0.3 (-2-2) Prakash Test Positive Vancomycin Level Trough 3.2 ug/mL (5.0-12.0) L Plan Problems: (1) Hydropneumothorax Assessment & Plan: Right lung hydropneumothorax. Seen on plain films. stable Findings related to patients hx of pneumectomy. have noted on prior films and stable. currently unlikely to be etiology but if septic can become area of concern will hold on tube placement for now will follow with recs thank you AM XR (2) Respiratory distress Assessment & Plan: single lung ARDS worsening increase PEEP prognosis guarded Alvaro Nance Jan 24, 2019 11:31
--- NOTE | 2019-01-24 11:33 | NUR ---
NURSE NOTES: Spoke with pharmacy again regarding Ethambutol. The medication has not been brought up from pharmacy yet.
--- NOTE | 2019-01-24 11:44 | Diagnostic Imaging Report ---
Indication: Shortness of breath Technique: One view of the chest Comparison: 01/23/2019 Findings: Stable satisfactory positions of endotracheal tube, improved position of nasogastric tube. Right pneumonectomy again demonstrated. Extensive left lung airspace and reticular interstitial disease appears unchanged. Impression: Improved and now satisfactory position of orogastric tube. Otherwise stable findings as described
[2019-01-24] MEDS: LORazepam Inj 2mg/ml 1ml IV PRN (11:45)
--- NOTE | 2019-01-24 12:00 | NUR ---
NURSE NOTES: Called Dr Dorsey for sedation for this patient due to her being witnessed fighting the vent while on 100% FiO2 and PEEP 10. Dr Dorsey ordered for Morphine 2mg IVP to be given PRN Q4H. Order already present in [facility].
--- NOTE | 2019-01-24 12:54 | Infectious Diseases Prog Note ---
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 Small amount of fluid and otherwise large amount of gas filling the R chest cavity. Severe centrilobular emphysematous changes throughout the left lung. Patchy consolidation with multiple areas of cavitation. Additional nodular densities and reticulonodular densities throught the left lung. Findings are compatible with an infectious/inflammatory process. -NEg: HIV screen, acute hep panel, CrAg -fungal sp cx, bacterial sp cx p -AFB sp smear +3, +1, +2, +2; 3rd one pending, MTB PCR p Supratherapeutic INR; SP Acute respiratory failure s/p intubation 01/21 Afebrile Leukocytosis, increasing -u/a wbc 20-30, nit neg, leuk +3; ucx 40-50K mixed gram positive growth _Bcx NTD HTN asthma/COPD PE on Coumadin substance abuse -UDS+ cocaine, PCP VRE colonized Plan: -Continue empiric TB tx with RIPE #2 and add azithromycin for MAC coverage -monitor LFTs -Switch empiric Zosyn #3 (abx d #5) to Meropenem given increased WBC and ongoing hypoxia -Continue empiric Linezolid #2 (abx d #5) for MRSA coverage and for additional TB coverage -01/22 SP Ceftriaxone, Flagyl #3 -01/19 SP ZOsyn x1 -Airborne precautions -f/u AFB sp cx x3, MTB pCR x1 -Sp cx, Bcx x2. u /a w/ reflex, Cdiff -f/u cx -Monitor CBC/CMP, temperatures -f/u CT chest report -f/u sp cx (bacterial and fungal) -ICU/ETT care -Aspiration precautions -f/u Cocci ab,Histoplasmas ab and ag, legionella ag urine, Asp ag, fungitell, TB spot Thank you for this consultation. Will continue to follow along with you. Discussed with RN. Subjective Allergies: Coded Allergies: No Known Allergies (Unverified , 01/19/19) Subjective afebrile intubated wbc increasing hypoxic despite fio2 100% Objective Vital Signs Last 24 Hour Vital Signs Date Time Temp Pulse Resp B/P (MAP) Pulse Ox O2 Delivery O2 Flow Rate FiO2 01/24/19 12:00 Mechanical Ventilator Mechanical Ventilator Mechanical Ventilator 01/24/19 12:00 100 01/24/19 11:08 Mechanical Ventilator 100 01/24/19 11:08 Mechanical Ventilator 100 01/24/19 11:01 121 30 100 01/24/19 11:00 124 30 107/77 (87) 80 01/24/19 10:00 118 28 96/63 (74) 68 01/24/19 09:40 70 01/24/19 09:40 124 30 100 01/24/19 09:00 119 18 104/73 (83) 71 01/24/19 08:00 Mechanical Ventilator Mechanical Ventilator Mechanical Ventilator 01/24/19 08:00 97.3 119 26 115/76 (89) 73 01/24/19 08:00 100 01/24/19 07:45 118 30 100 01/24/19 07:44 Mechanical Ventilator 100 01/24/19 07:44 Mechanical Ventilator 100 01/24/19 07:00 113 21 117/78 (91) 72 01/24/19 06:00 116 19 121/78 (92) 81 01/24/19 05:26 115 29 100 01/24/19 05:00 112 25 121/77 (92) 85 01/24/19 04:00 100 01/24/19 04:00 Mechanical Ventilator Mechanical Ventilator Mechanical Ventilator 01/24/19 04:00 97.6 92 23 155/94 (114) 95 01/24/19 04:00 117 01/24/19 03:47 87 30 90 Mechanical Ventilator 100 01/24/19 03:32 72 31 99 Mechanical Ventilator 100 01/24/19 03:29 117 29 100 01/24/19 03:00 111 28 154/92 (112) 92 01/24/19 02:00 114 30 137/87 (104) 96 01/24/19 01:30 114 29 100 01/24/19 01:00 118 14 149/83 (105) 95 01/24/19 00:00 97.5 118 14 123/79 (94) 95 01/24/19 00:00 102 01/24/19 00:00 Mechanical Ventilator Mechanical Ventilator Mechanical Ventilator 01/24/19 00:00 100 01/23/19 23:03 Mechanical Ventilator 01/23/19 23:00 117 31 97 Mechanical Ventilator 2/28/19 23:00 112 22 131/77 (95) 90 01/23/19 22:54 112 29 100 01/23/19 22:00 113 27 139/84 (102) 97 01/23/19 21:28 118 28 100 01/23/19 21:00 87 29 108/82 (91) 90 01/23/19 20:00 97.6 96 26 107/79 (88) 98 01/23/19 20:00 Mechanical Ventilator Mechanical Ventilator Mechanical Ventilator 01/23/19 20:00 100 01/23/19 20:00 110 01/23/19 19:57 Mechanical Ventilator 01/23/19 19:55 113 26 99 Mechanical Ventilator 01/23/19 19:50 113 26 100 01/23/19 19:00 101 21 147/96 (113) 96 01/23/19 18:00 97 25 139/68 (91) 98 01/23/19 17:00 105 26 148/90 (109) 98 01/23/19 16:39 118 24 100 01/23/19 16:00 110 01/23/19 16:00 Mechanical Ventilator Mechanical Ventilator Mechanical Ventilator 01/23/19 16:00 100 01/23/19 16:00 97.4 98 24 138/108 (118) 96 01/23/19 15:00 97 26 126/90 (102) 96 01/23/19 14:42 Mechanical Ventilator 01/23/19 14:42 123 26 100 01/23/19 14:42 Mechanical Ventilator 01/23/19 14:00 96 26 126/85 (99) 97 01/23/19 13:00 109 25 119/82 (94) 95 Height (Feet): 5 Height (Inches): 3.00 Weight (Pounds): 125 Objective GENERAL: The patient is awake, in mild respiratory distress. HEENT: Extraocular muscles intact. No lymphadenopathy. intubated ETT CARDIOVASCULAR: S1 and S2. No rubs or gallops. No S3, no S4. PULMONARY: Mild upper airway wheezing with fair air movement in both lung mazariegos. ABDOMEN: Nondistended and nontender. EXTREMITIES: No edema. Microbiology Date/Time Source Procedure Growth Status 01/22/19 06:30 Sputum AFB Specimen Processing Tissue - Final Resulted 01/22/19 06:30 Sputum Acid Fast Bacilli Smear - Final Resulted 01/22/19 06:30 Sputum Acid Fast Bacilli Culture Pending Resulted 01/22/19 00:30 Sputum AFB Specimen Processing Tissue - Final Resulted 01/22/19 00:30 Sputum Acid Fast Bacilli Smear - Final Resulted 01/22/19 00:30 Sputum Acid Fast Bacilli Culture Pending Resulted Laboratory Tests Test 01/24/19 04:20 01/24/19 06:00 01/24/19 08:30 01/24/19 10:10 White Blood Count 29.0 K/UL (4.8-10.8) *H Red Blood Count 4.19 M/UL (4.20-5.40) L Hemoglobin 10.7 G/DL (12.0-16.0) #L Hematocrit 33.2 % (37.0-47.0) #L Mean Corpuscular Volume 79 FL (80-99) L Mean Corpuscular Hemoglobin 25.7 PG (27.0-31.0) L Mean Corpuscular Hemoglobin Concent 32.3 G/DL (32.0-36.0) Red Cell Distribution Width 18.5 % (11.6-14.8) H Platelet Count 440 K/UL (150-450) Mean Platelet Volume 5.0 FL (6.5-10.1) L Neutrophils (%) (Auto) % (45.0-75.0) Lymphocytes (%) (Auto) % (20.0-45.0) Monocytes (%) (Auto) % (1.0-10.0) Eosinophils (%) (Auto) % (0.0-3.0) Basophils (%) (Auto) % (0.0-2.0) Differential Total Cells Counted 100 Neutrophils % (Manual) 90 % (45-75) H Lymphocytes % (Manual) 5 % (20-45) L Monocytes % (Manual) 5 % (1-10) Eosinophils % (Manual) 0 % (0-3) Basophils % (Manual) 0 % (0-2) Band Neutrophils 0 % (0-8) Platelet Estimate Adequate Platelet Morphology Normal Polychromasia 1+ Hypochromasia 1+ Anisocytosis 1+ Prothrombin Time 15.3 SEC (9.30-11.50) H Prothromb Time International Ratio 1.5 (0.9-1.1) H Sodium Level 149 MMOL/L (136-145) H Potassium Level 4.0 MMOL/L (3.5-5.1) Chloride Level 113 MMOL/L (98-107) H Carbon Dioxide Level 23 MMOL/L (21-32) Anion Gap 13 mmol/L (5-15) Blood Urea Nitrogen 13 mg/dL (7-18) Creatinine 0.4 MG/DL (0.55-1.30) L Estimat Glomerular Filtration Rate > 60 mL/min (>60) Glucose Level 143 MG/DL (74-106) H Calcium Level 8.1 MG/DL (8.5-10.1) L Total Bilirubin 0.6 MG/DL (0.2-1.0) Aspartate Amino Transf (AST/SGOT) 35 U/L (15-37) Alanine Aminotransferase (ALT/SGPT) 29 U/L (12-78) Alkaline Phosphatase 162 U/L (46-116) H Total Protein 5.3 G/DL (6.4-8.2) L Albumin 2.0 G/DL (3.4-5.0) L Globulin 3.3 g/dL Albumin/Globulin Ratio 0.6 (1.0-2.7) L M. tuberculosis Complex DNA (PCR) Pending Arterial Blood pH 7.223 (7.350-7.450) Arterial Blood Partial Pressure CO2 71.3 mmHg (35.0-45.0) *H Arterial Blood Partial Pressure O2 46.4 mmHg (75.0-100.0) Arterial Blood HCO3 28.7 mmol/L (22.0-26.0) H Arterial Blood Oxygen Saturation 75.0 % (95-100) *L Arterial Blood Base Excess -0.3 (-2-2) Prakash Test Positive Vancomycin Level Trough 3.2 ug/mL (5.0-12.0) L Current Medications Medications (Trade) Dose Ordered Sig/Roxanne Route PRN Reason Start Time Stop Time Status Last Admin Dose Admin Acetaminophen (Tylenol) 650 mg Q4H PRN ORAL Mild Pain (Pain Scale 1-3) 01/21/19 01:45 3 01:44 Albuterol Sulfate (Proventil MDI) 2 puff Q4H PRN INH Shortness of Breath 01/21/19 01:46 02/18/19 01:45 Albuterol Sulfate (Proventil) 2.5 mg Q4HRT HHN 01/21/19 03:00 01/25/19 02:59 01/24/19 03:34 Dextrose (Dextrose 50%) 25 ml Q30M PRN IV Hypoglycemia 01/21/19 02:00 02/18/19 20:29 Dextrose (Dextrose 50%) 50 ml Q30M PRN IV Hypoglycemia 01/21/19 02:00 02/18/19 20:29 Diphenhydramine HCl (Benadryl) 25 mg Q6H PRN ORAL Itching/Pruritis 01/21/19 01:48 02/18/19 01:47 Ethambutol HCl (Myambutol) 1,000 mg DAILY ORAL 01/23/19 15:00 02/22/19 14:59 01/24/19 11:45 Iron Sucrose 100 mg/Sodium Chloride 60 ml @ 240 mls/hr BEDTIME IV 01/21/19 21:00 01/25/19 21:14 01/23/19 21:10 Isoniazid (Inh) 300 mg DAILY ORAL 01/23/19 15:00 02/22/19 14:59 01/24/19 09:39 Linezolid (Zyvox) 600 mg EVERY 12 HOURS ORAL 01/23/19 21:00 01/28/19 20:59 01/24/19 09:39 Lorazepam (Ativan 2mg/ml 1ml) 1 mg Q4H PRN IV For Anxiety 01/21/19 12:51 01/27/19 04:50 01/24/19 11:45 Morphine Sulfate (Morphine Sulfate) 2 mg Q4H PRN IVP Moderate Pain (Pain Scale 4-6) 01/21/19 12:47 01/26/19 04:46 01/22/19 10:43 Ondansetron HCl (Zofran) 4 mg Q6H PRN IVP Nausea & Vomiting 01/21/19 01:49 02/18/19 01:48 Pantoprazole (Protonix) 40 mg DAILY IVP 01/23/19 10:00 02/22/19 09:59 01/24/19 09:40 Piperacillin Sod/ Tazobactam Sod 3.375 gm/Dextrose 110 ml @ 27.5 mls/hr EVERY 8 HOURS IVPB 01/22/19 12:00 01/27/19 11:59 01/24/19 05:50 Pyrazinamide (Pza) 1,500 mg DAILY ORAL 01/23/19 15:00 02/22/19 14:59 01/24/19 09:39 Pyridoxine HCl (Vitamin B6) 50 mg DAILY ORAL 01/23/19 15:00 02/22/19 14:59 01/24/19 09:39 Rifampin (Rifadin) 600 mg DAILY ORAL 01/23/19 15:00 02/22/19 14:59 01/24/19 09:39 Sodium Chloride 1,000 ml @ 75 mls/hr [id number] IV 01/21/19 02:00 02/18/19 01:59 01/24/19 11:25 Adrianna Doty M.D. Jan 24, 2019 12:54
[2019-01-24] MEDS: Morphine Sulfate 2mg/ml Inj(IV/IM USE ONLY) IVP PRN (13:08)
--- NOTE | 2019-01-24 13:10 | NUR ---
NURSE NOTES: Patient given ativan over an hour ago. patient still witnessed fighting the ventilator setting. Administering Morphine 2mg IVP per Dr Dorsey for sedation.
[2019-01-24] MEDS ORDERED: Azithromycin 250mg tab ORAL SCH (14:00)
[2019-01-24] MEDS: Meropenem 1 GM in NS 55 ML IVPB SCH ×2 (14:19→22:00)
--- NOTE | 2019-01-24 15:30 | NUR ---
NURSE NOTES: Left message for Dr Dorsey regarding patient's continued saturation of 80-89% and systolic blood pressure of 81. Awaiting call back at this time.
--- NOTE | 2019-01-24 16:15 | NUR ---
NURSE NOTES: Left message for Dr Nance regarding the patient's blood pressure of 85/50 and oxygen saturation of 84%. Awaiting call back.
--- NOTE | 2019-01-24 16:20 | NUR ---
NURSE NOTES: Dr Dorsey called back and ordered 500mL bolus.
--- NOTE | 2019-01-24 16:33 | NUR ---
NURSE NOTES: Patient's tube feeding rate changed to 50mL/hr per pharmacist's aide's recommendation.
[2019-01-24] MEDS ORDERED: Tubing IV Secondary IV ONE ×4 (16:42→23:29)
[2019-01-24] MEDS ORDERED: NS 275ml ONE ×3 (16:45→23:29)
[2019-01-24] MEDS ORDERED: D5NS 1000ml IV ONE (17:10)
--- NOTE | 2019-01-24 17:40 | NUR ---
NURSE NOTES: Blood pressure 76/[address] Dorsey ordered dopamine drip and central line insertion.
[2019-01-24] MEDS ORDERED: DOPAMINE 800mg/250ml 250 ML IV SCH (17:45)
--- NOTE | 2019-01-24 18:00 | NUR ---
NURSE NOTES: ER doctor and Dr Nance notified that the patient needs a central line stat. neither are able to come at this time.
--- NOTE | 2019-01-24 18:00 | NUR ---
NURSE NOTES: Patient's sister was called for consent for central line. she did not answer and her mailbox is full. Patient's daughter Adri called. Daughter Adri gave consent for central line insertion.
[2019-01-24] MEDS ORDERED: DOPAmine 400mg/250ml Premix IV SCH (18:15)
--- NOTE | 2019-01-24 18:30 | NUR ---
NURSE NOTES: Dr Nance and ER doctor both contacted again regarding central line insertion. Neither can come. Dr Dorsey called and ordered levophed drip to be given peripherally until central line can be inserted. Patient placed in Trendelenburg position at this time.
--- NOTE | 2019-01-24 18:30 | NUR ---
NURSE NOTES: Patient's sister Lisa called back at this time and was notified about the patient's condition. She stated that she wanted everything done for her sister.
--- NOTE | 2019-01-24 19:00 | NUR ---
NURSE NOTES: Dr Deleon inserted right femoral TLC.
--- NOTE | 2019-01-24 19:30 | NUR ---
RESPIRATORY NOTE: Received pt on AC 16, 500VT, 100%, PEEP +10. Pt intubated w/ ETT 6.0 @ 22cm lipline, secured by anchorfast. Pt obtunded. B/S rhonchi/diminished, sxn minimal amounts of thin, clear-white secretions & occasional bloody secretions. Pt tends to have desaturation, 50-60% spO2 on 100% FiO2, MD Willian aware. Vent plugged into red outlet, ambubag at bedside. Will continue to monitor pt.
--- NOTE | 2019-01-24 19:45 | NUR ---
NURSE NOTES: Called Dr. Dorsey regarding patient's current status. Levophed and Dopamine on max dose, BP at the 80s. O2 saturation 40s% at AC 16 100% FiO2 PEEP 10. With new order of phenylephrine IV
--- NOTE | 2019-01-24 19:45 | NUR ---
HAND-OFF: Report given to MARIAH Damon. Patient has a newly inserted femoral central line. Patient blood pressure now 88/62 on levophed at 30mcg/min and dopamine at 20mcg/kg/min. Patient in trendelenburg position. Patient oxygen saturation poor on PEEP 10 and FiO2 100%. Patient's daughter Adri and sister Lisa have been notified regarding the patients condition.
--- NOTE | 2019-01-24 19:48 | NUR ---
NURSE NOTES: Endorsement received from MARIAH Mena. Patient orally intubated with ET 6.0, 24 lipline. AC 16, Vt 500, PEEP of 5 100%. Saturation 40s%. OGT patent and intact, feeding withheld since previous shift. with right forearm g 20, left wrist g20, NS 75ml/hr. Right femoral TLC present, ongoing levophed 30mcg/kg/min and dopamine 20mcg/kg/min. No response to deep pain, no eye opening. Sinus tachy on the monitor. Placed on john hugger.
[2019-01-24] MEDS: Iron Sucrose 100 MG in NS 55 ML IV SCH (20:18)
[2019-01-24] MEDS: Phenylephrine 50 MG in D5W 245 ML IV SCH ×2 (20:37→20:50)
--- NOTE | 2019-01-24 20:50 | NUR ---
NURSE NOTES: Phneylephrine started to maintain BP
--- NOTE | 2019-01-24 20:55 | Emergency Room Report ---
History of Present Illness General Chief Complaint: Dyspnea/Respdistress Source: Medical Record, PMD Present Illness Allergies: Coded Allergies: No Known Allergies (Unverified , 01/19/19) Patient History Now: No Nursing Documentation-[facility] Past Medical History: No History, Except For Hx Hypertension: Yes Hx Asthma: Yes Hx COPD: Yes Hx Cancer: No Hx Gastrointestinal Problems: No Hx Neurological Problems: No Physical Exam Vital Signs Date Time Temp Pulse Resp B/P (MAP) Pulse Ox O2 Delivery O2 Flow Rate FiO2 01/20/19 07:00 102 30 132/92 (105) 100 01/20/19 07:19 Bi-pap 80 01/20/19 08:00 97.6 Procedures Central Line Central Line : Consent: Emergent Central Line Lumen: triple Maximal Sterile Barrier Tech: yes cap, yes mask, yes sterile gown, yes sterile gloves, yes large sterile sheet, yes hand hygiene, yes chlorhexidine prep Central Line Postion: femoral (R) Complications: none Central Line Post Position: sutured Attempts: One Patient Tolerated: Well Complications: None Progress I was called to the ICU for central line placement Patient has become hypotensive requires potential medication for this and there is no other appropriate IV access Please refer to the note for specifics of the insertion however no difficulties with the procedure were experienced Medical Decision Making Diagnostic Impression: Primary Impression: Dyspnea Additional Impression: Respiratory distress Last Vital Signs Date Time Temp Pulse Resp B/P (MAP) Pulse Ox O2 Delivery O2 Flow Rate FiO2 01/24/19 19:40 108 21 53 Mechanical Ventilator 100 01/24/19 19:29 53/20 01/24/19 16:00 98.4 Disposition: SHORT-TERM HOSP Condition: Serious Referrals: NON PHYSICIAN (PCP) Narciso Aguila DO Jan 24, 2019 20:55
[2019-01-24] MEDS ORDERED: Norepinephrine Bitartrate 8 MG in D5W 500ml 492 ML IV SCH (21:00)
--- NOTE | 2019-01-24 22:06 | NUR ---
CODE BLUE: Patienet pulseless. CPR started and Code blue announced. See Code sheet which remains on paper.
--- NOTE | 2019-01-24 22:08 | General Progress Note ---
Assessment/Plan Assessment/Plan Assessment - Microcytic anemia - Iron deficiency - Resp failure - Hemoptysis - anticoagulated Recommendations - Continue TF - IV Iron - Rx TB - No plans fo GI w/u at this time Subjective Allergies: Coded Allergies: No Known Allergies (Unverified , 01/19/19) Subjective Intubated Isolation due to AFB (+) hypotension noted Objective Last 24 Hour Vital Signs Date Time Temp Pulse Resp B/P (MAP) Pulse Ox O2 Delivery O2 Flow Rate FiO2 01/24/19 21:23 114 24 100 01/24/19 20:50 114 84/56 01/24/19 20:00 100 01/24/19 20:00 Mechanical Ventilator Mechanical Ventilator Mechanical Ventilator 01/24/19 19:40 108 21 53 Mechanical Ventilator 100 01/24/19 19:30 102 27 58 Mechanical Ventilator 100 01/24/19 19:29 53/20 01/24/19 19:28 102 27 100 01/24/19 19:21 47/35 01/24/19 19:00 99 22 53/37 (42) 51 01/24/19 18:00 104 17 58/40 (46) 81 01/24/19 17:22 114 31 100 01/24/19 17:00 121 17 76/48 (57) 84 01/24/19 16:00 100 01/24/19 16:00 127 01/24/19 16:00 Mechanical Ventilator Mechanical Ventilator Mechanical Ventilator 01/24/19 16:00 98.4 127 17 85/50 (62) 83 01/24/19 15:43 Mechanical Ventilator 100 01/24/19 15:43 Mechanical Ventilator 100 01/24/19 15:41 125 30 100 01/24/19 15:00 126 28 79/62 (68) 83 01/24/19 14:00 124 29 87/70 (76) 82 01/24/19 13:22 131 30 100 01/24/19 13:00 124 29 101/79 (86) 80 01/24/19 12:00 98.4 128 29 122/74 (90) 79 01/24/19 12:00 Mechanical Ventilator Mechanical Ventilator Mechanical Ventilator 01/24/19 12:00 117 01/24/19 12:00 100 01/24/19 11:08 Mechanical Ventilator 100 01/24/19 11:08 Mechanical Ventilator 100 01/24/19 11:01 121 30 100 01/24/19 11:00 124 30 107/77 (87) 80 01/24/19 10:00 118 28 96/63 (74) 68 01/24/19 09:40 70 01/24/19 09:40 124 30 100 01/24/19 09:00 119 18 104/73 (83) 71 01/24/19 08:00 117 01/24/19 08:00 Mechanical Ventilator Mechanical Ventilator Mechanical Ventilator 01/24/19 08:00 97.3 119 26 115/76 (89) 73 01/24/19 08:00 100 01/24/19 07:45 118 30 100 01/24/19 07:44 Mechanical Ventilator 100 01/24/19 07:44 Mechanical Ventilator 100 01/24/19 07:00 113 21 117/78 (91) 72 01/24/19 06:00 116 19 121/78 (92) 81 01/24/19 05:26 115 29 100 01/24/19 05:00 112 25 121/77 (92) 85 01/24/19 04:00 100 01/24/19 04:00 Mechanical Ventilator Mechanical Ventilator Mechanical Ventilator 01/24/19 04:00 97.6 92 23 155/94 (114) 95 01/24/19 04:00 117 01/24/19 03:47 87 30 90 Mechanical Ventilator 100 01/24/19 03:32 72 31 99 Mechanical Ventilator 100 01/24/19 03:29 117 29 100 01/24/19 03:00 111 28 154/92 (112) 92 01/24/19 02:00 114 30 137/87 (104) 96 01/24/19 01:30 114 29 100 01/24/19 01:00 118 14 149/83 (105) 95 01/24/19 00:00 97.5 118 14 123/79 (94) 95 01/24/19 00:00 102 01/24/19 00:00 Mechanical Ventilator Mechanical Ventilator Mechanical Ventilator 01/24/19 00:00 100 01/23/19 23:03 Mechanical Ventilator 01/23/19 23:00 117 31 97 Mechanical Ventilator 01/23/19 23:00 112 22 131/77 (95) 90 01/23/19 22:54 112 29 100 Intake and Output 01/23/19 01/24/19 19:00 07:00 Intake Total 1305.0 ml 1775.0 ml Output Total 150 ml Balance 1155.0 ml 1775.0 ml IV Total 945.0 ml 995.0 ml Tube Feeding 360 ml 720 ml Other 60 ml Output Urine Total 150 ml # Voids 5 4 Laboratory Tests 01/24/19 04:20: White Blood Count 29.0*H, Red Blood Count 4.19L, Hemoglobin 10.7#L, Hematocrit 33.2#L, Mean Corpuscular Volume 79L, Mean Corpuscular Hemoglobin 25.7L, Mean Corpuscular Hemoglobin Concent 32.3, Red Cell Distribution Width 18.5H, Platelet Count 440, Mean Platelet Volume 5.0L, Neutrophils (%) (Auto) , Lymphocytes (%) (Auto) , Monocytes (%) (Auto) , Eosinophils (%) (Auto) , Basophils (%) (Auto) , Differential Total Cells Counted 100, Neutrophils % ( Manual) 90H, Lymphocytes % (Manual) 5L, Monocytes % (Manual) 5, Eosinophils % ( Manual) 0, Basophils % (Manual) 0, Band Neutrophils 0, Platelet Estimate Adequate, Platelet Morphology Normal, Polychromasia 1+, Hypochromasia 1+, Anisocytosis 1+, Prothrombin Time 15.3H, Prothromb Time International Ratio 1.5H , Sodium Level 149H, Potassium Level 4.0, Chloride Level 113H, Carbon Dioxide Level 23, Anion Gap 13, Blood Urea Nitrogen 13, Creatinine 0.4L, Estimat Glomerular Filtration Rate > 60, Glucose Level 143H, Calcium Level 8.1L, Total Bilirubin 0.6, Aspartate Amino Transf (AST/SGOT) 35, Alanine Aminotransferase ( ALT/SGPT) 29, Alkaline Phosphatase 162H, Total Protein 5.3L, Albumin 2.0L, Globulin 3.3, Albumin/Globulin Ratio 0.6L 01/24/19 06:00: M. tuberculosis Complex DNA (PCR) [Pending] 01/24/19 08:30: Arterial Blood pH 7.223*L, Arterial Blood Partial Pressure CO2 71.3*H, Arterial Blood Partial Pressure O2 46.4*L, Arterial Blood HCO3 28.7H, Arterial Blood Oxygen Saturation 75.0*L, Arterial Blood Base Excess -0.3, Prakash Test Positive 01/24/19 10:10: Vancomycin Level Trough 3.2L Height (Feet): 5 Height (Inches): 3.00 Weight (Pounds): 125 Objective WDWN AA woman NCAT (+) intubated CTA RR abd soft ND NT no edema Tereso Yoder MD Jan 24, 2019 22:08
--- NOTE | 2019-01-24 22:13 | NUR ---
NURSE NOTES: Patient with ROSC. With order from Dr. Flor for stat ABG, stat Chest xray, stat CMP. ABG results relayed by RT to Dr. Flor with new order for vent settings to AC 24 Vt 450.
--- NOTE | 2019-01-24 22:22 | Emergency Room Report ---
Physical Exam Code Blue. The patient became asystolic. Epi given before I arrived. When I arrived the patient had an organized rhythm however no pulses. Pulses were present and CPR. Patient was admitted with pneumonia. Apparently she is on multiple pressors at this time with end organ failure. According to nursing staff she is been unresponsive. Last 24 Hour Vital Signs Date Time Temp Pulse Resp B/P (MAP) Pulse Ox O2 Delivery O2 Flow Rate FiO2 01/24/19 21:23 114 24 100 01/24/19 20:50 114 84/56 01/24/19 20:00 100 01/24/19 20:00 Mechanical Ventilator Mechanical Ventilator Mechanical Ventilator 01/24/19 19:40 108 21 53 Mechanical Ventilator 100 01/24/19 19:30 102 27 58 Mechanical Ventilator 100 01/24/19 19:29 53/20 01/24/19 19:28 102 27 100 01/24/19 19:21 47/35 01/24/19 19:00 99 22 53/37 (42) 51 01/24/19 18:00 104 17 58/40 (46) 81 01/24/19 17:22 114 31 100 01/24/19 17:00 121 17 76/48 (57) 84 01/24/19 16:00 100 01/24/19 16:00 127 01/24/19 16:00 Mechanical Ventilator Mechanical Ventilator Mechanical Ventilator 01/24/19 16:00 98.4 127 17 85/50 (62) 83 01/24/19 15:43 Mechanical Ventilator 100 01/24/19 15:43 Mechanical Ventilator 100 01/24/19 15:41 125 30 100 01/24/19 15:00 126 28 79/62 (68) 83 01/24/19 14:00 124 29 87/70 (76) 82 01/24/19 13:22 131 30 100 01/24/19 13:00 124 29 101/79 (86) 80 01/24/19 12:00 98.4 128 29 122/74 (90) 79 01/24/19 12:00 Mechanical Ventilator Mechanical Ventilator Mechanical Ventilator 01/24/19 12:00 117 01/24/19 12:00 100 01/24/19 11:08 Mechanical Ventilator 100 01/24/19 11:08 Mechanical Ventilator 100 01/24/19 11:01 121 30 100 01/24/19 11:00 124 30 107/77 (87) 80 01/24/19 10:00 118 28 96/63 (74) 68 01/24/19 09:40 70 01/24/19 09:40 124 30 100 01/24/19 09:00 119 18 104/73 (83) 71 01/24/19 08:00 117 01/24/19 08:00 Mechanical Ventilator Mechanical Ventilator Mechanical Ventilator 01/24/19 08:00 97.3 119 26 115/76 (89) 73 01/24/19 08:00 100 01/24/19 07:45 118 30 100 01/24/19 07:44 Mechanical Ventilator 100 01/24/19 07:44 Mechanical Ventilator 100 01/24/19 07:00 113 21 117/78 (91) 72 01/24/19 06:00 116 19 121/78 (92) 81 01/24/19 05:26 115 29 100 01/24/19 05:00 112 25 121/77 (92) 85 01/24/19 04:00 100 01/24/19 04:00 Mechanical Ventilator Mechanical Ventilator Mechanical Ventilator 01/24/19 04:00 97.6 92 23 155/94 (114) 95 01/24/19 04:00 117 01/24/19 03:47 87 30 90 Mechanical Ventilator 100 01/24/19 03:32 72 31 99 Mechanical Ventilator 100 01/24/19 03:29 117 29 100 01/24/19 03:00 111 28 154/92 (112) 92 01/24/19 02:00 114 30 137/87 (104) 96 01/24/19 01:30 114 29 100 01/24/19 01:00 118 14 149/83 (105) 95 01/24/19 00:00 97.5 118 14 123/79 (94) 95 01/24/19 00:00 102 01/24/19 00:00 Mechanical Ventilator Mechanical Ventilator Mechanical Ventilator 01/24/19 00:00 100 01/23/19 23:03 Mechanical Ventilator 01/23/19 23:00 117 31 97 Mechanical Ventilator 01/23/19 23:00 112 22 131/77 (95) 90 01/23/19 22:54 112 29 100 Sp02 EP Interpretation: reviewed, abnormal - Interpreted as below by me General Appearance: severe distress - Although unresponsive Head: normocephalic Eyes: bilateral eye other - Fixed and dilated ENT: moist mucus membranes, other - Endotracheal tube Neck: other - Flaccid Respiratory: other - Asymmetric breath sounds but they are present bilaterally Cardiovascular #1: other - No pulses Cardiovascular #2: 0 femoral (R) Gastrointestinal: decreased bowel sounds Musculoskeletal: other - Flaccid Neurologic: other - Unresponsive Psychiatric: other - Unresponsive Skin: cyanosis, other - Febrile Critical Care Time Critical Care Time Total Critical Care Time: 30 min bedside evaluation and treatment excludes procedures (code blue). Reason for critical care: Post CODE BLUE treatments and then pronouncement of patient with discussion with family after code and after Possible complications: hypotension, hypertension, [place], shock, arrhythmias, metabolic acidosis, end organ damage, respiratory failure. Interventions: CODE BLUE, discussion with family, review of labs, ventilator adjustments after postcode blood gas Course: Patient with sepsis and endorgan failure with an asystolic arrest. See SHIMA CRANE reports. Return of spontaneous circulation from pulseless electrical activity. After this I discussed with the family the poor prognosis. In addition I ordered blood gas and chest x-ray. Blood gas returned with severe hypercarbia and respiratory acidosis. Ventilator settings were changed. Chest x-ray showed prior infiltrate and prior right lung changes. Apparently the family decided to make the patient DO NOT RESUSCITATE based on what they saw in my discussion. A second code was called and canceled. I was asked to come pronounced the patient. The patient was pronounced. I spoke with the family in an effort to console them. Consultations: nursing staff, EMS, family Performed by: Dr. Flor Patient CPR/Shima Blue CPR/Shima Blue Narrative SHIMA CRANE was called at 2205. CPR was performed by respiratory therapy and nursing staff and supervised by me. Potassium was reviewed and was normal. Bicarbonate also was normal and labs. Pulses were present with CPR only. Patient was bradycardic with complexes however no pulses. This differs from the CODE BLUE report which reported asystole. Atropine was given. Heart rate increased however there is still no pulses. Epinephrine was given again. Still no pulses. As the patient exhibited pulseless electrical activity calcium chloride was given. Pulses were present at this time and there was return of spontaneous circulation 2212. I had a long discussion with the family about the possible ultimate prognosis being poor. Blood gas, chest x-ray. Blood gas returned with severe hypercarbia and respiratory acidosis. I ordered ventilator changes. A second CODE BLUE was called however canceled as the patient decided to make the patient DO NOT RESUSCITATE. I was called to pronounce the patient. The patient was asystolic and unresponsive. She was pronounced by me. Medical Decision Making Diagnostic Impression: Primary Impression: Cardiopulmonary arrest ER Course Patient suffered an asystolic arrest and was resuscitated. See CODE BLUE reports. I was called again to pronounce the patient. Please see CODE BLUE report. Rhythm Strip Diag. Results EP Interpretation: yes Rhythm: NSR, no PVC's, no ectopy Chest X-Ray Diagnostic Results Chest X-Ray Diagnostic Results : Chest X-Ray Ordered: Yes # of Views/Limited/Complete: 1 View Indication: Other EP Interpretation: Yes Interpretation: other - Left infiltrate, chronic right-sided changes post lung collapse and pleural peel no tension pneumothorax Impression: Other Electronically Signed by: Electronically signed by Demetris Flor MD Status: worsened Disposition: Condition: Referrals: NON PHYSICIAN (PCP) Demetris Flor MD Jan 24, 2019 22:22
--- NOTE | 2019-01-24 22:35 | NUR ---
RESPIRATORY NOTE: Pt's vent settings changed to AC 24, 450VT, 100%, PEEP +10 per MD Chacho after obtaining ABG post-CODE. Pt tolerating new settings. Will continue to monitor pt.
--- NOTE | 2019-01-24 22:36 | NUR ---
NURSE NOTES: monitoring manager shows asystole,pulseless,code blue called but aborted since daughters and sister at bedside decided do not attempt resuscitstion, christopher called
--- NOTE | 2019-01-24 22:44 | Diagnostic Imaging Report ---
EXAM: XR Chest, 1 View CLINICAL HISTORY: SCREEN TECHNIQUE: Frontal view of the chest. COMPARISON: 01/24/19, 0851 hours FINDINGS: Lungs: Large amount airspace opacities throughout the left lung, unchanged. Right pneumonectomy Mediastinum: Mediastinal border is obscured by airspace opacities. Bones/joints: Unremarkable for the patient's age. Tubes, lines and devices: Endotracheal tube, enteric tube are again noted. IMPRESSION: No substantial change
[2019-01-24] MEDS ORDERED: Phenylephrine 100 MG in D5W 500ml 490 ML IV SCH (23:00)
--- NOTE | 2019-01-24 23:04 | NUR ---
NURSE NOTES: PRONOUNCEMENT: ER MD Dr. Flor assessed the patient. pronounced at 2304H. Family at bedside, Dr. Flor talked to the family. Post mortem care done. All belongings given to the patient's sister with belongings form signed. Ring at right finger and bracelet at left wrist remained with the body, patient's daughter aware. Dr. Dorsey, [facility], Doors Prefitter's office informed c/o Charge Nurse.
[2019-01-24] MEDS ORDERED: Levophed 4mg/4mL Inj IV ONE (23:29)
[2019-01-24] MEDS ORDERED: DOPamine 400mg/250ml BTL IV ONE (23:29)
[2019-01-24] MEDS ORDERED: Sterile Water Irrig 1000ml IRRIG ONE (23:29)
[2019-01-24] MEDS ORDERED: NS 500ML ONE (23:29)
[2019-01-24] MEDS ORDERED: Atropine Inj 1mg/10ml Syr ONE (23:29)
[2019-01-24] MEDS ORDERED: Calcium Chloride 100mg/ml Vial ONE (23:29)
[2019-01-25] MEDS ORDERED: Azithromycin 250mg tab ORAL SCH (09:00)
--- NOTE | 2019-01-27 09:48 | Discharge Summary ---
Discharge Summary Discharge Summary _ SUMMARY DATE OF ADMISSION: 01/19/2019 DATE OF EXPIRATION:01/24/2019 REASON FOR ADMISSION: 58 years old female with past medical history of pulmonary embolism, substance abuse, hypertension, on anticoagulation/Coumadin, presented to emergency department for evaluation due to worsening shortness of breath. No chest pain. Upon evaluation in emergency department urine toxicology screen was positive for PCP and cocaine. INR was 9.7. Hemoglobin 6.2. CT of the chest revealed probable prior right pneumonectomy. Severe centrilobular emphysematous changes throughout the left lung. Patchy consolidation with multiple areas of cavitation . Additional nodular density and reticular nodular density throughout the left lung. Irregular pleural thickening throughout the right hemithorax. Nonspecific enlarged mediastinal and axillary lymph nodes. No definite pulmonary emboli . [facility] was contacted for patient evaluation by cardiothoracic surgeon. Patient was initially accepted by Dr. Jean. [facility] called back and cancelled transfer , until review of the CT of the chest . Cardiothoracic surgeon from [facility] called back after reviewing of CT scan of the chest and declined transfer. He felt it was a congenital problem. Patient was subsequently admitted to ICU for further management. CONSULTANTS: bag loader pulmonary Dr. Dorsey ID specialist Dr. Bhatt GI specialist dr. Yoder surgery Dr. Nance [facility]: Patient admitted to ICU. Patient received 2 units of fresh frozen plasma to assist with reversal of elevated INR and 2 units of packed red blood cells. Coumadin was on hold. INR was trending down. Patient was started on empiric antibiotics and IV fluids. Supplemental oxygen and pulmonary toilet provided and titrated as needed. GI consult closely followed. Anemia workup revealed evidence of iron deficiency anemia. Patient started on IV Venofer. Hemoglobin and hematocrit were closely monitored with goal to keep hemoglobin above 7. Patient received additional 2 units of packed red blood cells on 01/23. Per GI agricultural consultant, patient was not stable for GI procedure at this time. CEA with minimal elevation -5.8. On 01/21 patient required emergency oral intubation. Chest x-ray confirmed placement of endotracheal tube. Research And Evaluation Analyst closely followed. Patient was followed up with chest x-ray and ABG. Settings were titrated as needed. Pain management was addressed. Sedation with Ativan provided as needed. Venous duplex bilateral lower extremity revealed no evidence of acute DVT. Leukocytosis was worsening. Overall prognosis remained poor. Surgeon consulted. Per surgeon patient had stable right lung hydropneumothorax, consistent with known history of prior pneumonectomy . ID specialist followed. 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 Per [facility] of [facility] , patient had prior history of MAC. HIV screen was non reactive. Acute hepatitis panel was negative. Cryptococcal antigen was negative Fungal culture was pending . Blood culture were negative. Urine culture revealed mixed gram-positive organisms. Sputum for AFB times 4 ( two were done on the same day) was positive. MTB by PCP was pending along with TB test. Patient was on empiric TB treatment with RIPE, azithromycin was added for MAC coverage. Zosyn was changed to meropenem given worsening leukocytosis and ongoing hypoxia. Zyvox continued for MRSA coverage and additional TB coverage. On 01/24 patient became hypotensive and required pressors. Central line was placed by emergency room physician via right femoral vein. Patient was on three different pressors with maximum dosing: Dopamine, Levophed , phenylephrine. Despite maximum dose of 3 different pressor patient was hemodynamically unstable. CXR demonstrated single lung/left worsening ARDS. Later during the day patient became asystolic and CODE BLUE was called. Patient started on resuscitation as per ACLS protocol. Patient had return of spontaneous circulation. ER doctor had a long discussion with the family about ultimate poor prognosis. At that time ABG results returned with severe hypercapnia and respiratory acidosis. Ventilator changes were adjusted. Second CODE BLUE was called shortly afterwards, however was canceled since family decided on DNR status. Patient was pronounced on 01/24 at 23: 04. 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 I have been assigned to dictate discharge summary for this account. I was not involved in the patient's management. Courtney Carias NP Jan 27, 2019 09:48
== END 2019-01-24 23:30 | disposition expired | DRG 137 ==
LOC: EDBD 10:02 → EMR 10:16 → EDBEDREQSVC 11:37 → EDBEDREQ 12:18 → ICU 12:20 → EDBEDREQ 12:29 → CANBEDREQ 15:08 → 2W 01-20 23:46 → ICU 01-21 01:31
DX: A15.0 Tuberculosis of lung (principal); J96.01 Acute respiratory failure with hypoxia; R04.2 Hemoptysis; D68.8 Other specified coagulation defects; F14.10 Cocaine abuse, uncomplicated; D50.9 Iron deficiency anemia, unspecified; J18.9 Pneumonia, unspecified organism; F16.10 Hallucinogen abuse, uncomplicated; Z86.711 Personal history of pulmonary embolism; Z79.01 Long term (current) use of anticoagulants; T45.515A Adverse effect of anticoagulants, initial encounter; Y92.9 Unspecified place or not applicable; J98.01 Acute bronchospasm; J94.2 Hemothorax; N39.0 Urinary tract infection, site not specified; J80 Acute respiratory distress syndrome
CPT/HCPCS: 36415; 36600; 71045; 71260; 74018; 80048; 80053; 80202; 80307; 81003; 82378; 82550; 82553; 82607; 82746; 82803; 83540; 83550; 83605; 83735; 84484; 85007; 85025; 85610; 86171; 86635; 86703; 86705; 86709; 86803; 86850; 86900; 86901; 86920; 86927; 87040; 87081; 87086; 87116; 87340; 87449; 87556; 92950; 93005; 93970; 94002; 94003; 94640; 94660; 94664; 96361; 96365; 96366; 96367; 96375; 96376; 99291; J0171; J2370; J2405